=== PATIENT | male | born 1950 | race American Indian/Alaskan Native ===

== ENCOUNTER 2021-09-01 14:25 | Emergency (ER) | payer MEDICARE, MEDICAID, SELFPAY ==
[2021-09-01 14:29] VITALS: BP 127/69; PULSE 67; RESP 22; TEMP 36.7; O2SAT 99
[2021-09-01] MEDS: PROPARACAINE 0.5% OPHTH SOL 1 DROPS EYE-BOTH (16:25)
--- NOTE | 2021-09-01 16:32 | ED_ITS ---
HPI - Eye Problem <Tyree Louise PA-C - Last Filed: 09/03/21 12:03> General Chief complaint: Eye Problems Stated complaint: EYE PAIN SHARP PAIN UNABLE TO OPEN Time Seen by Provider: 09/01/21 16:15 Source: patient Mode of arrival: Ambulatory History of Present Illness HPI Narrative: 62-year-old male presenting to the ED complaining of bilateral eye pain that started yesterday no reported eye trauma or any foreign bodies in her knee I patient started complaining of mostly pain in the left eye however it progressed into both eyes he was evaluated by PCP was told to come to the emergency room for continued evaluation no prior eye history no recent trauma no foreign body no known exposure reported patient reporting pain in both eyes. Related Data Home Medications Medication Instructions Recorded Confirmed aspirin 81 mg chewable tablet 81 mg PO DAILY 11/19/17 03/15/18 benztropine 0.5 mg tablet 0.5 mg PO TID 11/19/17 03/15/18 fluoxetine 60 mg tablet 60 mg PO DAILY 11/19/17 03/15/18 hydroxyzine pamoate 25 mg capsule 25 mg PO TID PRN 11/19/17 03/15/18 levetiracetam 500 mg tablet 500 mg PO Q12H 11/19/17 03/15/18 risperidone 2 mg tablet 4 mg PO DAILY 11/19/17 03/15/18 Previous Rx's Medication Instructions Recorded meclizine 25 mg tablet 25 mg PO BID PRN #10 tab 11/19/17 Allergies Allergy/AdvReac Type Severity Reaction Status Date / Time No Known Drug Allergies Allergy Verified 11/19/17 12:26 Review of Systems <Tyree Louise PA-C - Last Filed: 09/03/21 12:03> Review of Systems ROS Unobtainable: All systems reviewed & are unremarkable except as noted in HPI and below Constitutional Constitutional: Denies chills, Denies fatigue, Denies fever(s), Denies frequent falls, Denies lethargy and Denies weakness Eyes Eyes: Reports change in vision, Denies eye discharge, Reports irritation, Denies loss of vision and Reports eye pain ENT Ears, Nose, Mouth, and Throat: Denies change in voice, Denies dizziness, Denies neck pain, Denies sore throat and Denies throat swelling Cardiovascular Cardiovascular: Denies chest pain, Denies irregular heart rhythm, Denies lightheadedness, Denies palpitations, Denies dyspnea, Denies dyspnea on exertion and Denies orthopnea Respiratory Respiratory: Denies cough, Denies dyspnea, Denies dyspnea on exertion and Denies wheezing Gastrointestinal Gastrointestinal: Denies abdominal pain, Denies change in bowel habits, Denies diarrhea, Denies nausea and Denies vomiting Genitourinary Genitourinary: Denies hematuria, Denies flank pain, Denies urinary incontinence and Denies urinary urgency Musculoskeletal Musculoskeletal: Denies back pain, Denies muscle weakness, Denies neck pain, Denies numbness and Denies tingling Integumentary/Breasts Skin/Breast: Denies pruritus, Denies erythema, Denies rash and Denies wounds Neurologic Neurologic: Denies behavioral changes, Denies confusion, Denies dizziness, Denies frequent falls, Denies loss of vision, Denies numbness, Denies tingling and Denies weakness Psychiatric Psychiatric: Denies anxiety, Denies behavioral changes, Denies confusion, Denies depression, Denies homicidal ideation and Denies suicidal ideation Endocrine Endocrine: Denies fatigue, Denies flushing and Denies palpitations Hematologic/Lymphatic Hematologic/Lymphatic: Denies easy bruising Allergic/Immunologic Allergic/Immunologic: Denies urticaria, Denies throat swelling and Denies wheezing Patient History <Tyree Louise PA-C - Last Filed: 09/03/21 12:03> Medical History Anemia Epilepsy Psychoactive substance abuse Schizophrenia Tobacco abuse Surgical History No significant past surgical history No significant past surgical history Social History household members: none lives independently: Yes occupational status: unemployed Smoking Status: Current some day smoker alcohol intake: never substance use type: does not use Smoking Status: Current some day smoker Substance Use Type: does not use Exam <Tyree Louise PA-C - Last Filed: 09/03/21 12:03> Initial Vital Signs Initial Vital Signs: Vital Signs Temperature 98.1 F 09/01/21 14:29 Pulse Rate 67 09/01/21 14:29 Respiratory Rate 22 09/01/21 14:29 Blood Pressure 127/69 09/01/21 14:29 Pulse Oximetry 99 09/01/21 14:29 Eyes General: appearance normal, both eyes and all related structures Conjunctivae: conjunctival abnormality bilaterally other Cornea: fluorescein used Pupils: PERRL EOM: EOM intact bilaterally Other: Tonometer her performed ocular pressure in the right side measured at 17 left side 19 <Maddie Senior DO - Last Filed: 09/02/21 06:50> Initial Vital Signs Initial Vital Signs: Vital Signs Temperature 98.1 F 09/01/21 14:29 Pulse Rate 67 09/01/21 14:29 Respiratory Rate 22 09/01/21 14:29 Blood Pressure 127/69 09/01/21 14:29 Pulse Oximetry 99 09/01/21 14:29 Course <Tyree Louise PA-C - Last Filed: 09/03/21 12:03> Orders Ordered: Discontinued Medications Fluorescein Sodium (Fluorescein 1 Mg Strip) 1 mg EYE-BOTH NOW ONE Stop: 09/01/21 16:32 Last Admin: 09/01/21 17:11 Dose: 1 mg Documented by: SIMONE Proparacaine HCl (Proparacaine 0.5% Ophth Ilnda) 1 drops EYE-BOTH NOW ONE Stop: 09/01/21 16:21 Last Admin: 09/01/21 16:25 Dose: 1 drop Documented by: SIMONE Vital Signs Vital signs: Vital Signs - 8 hr 09/01/21 14:29 Temperature 98.1 F Pulse Rate 67 Respiratory Rate 22 Blood Pressure 127/69 Pulse Oximetry 99 <Maddie Senior DO - Last Filed: 09/02/21 06:50> Orders Ordered: Discontinued Medications Fluorescein Sodium (Fluorescein 1 Mg Strip) 1 mg EYE-BOTH NOW ONE Stop: 09/01/21 16:32 Last Admin: 09/01/21 17:11 Dose: 1 mg Documented by: SIMONE Proparacaine HCl (Proparacaine 0.5% Ophth Linda) 1 drops EYE-BOTH NOW ONE Stop: 09/01/21 16:21 Last Admin: 09/01/21 16:25 Dose: 1 drop Documented by: SIMONE Reevaluation(s) Reevaluation #1: Patient signed out to myself by Dr. Curry and IAN Louise. Patient is accompanied by his family. Reviewed his HPI and exam. Patient does normally wear glasses he has had decreased vision today his intra-ocular pressures were 17 and 19 with a Chevy dendritic almost cactus like lesion on the right the medial canthus upwards and what appeared to be a sort of wide corneal abrasion on the left. Very atypical no skin changes. Patient does not have any known autoimmune history. He does have schizophrenia. He does not wear contacts. After discussion with Ophthalmology they feel would be appropriate for patient to come down with his atypical type exam findings and the different pathways of treatment that would occur. Patient's family is agreeable to this they have transportation as he has a travel elder and plan to transport via private auto. Time: 20:31 Consultations Consultation #1: Dr. Toney, ophthalmology [facility] accepts for transfer to [facility] Emergency Department for further evaluation. Vital Signs Vital signs: Vital Signs - 8 hr 09/01/21 14:29 Temperature 98.1 F Pulse Rate 67 Respiratory Rate 22 Blood Pressure 127/69 Pulse Oximetry 99 MDM - Eye Problem <Tyree Louise PA-C - Last Filed: 09/03/21 12:03> Lab Data Labs: Lab Results 09/01/21 Range/Units 20:34 SARS-CoV-2 (PCR) Negative (Negative) <Maddie Sneior DO - Last Filed: 09/02/21 06:50> Lab Data Labs: Lab Results 09/01/21 Range/Units 20:34 SARS-CoV-2 (PCR) Negative (Negative) MDM Narrative Medical decision making narrative: This is a 70-year-old male comes in with sharp by pain. Patient was evaluated by Dr. Rivera as well as POLO Louise. Concern for may be dendritic lesion versus corneal abrasion but bilaterally with the atypical story. Patient does not have any exam findings otherwise consistent with shingles. Spoke with ophthalmology who would like to see him at [facility] and patient was transferred via private auto. Discharge Plan Departure Patient Disposition: [facility] Clinical Impression: Corneal abrasion Activity Restrictions/Additional Instructions: Go directly to [facility] Emergency Department for further evaluations of the abrasions or injuries to her cornea and eye. You are being transferred by private auto. When you present to the emergency department given the packet of paperwork that was given to him the department. COVID swab is pending and will be faxed to the emergency department. Prescriptions: No Action hydroxyzine pamoate 25 mg Capsule 25 mg PO TID PRN (Reason: Anxiety) 0RF risperidone 2 mg Tablet 4 mg PO DAILY 0RF fluoxetine 60 mg Tablet 60 mg PO DAILY 0RF benztropine 0.5 mg Tablet 0.5 mg PO TID 0RF levetiracetam 500 mg Tablet 500 mg PO Q12H 0RF aspirin 81 mg Tablet,Chewable 81 mg PO DAILY 0RF meclizine 25 mg tablet 25 mg PO BID PRN (Reason: vertigo) Qty: 10 0RF
[2021-09-01] MEDS: FLUORESCEIN 1 MG STRIP EYE-BOTH (17:11)
[2021-09-01 20:49] VITALS: PULSE 89; RESP 14; O2SAT 97
[2021-09-01 21:07] LABS: COVID19 -Nasal RAPID Negative (Negative)
--- NOTE | 2021-09-01 21:16 | PC.NURSE ---
Negative Covid results faxed to [facility] / transfer center @ [phone].
== END 2021-09-01 20:52 | disposition short-term general hospital (02) ==
PROVIDERS: Emergency Medicine; Emergency Provider Physician Assistant
DX: S05.02XA Injury of conjunctiva and corneal abrasion without foreign body, left eye, initial encounter (principal); S05.01XA Injury of conjunctiva and corneal abrasion without foreign body, right eye, initial encounter; X58.XXXA Exposure to other specified factors, initial encounter; Z20.822 Contact with and (suspected) exposure to COVID-19
CPT/HCPCS: 87635; 99282; C9803

== ENCOUNTER 2021-12-02 19:55 | Emergency (ER) | payer MEDICARE, MEDICAID, SELFPAY ==
[2021-12-02 19:57] VITALS: BP 167/73; PULSE 72; O2SAT 99
[2021-12-02 19:59] VITALS: BP 163/73; PULSE 85; RESP 18; TEMP 36.9; O2SAT 99; BMI 25.6
[2021-12-02 20:00] VITALS: PULSE 69; O2SAT 99
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
== END 2021-12-02 20:42 | disposition left against medical advice (07) ==
LOC: ED 20:39
PROVIDERS: Emergency Provider Emergency Medicine
DX: S40.011A Contusion of right shoulder, initial encounter (principal); Y04.2XXA Assault by strike against or bumped into by another person, initial encounter; Y92.59 Other trade areas as the place of occurrence of the external cause; Z53.29 Procedure and treatment not carried out because of patient's decision for other reasons
CPT/HCPCS: 36415; 99282; 99284

== ENCOUNTER 2022-04-01 19:28 | Emergency (ER) | payer MEDICARE, MEDICAID, SELFPAY ==
[2022-04-01] VITALS (14 sets, daily range): BP systolic 135–152; BP diastolic 65–99; PULSE 55–67; RESP 18–32; TEMP 36.6; O2SAT 90–99
--- NOTE | 2022-04-01 19:33 | DI.CT.S_ITS ---
PROCEDURE: CT HEAD/BRAIN WO CON INDICATIONS: altered LOC TECHNIQUE: Noncontrast 4.5 mm thick angled axial sections acquired from the foramen magnum to the vertex, with coronal and sagittal reformats. For radiation dose reduction, the following was used: automated exposure control, adjustment of mA and/or kV according to patient size. COMPARISON: [facility], CT, CT HEAD WITHOUT CONTRAST, 02/10/2021, 21:01. [facility], CT, CT HEAD/BRAIN WO CON, 11/19/2017, 12:02. FINDINGS: Image quality: Excellent. CSF spaces: Basal cisterns are patent. No extra-axial fluid collections. The ventricles are symmetric in size and shape. Brain: No intracranial bleeds or masses. There is cerebral volume loss for age, with resultant ventricular and sulcal prominence. There are periventricular and deep white matter chronic small vessel ischemic changes. There is intracranial internal carotid artery atherosclerosis. Skull and face: Calvarium and visualized facial bones appear intact, without suspicious lesions. There is a lateral right forehead laceration a small superficial radiopaque scalp foreign body. Reference image /. Sinuses: Visualized sinuses and mastoids are clear. IMPRESSION: 1. Scalp laceration with small foreign body. 2. No evidence acute intracranial process. Dictated by: Jimi Colunga M.D. on 04/01/2022 at 20:17 Approved by: Jimi Colunga M.D. on 04/01/2022 at 20:19
--- NOTE | 2022-04-01 19:33 | DI.CT.S_ITS ---
PROCEDURE: CT CERVICAL SPINE WO CON INDICATIONS: altered LOC TECHNIQUE: Noncontrast 3 mm thick sections acquired from the skull base to the T4 level. Sagittal and coronal reformats were then constructed. For radiation dose reduction, the following was used: automated exposure control, adjustment of mA and/or kV according to patient size. COMPARISON: [facility], CT, CT CERVICAL SPINE WO CON, 11/19/2017, 12:02. FINDINGS: Image quality: Excellent. Bones: No fractures or dislocations. Visualized superior ribs are intact. Severe cervical spondylosis with advanced multilevel facet arthropathy and multilevel bony foraminal narrowing. Soft tissues: Prevertebral soft tissues are normal in thickness. No paravertebral hematomas. No apical pneumothoraces. Biapical emphysematous change with multiple right apical blebs. IMPRESSION: 1. No evidence acute cervical fracture or dislocation. 2. Severe cervical spondylosis. 3. Biapical emphysematous change. Dictated by: Jimi Colunga M.D. on 04/01/2022 at 20:19 Approved by: Jimi Colunga M.D. on 04/01/2022 at 20:21
--- NOTE | 2022-04-01 19:34 | ED_ITS ---
HPI - Trauma General Chief Complaint: Trauma Stated Complaint: Altered LOC Time Seen by Provider: 04/01/22 19:33 Source: patient Mode of arrival: Ambulatory Limitations: no limitations History of Present Illness HPI narrative: 71-year-old male with history of epilepsy, substance abuse and schizophrenia who presents after ground level fall. Fall happened around noon today, patient states he was here the [place] and taken to a local clinic where he left. Family was called states he is not acting his normal self. Patient does have a laceration on his forehead. Patient is able to tell me had a fall, he states he was over by the [place], does not believe that he passed out or had loss of consciousness but he does have a headache, he does feel off today, he denies neck, chest or back pain. No numbness or tingling. He denies any vomiting. Denies any shortness of breath. He states he has problems with urination normally supposed to take medicine for this. Denies any other GI or urinary symptoms. Patient states it feels like there is something stuck under the skin at his cut. He states there was a lot of bleeding. Patient states he takes medication for his brain to make it work better, he states he has a caregiver that comes to his house and helps with him. Patient denies any drug allergies. Denies alcohol. Related Data Home Medications Medication Instructions Recorded Confirmed aspirin 81 mg chewable tablet 81 mg PO DAILY 11/19/17 03/15/18 benztropine 0.5 mg tablet 0.5 mg PO TID 11/19/17 03/15/18 fluoxetine 60 mg tablet 60 mg PO DAILY 11/19/17 03/15/18 hydroxyzine pamoate 25 mg capsule 25 mg PO TID PRN Anxiety 11/19/17 03/15/18 levetiracetam 500 mg tablet 500 mg PO Q12H 11/19/17 03/15/18 risperidone 2 mg tablet 4 mg PO DAILY 11/19/17 03/15/18 Previous Rx's Medication Instructions Recorded meclizine 25 mg tablet 25 mg PO BID PRN vertigo #10 tabs 11/19/17 cephalexin 500 mg capsule 500 mg PO BID #10 caps 04/02/22 Allergies Allergy/AdvReac Type Severity Reaction Status Date / Time No Known Drug Allergies Allergy Verified 12/02/21 20:02 Review of Systems Review of Systems ROS Unobtainable: All systems reviewed & are unremarkable except as noted in HPI and below Patient History Medical History Anemia Epilepsy Psychoactive substance abuse Schizophrenia Tobacco abuse Surgical History No significant past surgical history No significant past surgical history Social History household members: none lives independently: Yes occupational status: unemployed Smoking Status: Current some day smoker alcohol intake: never substance use type: does not use Smoking Status: Current some day smoker Substance Use Type: does not use Exam Narrative Exam Narrative: GEN: Patient appears in moderate distress. Patient seems quite uncomfortable, he seems mildly confused. HEAD: Patient has 4 cm laceration over the scalp with the edge of the hairline which does have feels like a large foreign body, no raccoon/Elder sign. NECK: Nontender, painless range of motion, trachea midline Negative for Nexus criteria, there is no midline line tenderness, distracting injury, altered mental status, neuro deficit, recent EtOH. EYES: PERRLA, EOMI ENT: External inspection normal otherwise, trachea is midline, TM's are normal no hemotypanum, Nares are clear, no septal hematoma, no dental or oral injury, airway is normal and with normal occlusion, No bony tenderness RESP: Chest is nontender and has symmetric movement, no ecchymosis, breath sounds are normal no crackles, wheezes or rales CVS: Heart sounds are normal, no murmur noted, No JVD. ABG/GI: Nontender, soft, normal bowel sounds, no distention, no organomegaly, pelvic rock is negative NEURO: Oriented self and location, neuro is grossly intact, sensation and motor is normal all 4 extremities moving, cranial nerves II through XII are intact, GCS is 14 PSYCH: Normal mood and affect SKIN: Intact, warm and dry, no crepitus and without decubitus BACK: No CVA tenderness, no vertebral tenderness, no step-off's, no crepitus EXT: Atraumatic, hips are nontender, no pedal edema, normal color and temperature, normal range of motion of extremities with normal tendon exam, 2+ pulses in all four extremities Initial Vital Signs Initial Vital Signs: Vital Signs Temperature 97.9 F 04/01/22 19:20 Pulse Rate 67 04/01/22 19:20 Respiratory Rate 18 04/01/22 19:20 Blood Pressure 147/85 H 04/01/22 19:20 Pulse Oximetry 99 04/01/22 19:20 Oxygen Delivery Method 04/01/22 19:20 Course Orders Ordered: ED Orders 04/02/22 01:19 Urine Drug Screen, Rapid Stat Discontinued Medications Cephalexin HCl (Cephalexin 250 Mg Capsule) 500 mg PO NOW ONE Stop: 04/02/22 03:06 Last Admin: 04/02/22 03:09 Dose: 500 mg Documented By: COLT Lidocaine HCl (Lidocaine 2% Inj Mdv 10ml) 10 mg INJ INTRA-OP ONE Stop: 04/01/22 22:12 Last Admin: 04/02/22 02:59 Dose: Not Given Documented By: COLT Lidocaine/Prilocaine (Lidocaine/Prilocaine 5 Gm) 5 gm TOP NOW ONE Stop: 04/01/22 22:12 Last Admin: 04/01/22 22:32 Dose: 5 gm Documented By: AMADEO Morphine Sulfate (Morphine 2 Mg/Ml Inj) 2 mg IV NOW ONE Stop: 04/01/22 22:12 Last Admin: 04/01/22 22:32 Dose: 2 mg Documented By: AMADEO Vital Signs Vital signs: Vital Signs - 8 hr 04/02/22 00:00 04/02/22 00:01 04/02/22 00:01 Pulse Rate 54 L 54 L Respiratory Rate 22 19 Blood Pressure 135/65 Pulse Oximetry 98 98 04/02/22 00:30 04/02/22 00:31 04/02/22 00:31 Pulse Rate 53 L 53 L Respiratory Rate 22 22 Blood Pressure 143/80 H Pulse Oximetry 97 93 04/02/22 01:00 04/02/22 01:01 04/02/22 01:01 Pulse Rate 53 L 53 L Respiratory Rate 31 H 24 Blood Pressure 126/60 Pulse Oximetry 98 97 04/02/22 01:30 04/02/22 01:30 04/02/22 02:00 Pulse Rate 55 L Respiratory Rate 23 Blood Pressure 118/91 H 127/63 Pulse Oximetry 98 04/02/22 02:00 04/02/22 02:30 04/02/22 02:31 Pulse Rate 52 L 74 Respiratory Rate 26 H 20 Blood Pressure 144/61 H Pulse Oximetry 98 95 04/02/22 02:31 04/02/22 03:00 04/02/22 03:01 Pulse Rate 68 59 L 59 L Respiratory Rate 33 H 28 H 22 Blood Pressure Pulse Oximetry 94 94 94 04/02/22 03:01 04/02/22 03:30 04/02/22 03:31 Pulse Rate 53 L 53 L Respiratory Rate 24 24 Blood Pressure 142/65 H Pulse Oximetry 94 94 04/02/22 03:31 04/02/22 04:00 04/02/22 04:30 Pulse Rate 52 L Respiratory Rate 19 Blood Pressure 133/60 138/67 Pulse Oximetry 98 04/02/22 04:30 04/02/22 05:00 04/02/22 05:00 Pulse Rate 51 L 51 L Respiratory Rate 18 19 Blood Pressure 129/63 Pulse Oximetry 99 99 04/02/22 05:30 04/02/22 06:00 04/02/22 06:00 Pulse Rate 54 L 61 Respiratory Rate 23 34 H Blood Pressure 141/59 H Pulse Oximetry 99 98 04/02/22 06:07 04/02/22 06:07 04/02/22 06:30 Pulse Rate 65 71 Respiratory Rate 43 H 40 H Blood Pressure 139/64 Pulse Oximetry MDM - Trauma Lab Data Result diagrams: 04/01/22 19:20 04/01/22 19:20 Labs: Lab Results 04/01/22 04/01/22 04/01/22 Range/Units 19:20 19:20 19:20 WBC 8.5 (4.5-11.0) X10^3/uL RBC 4.43 L (4.5-5.9) X10^6/uL Hgb 12.7 L (13.5-17.5) g/dL Hct 37.1 L (41-53) % MCV 83.6 (80-100) fL MCH 28.7 (26-34) PG MCHC 34.3 (30-36) % RDW 15.9 H (11.6-14.8) % Plt Count 248 (150-400) X10^3/uL Neut % (Auto) 72.6 (50-75) % Lymph % (Auto) 18.1 L (25-40) % [place]house % (Auto) 5.9 (3-14) % Eos % (Auto) 2.5 (2-4) % Baso % (Auto) 0.9 (0-2) % Neut # (Auto) 6200 (7653-4638) /uL Lymph # (Auto) 1500 (2714-7939) /uL [place] # (Auto) 500 (0-900) /uL Eos # (Auto) 200 (0-450) /uL Baso # (Auto) 100 (0-100) /uL PT 12.3 (10.1-12.7) SECONDS INR 1.1 (0.9-1.3) APTT 30 (26-36) SECONDS Sodium 141 (137-145) mmol/L Potassium 3.9 (3.4-5.1) mmol/L Chloride 107 (98-107) mmol/L Carbon Dioxide 24 (22-32) mmol/L BUN 16 (9-20) mg/dL Creatinine 0.92 (0.66-1.25) mg/dL Estimated GFR > 60 (>60) mL/min BUN/Creatinine Ratio 17.4 (6-22) Glucose 96 (80-110) mg/dL Calcium 8.4 (8.4-10.2) mg/dL Total Bilirubin 0.6 (0.2-1.3) mg/dL AST 28 (17-59) IU/L ALT 13 (<50) IU/L Alkaline Phosphatase 95 (38-126) U/L Total Creatine Kinase 120 (55-170) U/L CK-MB (CK-2) 2.60 H (<2.37) ng/mL CK-MB (CK-2) Rel Index 2.2 (1.5-5.0) % Troponin I < 0.012 (0.01-0.034) ng/mL Total Protein 7.0 (6.3-8.2) g/dL Albumin 3.7 (3.5-5.0) g/dL Globulin 3.3 (1.7-4.1) g/dL Albumin/Globulin Ratio 1.1 (1.0-2.8) Lipase 91 (23-300) U/L U Opiates 300ng/mL cut (Negative) Ur Oxycodone Screen (Negative) Urine Methadone Screen (Negative) Ur Barbiturates Screen (Negative) U Tricyclic Antidepress (Negative) Ur Phencyclidine Scrn (Negative) Ur Amphetamines Screen (Negative) U Methamphetamines Scrn (Negative) Ur MDMA Scrn (Ecstasy) (Negative) U Benzodiazepines Scrn (Negative) Urine Cocaine Screen (Negative) U Marijuana (THC) Screen (Negative) Ethyl Alcohol < 10 ( - 10) mg/dL Blood Type Antibody Screen 04/01/22 04/02/22 Range/Units 20:11 01:19 WBC (4.5-11.0) X10^3/uL RBC (4.5-5.9) X10^6/uL Hgb (13.5-17.5) g/dL Hct (41-53) % MCV (80-100) fL MCH (26-34) PG MCHC (30-36) % RDW (11.6-14.8) % Plt Count (150-400) X10^3/uL Neut % (Auto) (50-75) % Lymph % (Auto) (25-40) % [place] % (Auto) (3-14) % Eos % (Auto) (2-4) % Baso % (Auto) (0-2) % Neut # (Auto) (4383-5076) /uL Lymph # (Auto) (6096-0077) /uL [place] # (Auto) (0-900) /uL Eos # (Auto) (0-450) /uL Baso # (Auto) (0-100) /uL PT (10.1-12.7) SECONDS INR (0.9-1.3) APTT (26-36) SECONDS Sodium (137-145) mmol/L Potassium (3.4-5.1) mmol/L Chloride (98-107) mmol/L Carbon Dioxide (22-32) mmol/L BUN (9-20) mg/dL Creatinine (0.66-1.25) mg/dL Estimated GFR (>60) mL/min BUN/Creatinine Ratio (6-22) Glucose (80-110) mg/dL Calcium (8.4-10.2) mg/dL Total Bilirubin (0.2-1.3) mg/dL AST (17-59) IU/L ALT (<50) IU/L Alkaline Phosphatase (38-126) U/L Total Creatine Kinase (55-170) U/L CK-MB (CK-2) (<2.37) ng/mL CK-MB (CK-2) Rel Index (1.5-5.0) % Troponin I (0.01-0.034) ng/mL Total Protein (6.3-8.2) g/dL Albumin (3.5-5.0) g/dL Globulin (1.7-4.1) g/dL Albumin/Globulin Ratio (1.0-2.8) Lipase (23-300) U/L U Opiates 300ng/mL cut Positive H (Negative) Ur Oxycodone Screen Negative (Negative) Urine Methadone Screen Negative (Negative) Ur Barbiturates Screen Negative (Negative) U Tricyclic Antidepress Negative (Negative) Ur Phencyclidine Scrn Negative (Negative) Ur Amphetamines Screen Negative (Negative) U Methamphetamines Scrn Negative (Negative) Ur MDMA Scrn (Ecstasy) Negative (Negative) U Benzodiazepines Scrn Negative (Negative) Urine Cocaine Screen Negative (Negative) U Marijuana (THC) Screen Positive H (Negative) Ethyl Alcohol ( - 10) mg/dL Blood Type B Positive Antibody Screen Negative Imaging Data CT scan - head: Radiologist's Impression: Bart Adams V??71??M??1950 ? Allergy/Adv: No Known Drug Allergies Close Wrist X-Ray (Signed) CorralesSam - 04/01/22 Chest X-Ray (Signed) Sam Corrales - 04/01/[address] (Signed) Jimi Colunga - 04/01/[address] (Signed) Jimi Colunga - 04/01/22 Femur X-Ray (Signed) Lois Sierra - 11/19/[address] (Signed) Lois Sierra - 11/19/[address] (Signed) Lois Sierra - 11/19/17 Launch?[address] [address] [address] Scan Report Signed Patient: Bart Adams V MR#: [id number] : 1950 Acct:[id number] Age/Sex: 71 / M Date of Service: 04/01/22 Loc: ED Accession Number: [id number] ?? Procedure: CT head/brain wo con Ordering Provider: Maddie Senior D.O. PROCEDURE:? CT HEAD/BRAIN WO CON ? INDICATIONS:? altered LOC ? TECHNIQUE:? Noncontrast 4.5 mm thick angled axial sections acquired from the foramen magnum to the vertex, with coronal and sagittal reformats.? For radiation dose reduction, the following was used:? automated exposure control, adjustment of mA and/or kV according to patient size.? ? COMPARISON:? [facility], CT, CT HEAD WITHOUT CONTRAST, 02/10/2021, 21:01.? [facility], CT, CT HEAD/BRAIN WO CON, 11/19/2017, 12:02. ? FINDINGS:? Image quality:? Excellent.? ? CSF spaces:? Basal cisterns are patent.? No extra-axial fluid collections.? The ventricles are symmetric in size and shape.? ? Brain:? No intracranial bleeds or masses.? There is cerebral volume loss for age, with resultant ventricular and sulcal prominence.? There are periventricular and deep white matter chronic small vessel ischemic changes.? There is intracranial internal carotid artery atherosclerosis.? ? Skull and face:? Calvarium and visualized facial bones appear intact, without s uspicious lesions.? There is a lateral right forehead laceration a small superficial radiopaque scalp foreign body.? Reference image 20/2. ? Sinuses:? Visualized sinuses and mastoids are clear.? ? IMPRESSION:? ? 1. Scalp laceration with small foreign body. ? 2. No evidence acute intracranial process.? ? ? Dictated by: Jimi Colunga M.D. on 04/01/2022 at 20:17 ? ? Approved by: Jimi Colunga M.D. on 04/01/2022 at 20:19?? CT - cervical spine: Radiologist's Impression: [address] [address] [address] Scan Report Signed Patient: Bart Adams V MR#: [id number] : 1950 Acct:[id number] Age/Sex: 71 / M Date of Service: 04/01/22 Loc: ED Accession Number: [id number] ?? Procedure: CT cervical spine wo con Ordering Provider: Maddie Senior D.O. PROCEDURE:? CT CERVICAL SPINE WO CON ? INDICATIONS:? altered LOC ? TECHNIQUE:? Noncontrast 3 mm thick sections acquired from the skull base to the T4 level.? Sagittal and coronal reformats were then constructed.? For radiation dose reduction, the following was used:? automated exposure control, adjustment of mA and/or kV according to patient size.? ? COMPARISON:? [facility], CT, CT CERVICAL SPINE WO CON, 11/19/2017, 12:02. ? FINDINGS:? Image quality:? Excellent.? ? Bones:? No fractures or dislocations.? Visualized superior ribs are intact.? Severe cervical spondylosis with advanced multilevel facet arthropathy and multilevel bony foraminal narrowing.? ? Soft tissues:? Prevertebral soft tissues are normal in thickness.? No paravertebral hematomas.? No apical pneumothoraces.? Biapical emphysematous change with multiple right apical blebs. ? ? IMPRESSION:? ? 1. No evidence acute cervical fracture or dislocation. ? 2. Severe cervical spondylosis. ? 3. Biapical emphysematous change.? Dictated by: Jimi Colunga M.D. on 04/01/2022 at 20:19 ? ? Approved by: Jimi Colunga M.D. on 04/01/2022 at 20:21?? Chest x-ray: Radiologist's Impression: Close Wrist X-Ray (Signed) Sam Corrales - 04/01/22 Chest X-Ray (Signed) Sam Corrales - 04/01/[address] (Signed) Jimi Colunga - 04/01/[address] (Signed) Jimi Colunga - 04/01/22 Femur X-Ray (Signed) Lois Sierra - 11/19/[address] (Signed) Lois Sierra - 11/19/[address] (Signed) Lois Sierra - 11/19/17 Launch?Image [address] [address] XRay Report Signed Patient: Bart Adams V MR#: [id number] : 1950 Acct:[id number] Age/Sex: 71 / M Date of Service: 04/01/22 Loc: ED Accession Number: [id number] ?? Procedure: XR chest 1V Ordering Provider: Maddie Senior D.O. PROCEDURE:? XR CHEST 1V ? INDICATIONS:? fall, hit head ? TECHNIQUE:? One view of the chest was acquired.? ? COMPARISON:? [facility], CR, XR CHEST 1 VIEW, 02/18/2019, 6:42.? [facility], CR, XR CHEST 1 VIEW, 07/16/2019, 19:00.? [facility], CT, CT ANGIO CHEST ABDOMEN PELVIS, 02/28/2022, 13:28.? [facility], CR, XR CHEST 1 VIEW, 02/28/2022, 9:43. ? FINDINGS:? ? Surgical changes and devices:? None.? ? Lungs and pleura:? There are linear interstitial opacities and scarring within the lung apices redemonstrated.? A nodular opacity in the right apex measuring up to approximately 0.8 cm appears similar to the prior exam but increased in prominence compared to the 07/16/2019 study.? No pleural effusions or pneumothorax.? ? Mediastinum:? Mediastinal contours appear normal.? Heart size is normal.? ? Bones and chest wall:? No acute displaced fractures identified.? There are multiple healed left rib fractures.? No suspicious bony lesions.? Overlying soft tissues appear unremarkable.? ? IMPRESSION:? ? 1. No definite acute traumatic abnormality. ? 2. Scarring redemonstrated within the lung apices with a nodular opacity in the right apex which appears similar to the prior study but increased in size compared to older exams.? Recommend a follow-up chest CT in 6 months to demonstrate stability if clinically indicated.? ? Dictated by: Sam Corrales M.D. on 04/01/2022 at 20:26 ? ? Approved by: Sam Corrales M.D. on 04/01/2022 at 20:31?? Extremity x-ray #1: Radiologist's Impression: Bart Adams V??71??M??1950 ? Allergy/Adv: No Known Drug Allergies Close Wrist X-Ray (Signed) Sam Corrales - 04/01/22 Chest X-Ray (Signed) Sam Corrales - 04/01/[address] (Signed) Jimi Colunga - 04/01/[address] (Signed) Jimi Colunga - 04/01/22 Femur X-Ray (Signed) Lois Sierra - 11/19/[address] (Signed) MarielaLois - 11/19/[address] (Signed) MarielaLois - 11/19/17 Launch?[address] [address] XRay Report Signed Patient: Bart Adams V MR#: [id number] : 1950 Acct:[id number] Age/Sex: 71 / M Date of Service: 04/01/22 Loc: ED Accession Number: [id number] ?? Procedure: XR wrist RT min 3V Ordering Provider: Maddie Senior D.O. PROCEDURE:? XR WRIST RT MIN 3V ? INDICATIONS: Fall, Pain ? TECHNIQUE:? 4 views of the wrist were acquired.? ? COMPARISON:? None. ? FINDINGS:? ? Bones:? No fractures or dislocations.? No suspicious bony lesions.? ? Scaphoid view:? The scaphoid appears intact. ? Soft tissues:? No suspicious soft tissue calcifications.? ? IMPRESSION:? ? 1. No fracture or dislocation.? ? ? Dictated by: Sam Corrales M.D. on 04/01/2022 at 23:43 ? ? Approved by: Sam Corrales M.D. on 04/01/2022 at 23:43? ECG Data Attestation: I personally reviewed and interpreted this ECG as follows: Interpretation: Junctional rhythm rate of 62 QRS is 70 QTC of 412. No acute ST elevation patient sinus rhythm and be hidden by artifact motion. MDM Narrative Medical decision making narrative: This is a 71-year-old male who presents with fall, laceration to the forehead with on imaging what appears to be a foreign body and on exam. Was able to extract a large rock consistent with shape and size on the CT area was irrigated quite a bit and closed, patient started on oral antibiotics head C-spine and chest were obtained. Patient does not have other pain other than in his wrist this was also obtained no fracture was noted to have possible nodule on his chest patient needs to follow-up. Patient's labs do not show any other major abnormalities. Mentation appears to be at baseline he does have a history of schizophrenia but seems calm, appropriate making appropriate decisions at this time. Discharge Plan Departure Patient Disposition: Home Clinical Impression: Head injury, Forehead laceration Instructions: Concussion, DI for Laceration Repair -- Simple Activity Restrictions/Additional Instructions: Please follow-up for recheck if you are having any persistent symptoms. You have a nodule in the right lung that appears to have increased in size compared to old chest x-rays recommended to have a CT in 6 months of your chest or in September of 2022. You had a large rock in the cut on your forehead, this was removed, washed out but please take antibiotics until they are completely gone. Prescription sent to [facility]. Please return for new or concerning changes signs of infection, severe headaches, passing out, persistent vomiting, new chest pain, shortness of breath, new numbness or weakness or other new or concerning symptoms. Prescriptions: New cephalexin 500 mg capsule 500 mg PO BID Qty: 10 0RF No Action hydroxyzine pamoate 25 mg Capsule 25 mg PO TID PRN (Reason: Anxiety) risperidone 2 mg Tablet 4 mg PO DAILY fluoxetine 60 mg Tablet 60 mg PO DAILY benztropine 0.5 mg Tablet 0.5 mg PO TID levetiracetam 500 mg Tablet 500 mg PO Q12H aspirin 81 mg Tablet,Chewable 81 mg PO DAILY meclizine 25 mg tablet 25 mg PO BID PRN (Reason: vertigo) Qty: 10 0RF Visit Report Forms: Patient Portal/API
--- NOTE | 2022-04-01 19:34 | DI.RAD.S_ITS ---
PROCEDURE: XR CHEST 1V INDICATIONS: fall, hit head TECHNIQUE: One view of the chest was acquired. COMPARISON: [facility], CR, XR CHEST 1 VIEW, 02/18/2019, 6:42. [facility], CR, XR CHEST 1 VIEW, 07/16/2019, 19:00. [facility], CT, CT ANGIO CHEST ABDOMEN PELVIS, 02/28/2022, 13:28. [facility], CR, XR CHEST 1 VIEW, 02/28/2022, 9:43. FINDINGS: Surgical changes and devices: None. Lungs and pleura: There are linear interstitial opacities and scarring within the lung apices redemonstrated. A nodular opacity in the right apex measuring up to approximately 0.8 cm appears similar to the prior exam but increased in prominence compared to the 07/16/2019 study. No pleural effusions or pneumothorax. Mediastinum: Mediastinal contours appear normal. Heart size is normal. Bones and chest wall: No acute displaced fractures identified. There are multiple healed left rib fractures. No suspicious bony lesions. Overlying soft tissues appear unremarkable. IMPRESSION: 1. No definite acute traumatic abnormality. 2. Scarring redemonstrated within the lung apices with a nodular opacity in the right apex which appears similar to the prior study but increased in size compared to older exams. Recommend a follow-up chest CT in 6 months to demonstrate stability if clinically indicated. Dictated by: Sam Corrales M.D. on 04/01/2022 at 20:26 Approved by: Sam Corrales M.D. on 04/01/2022 at 20:31
[2022-04-01 19:45] LABS: Add Manual Diff / Slide Review NO; Basophils Absolute Auto 100 /uL (0-100); Basophils Percent Auto 0.9 % (0-2); Eosinophils Absolute Auto 200 /uL (0-450); Eosinophils Percent Auto 2.5 % (2-4); Hematocrit 37.1 % (41-53); Hemoglobin 12.7 g/dL (13.5-17.5); Lymphocytes Absolute Auto 1500 /uL (1100-4500); Lymphocytes Percent Auto 18.1 % (25-40); Mean Corpuscular HGB Conc 34.3 % (30-36); Mean Corpuscular Hemoglobin 28.7 PG (26-34); Mean Corpuscular Volume 83.6 fL (80-100); Monocytes Absolute Auto 500 /uL (0-900); Monocytes Percent Auto 5.9 % (3-14); Neutrophils Absolute Auto 6200 /uL (1500-7000); Neutrophils Percent Auto 72.6 % (50-75); Platelet Count 248 X10^3/uL (150-400); Red Blood Cell Count 4.43 X10^6/uL (4.5-5.9); Red Cell Distribution Width 15.9 % (11.6-14.8); White Blood Cell Count 8.5 X10^3/uL (4.5-11.0)
[2022-04-01 19:48] LABS: INR 1.1 (0.9-1.3); Prothrombin Time 12.3 SECONDS (10.1-12.7)
[2022-04-01 19:51] LABS: PTT Partial Thromboplastin Tim 30 SECONDS (26-36)
[2022-04-01 19:53] LABS: Alanine Aminotransferase 13 IU/L (<50); Albumin 3.7 g/dL (3.5-5.0); Albumin Globulin Ratio 1.1 (1.0-2.8); Alkaline Phosphatase 95 U/L (38-126); Aspartate Aminotransferase 28 IU/L (17-59); BUN Creatinine Ratio 17.4 (6-22); Bilirubin Total 0.6 mg/dL (0.2-1.3); Blood Urea Nitrogen 16 mg/dL (9-20); Calcium 8.4 mg/dL (8.4-10.2); Carbon Dioxide 24 mmol/L (22-32); Chloride 107 mmol/L (98-107); Creatine Kinase 120 U/L (55-170); Estimated Glomerular Filt Rate > 60 mL/min (>60); Ethanol (ETOH) < 10 mg/dL; Globulin 3.3 g/dL (1.7-4.1); Glucose 96 mg/dL (80-110); HEMOLYSIS < 15 (0-50); Lipase 91 U/L (23-300); Potassium 3.9 mmol/L (3.4-5.1); Sodium 141 mmol/L (137-145)
[2022-04-01 20:04] LABS: Troponin I < 0.012 ng/mL (0.01-0.034)
[2022-04-01 20:08] LABS: CKMB % Relative Index 2.2 % (1.5-5.0)
--- NOTE | 2022-04-01 21:27 | DI.RAD.S_ITS ---
PROCEDURE: XR WRIST RT MIN 3V INDICATIONS: Fall, Pain TECHNIQUE: 4 views of the wrist were acquired. COMPARISON: None. FINDINGS: Bones: No fractures or dislocations. No suspicious bony lesions. Scaphoid view: The scaphoid appears intact. Soft tissues: No suspicious soft tissue calcifications. IMPRESSION: 1. No fracture or dislocation. Dictated by: Sam Corrales M.D. on 04/01/2022 at 23:43 Approved by: Sam Corrales M.D. on 04/01/2022 at 23:43
[2022-04-01] MEDS: LIDOCAINE/PRILOCAINE 5 GM TOP (22:32)
[2022-04-01] MEDS: MORPHINE 2 MG/ML INJ IV (22:32)
--- NOTE | 2022-04-01 23:14 | PC.NURSE ---
Pt attempted to use urinal to provide sample, pt able to urinate small amount, not enough for sample. Pt educated on order for sample.
[2022-04-02] VITALS (21 sets, daily range): BP systolic 118–144; BP diastolic 59–91; PULSE 51–74; RESP 18–43; O2SAT 93–99
[2022-04-02 01:34] LABS: Ur Creatinine Normal (Normal); Ur Specific Gravity Normal (Normal); Urine pH Normal (Normal)
[2022-04-02 01:35] LABS: Urine Tetrahydrocannabinol Positive (Negative)
[2022-04-02 01:36] LABS: UR Morphine/Opiate cutoff 300 Positive (Negative); Urine Amphetamines Negative (Negative); Urine Barbiturates Negative (Negative); Urine Benzodiazepines Negative (Negative); Urine Cocaine Negative (Negative); Urine MDMA Negative (Negative); Urine Methadone Negative (Negative); Urine Methamphetamines Negative (Negative); Urine Oxycodone Negative (Negative); Urine Phencyclidine Negative (Negative); Urine Tricyclic Antidepressant Negative (Negative)
--- NOTE | 2022-04-02 02:50 | PC.NURSE ---
Dr banks in doing wound cleaning and suturing to facial lac.
[2022-04-02] MEDS: LIDOCAINE 2% INJ SDV 5 ML (02:58)
[2022-04-02] MEDS: cephALEXin 250 MG CAPSULE 500 MG PO (03:09)
== END 2022-04-02 07:07 | disposition home or self-care (01) ==
PROVIDERS: Emergency Provider Emergency Medicine
DX: S09.90XA Unspecified injury of head, initial encounter (principal); S01.81XA Laceration without foreign body of other part of head, initial encounter; M25.531 Pain in right wrist; W19.XXXA Unspecified fall, initial encounter
CPT/HCPCS: 36415; 70450; 71045; 72125; 73110; 80053; 80305; 80320; 82550; 82553; 83690; 84484; 85025; 85610; 85730; 86850; 86900; 86901; 93005; 96374; 99284; 99285; J2270

== ENCOUNTER 2022-06-23 08:06 | Emergency (ER) | payer MEDICARE, MEDICAID, SELFPAY ==
[2022-06-23] VITALS (10 sets, daily range): BP systolic 128–166; BP diastolic 60–73; PULSE 60–75; RESP 18–39; TEMP 36.8; O2SAT 97–100
--- NOTE | 2022-06-23 08:20 | DI.RAD.S_ITS ---
PROCEDURE: XR CHEST 1V INDICATIONS: chest pain TECHNIQUE: One view of the chest was acquired. COMPARISON: [facility], CT, CT ANGIO CHEST ABDOMEN PELVIS, 02/28/2022, 13:28. [facility], CR, XR CHEST 1 VIEW, 02/28/2022, 9:43. [facility], CR, XR CHEST 1V, 04/01/2022, 19:46. FINDINGS: Surgical changes and devices: None. Lungs and pleura: Lungs are clear. No pleural effusions or pneumothorax. Mediastinum: Mediastinal contours appear normal. Heart size is normal. Bones and chest wall: No suspicious bony lesions. Overlying soft tissues appear unremarkable. IMPRESSION: No acute pulmonary process. Dictated by: Lois Sierra M.D. on 06/23/2022 at 8:49 Approved by: Lois Sierra M.D. on 06/23/2022 at 8:51
[2022-06-23 08:46] LABS: Add Manual Diff / Slide Review NO; Basophils Absolute Auto 100 /uL (0-100); Eosinophils Absolute Auto 700 /uL (0-450); Eosinophils Percent Auto 10.4 % (2-4); Hematocrit 39.6 % (41-53); Hemoglobin 13.3 g/dL (13.5-17.5); Lymphocytes Absolute Auto 2000 /uL (1100-4500); Lymphocytes Percent Auto 30.8 % (25-40); Mean Corpuscular HGB Conc 33.6 % (30-36); Mean Corpuscular Hemoglobin 29.1 PG (26-34); Mean Corpuscular Volume 86.5 fL (80-100); Monocytes Absolute Auto 400 /uL (0-900); Monocytes Percent Auto 6.9 % (3-14); Neutrophils Absolute Auto 3300 /uL (1500-7000); Neutrophils Percent Auto 50.9 % (50-75); Platelet Count 293 X10^3/uL (150-400); Red Blood Cell Count 4.58 X10^6/uL (4.5-5.9); Red Cell Distribution Width 14.4 % (11.6-14.8); White Blood Cell Count 6.5 X10^3/uL (4.5-11.0)
[2022-06-23] MEDS: ASPIRIN 81 MG CHEW TAB 324 MG PO (08:47)
[2022-06-23 08:53] LABS: Prothrombin Time 11.9 SECONDS (10.1-12.7)
[2022-06-23 08:56] LABS: PTT Partial Thromboplastin Tim 33 SECONDS (26-36)
[2022-06-23 09:02] LABS: Alanine Aminotransferase 21 IU/L (<50); Albumin 3.9 g/dL (3.5-5.0); Albumin Globulin Ratio 1.2 (1.0-2.8); Alkaline Phosphatase 99 U/L (38-126); Aspartate Aminotransferase 32 IU/L (17-59); BUN Creatinine Ratio 20.8 (6-22); Bilirubin Total 0.6 mg/dL (0.2-1.3); Blood Urea Nitrogen 21 mg/dL (9-20); Calcium 8.3 mg/dL (8.4-10.2); Carbon Dioxide 25 mmol/L (22-32); Chloride 108 mmol/L (98-107); Creatine Kinase 174 U/L (55-170); Estimated Glomerular Filt Rate > 60 mL/min (>60); Globulin 3.2 g/dL (1.7-4.1); Glucose 91 mg/dL (80-110); HEMOLYSIS < 15 (0-50); Lipase 139 U/L (23-300); Potassium 4.6 mmol/L (3.4-5.1); Sodium 140 mmol/L (137-145); Total Protein 7.1 g/dL (6.3-8.2)
--- NOTE | 2022-06-23 09:04 | ED.CHESTPAIN ---
HPI - Chest Pain General Chief Complaint: Chest Pain Stated Complaint: Difficulty breathing, CP Time Seen by Provider: 06/23/22 08:10 Source: patient and EMS Mode of arrival: EMS Limitations: no limitations Limitations: language barrier History of Present Illness HPI narrative: The patient arrives by EMS with complaints of chest pain for 3 days. He is difficult to understand. He is mumbling. He indicates left-sided chest pain for 3 days. He is had some cough. He apparently had a headache. It is unclear if he has dyspnea, he has no dyspnea now. He is unsure fever chills. He is a history of substance abuse. He says he is not currently abusing alcohol or drugs. He is complaining of being cold. He denies abdominal pain, no nausea or vomiting. Was apparently trying to fix breakfast w when he decided come to the ER. He lives locally with a partner. He takes care of himself at home. Related Data Home Medications Medication Instructions Recorded Confirmed aspirin 81 mg chewable tablet 81 mg PO DAILY 11/19/17 03/15/18 benztropine 0.5 mg tablet 0.5 mg PO TID 11/19/17 03/15/18 fluoxetine 60 mg tablet 60 mg PO DAILY 11/19/17 03/15/18 hydroxyzine pamoate 25 mg capsule 25 mg PO TID PRN Anxiety 11/19/17 03/15/18 levetiracetam 500 mg tablet 500 mg PO Q12H 11/19/17 03/15/18 risperidone 2 mg tablet 4 mg PO DAILY 11/19/17 03/15/18 Previous Rx's Medication Instructions Recorded meclizine 25 mg tablet 25 mg PO BID PRN vertigo #10 tabs 11/19/17 cephalexin 500 mg capsule 500 mg PO BID #10 caps 04/02/22 Allergies Allergy/AdvReac Type Severity Reaction Status Date / Time No Known Drug Allergies Allergy Verified 12/02/21 20:02 Review of Systems Review of Systems Narrative: Limited to data in HPI, due to the patient's very limited responses. Patient History Medical History Anemia Epilepsy Psychoactive substance abuse Schizophrenia Tobacco abuse Surgical History No significant past surgical history No significant past surgical history Social History household members: none lives independently: Yes occupational status: unemployed Smoking Status: Current some day smoker alcohol intake: never substance use type: does not use Smoking Status: Current some day smoker tobacco type: cigarettes alcohol intake frequency: 0-2 drinks per day Substance Use Type: does not use Exam Initial Vital Signs Initial Vital Signs: Vital Signs Temperature 98.3 F 06/23/22 08:25 Pulse Rate 61 06/23/22 08:25 Respiratory Rate 18 06/23/22 08:25 Blood Pressure 158/71 H 06/23/22 08:25 Pulse Oximetry 98 06/23/22 08:25 Oxygen Delivery Method 06/23/22 08:25 Const Other: Awake, but seems drowsy. Mumbling. He is oriented to person and place. He gave limited history, he seems to be under the influence. HENMT Head: normal to inspection, normocephalic and atraumatic Mouth: oral mucosae normal Throat: posterior oropharynx normal Eyes General: Yes appearance normal, both eyes and all related structures Sclera: sclerae normal Cornea: corneas normal Pupils: PERRL EOM: EOM intact bilaterally and No nystagmus Neck Neck: No lymphadenopathy and No JVD Chest Other: Reproducible tenderness in the upper, central chest. Resp Effort & Inspection: normal respiratory effort Auscultation: clear to auscultation bilaterally Cardio Rate: regular rate Rhythm: regular rhythm Heart Sounds: S2 normal, no gallops and no murmurs GI Inspection: normal to inspection Palpation: soft, No mass and No tender Auscultation: normal bowel sounds Back/Spine/Pelvis Back: normal to inspection and No back tenderness Thoracic/Lumbar Spine: thoracic and lumbar spine normal to inspection Skin General: no rashes or lesions noted Neuro General: patient alert, patient awake, oriented (Person in place) and no focal motor deficits Cranial Nerves: No nystagmus Extrem General: normal to inspection, full ROM, no pedal edema and no calf tenderness Psych Other: Altered as noted in HPI, and initial exam. Course Orders Ordered: ED Orders 06/23/22 08:20 XR chest 1V Stat Covid-19 + FLU A/B + RSV - PCR Stat D Dimer Stat ETOH [Ethanol (ETOH)] Stat EKG-12 Lead Stat 06/23/22 08:30 Complete Blood Count AUTO DIFF Stat Comprehensive Metabolic Panel Stat Lipase Stat Magnesium Stat Partial Thromboplastin Time Stat Prothrombin Time INR Stat Troponin & CK Cardiac Panel Stat 06/23/22 10:40 Trop I [Troponin I] Stat 06/23/22 11:20 Urine Drug Screen, Rapid Stat 06/23/22 12:43 CT angio chest PE protocol Stat Sodium Chloride (Normal Saline 0.9%) 1,000 mls @ 250 mls/hr IV CONT RITA Discontinued Medications Acetaminophen (Acetaminophen 325 Mg Tablet) 650 mg PO NOW ONE Stop: 06/23/22 09:03 Last Admin: 06/23/22 09:09 Dose: 650 mg Documented By: ESTHELA Aspirin (Aspirin 81 Mg Chew Tab) 324 mg PO NOW ONE Stop: 06/23/22 08:21 Last Admin: 06/23/22 08:47 Dose: 324 mg Documented By: ARCHANA Vital Signs Vital signs: Vital Signs - 8 hr 06/23/22 08:25 06/23/22 10:45 06/23/22 10:47 Temperature 98.3 F Pulse Rate 61 75 74 Respiratory Rate 18 36 H 23 Blood Pressure 158/71 H Pulse Oximetry 98 98 98 Oxygen Delivery Method Room Air 06/23/22 10:47 06/23/22 11:00 06/23/22 11:00 Temperature Pulse Rate 75 Respiratory Rate 39 H Blood Pressure 133/64 128/60 Pulse Oximetry 97 Oxygen Delivery Method MDM - Chest Pain Lab Data Result diagrams: 06/23/22 08:30 06/23/22 08:30 Labs: Lab Results 06/23/22 06/23/22 06/23/22 Range/Units 08:20 08:20 08:20 WBC (4.5-11.0) X10^3/uL RBC (4.5-5.9) X10^6/uL Hgb (13.5-17.5) g/dL Hct (41-53) % MCV (80-100) fL MCH (26-34) PG MCHC (30-36) % RDW (11.6-14.8) % Plt Count (150-400) X10^3/uL Neut % (Auto) (50-75) % Lymph % (Auto) (25-40) % [place] % (Auto) (3-14) % Eos % (Auto) (2-4) % Baso % (Auto) (0-2) % Neut # (Auto) (9626-7814) /uL Lymph # (Auto) (2083-1738) /uL [place] # (Auto) (0-900) /uL Eos # (Auto) (0-450) /uL Baso # (Auto) (0-100) /uL PT (10.1-12.7) SECONDS INR (0.9-1.3) APTT (26-36) SECONDS D-Dimer 530 H (<500) ng/ml Sodium (137-145) mmol/L Potassium (3.4-5.1) mmol/L Chloride (98-107) mmol/L Carbon Dioxide (22-32) mmol/L BUN (9-20) mg/dL Creatinine (0.66-1.25) mg/dL Estimated GFR (>60) mL/min BUN/Creatinine Ratio (6-22) Glucose (80-110) mg/dL Calcium (8.4-10.2) mg/dL Magnesium (1.6-2.3) mg/dL Total Bilirubin (0.2-1.3) mg/dL AST (17-59) IU/L ALT (<50) IU/L Alkaline Phosphatase (38-126) U/L Total Creatine Kinase (55-170) U/L CK-MB (CK-2) (<2.37) ng/mL CK-MB (CK-2) Rel Index (1.5-5.0) % Troponin I (0.01-0.034) ng/mL Total Protein (6.3-8.2) g/dL Albumin (3.5-5.0) g/dL Globulin (1.7-4.1) g/dL Albumin/Globulin Ratio (1.0-2.8) Lipase (23-300) U/L U Opiates 300ng/mL cut (Negative) Ur Oxycodone Screen (Negative) Urine Methadone Screen (Negative) Ur Barbiturates Screen (Negative) U Tricyclic Antidepress (Negative) Ur Phencyclidine Scrn (Negative) Ur Amphetamines Screen (Negative) U Methamphetamines Scrn (Negative) Ur MDMA Scrn (Ecstasy) (Negative) U Benzodiazepines Scrn (Negative) Urine Cocaine Screen (Negative) U Marijuana (THC) Screen (Negative) Ethyl Alcohol < 10 ( - 10) mg/dL SARS-CoV-2 (PCR) Negative (Negative) Influenza A (RT-PCR) Flu a negative (NEGATIVE) Influenza B (RT-PCR) Flu b negative (NEGATIVE) RSV (PCR) Negative (Negative) 06/23/22 06/23/22 06/23/22 Range/Units 08:30 08:30 08:30 WBC 6.5 (4.5-11.0) X10^3/uL RBC 4.58 (4.5-5.9) X10^6/uL Hgb 13.3 L (13.5-17.5) g/dL Hct 39.6 L (41-53) % MCV 86.5 (80-100) fL MCH 29.1 (26-34) PG MCHC 33.6 (30-36) % RDW 14.4 (11.6-14.8) % Plt Count 293 (150-400) X10^3/uL Neut % (Auto) 50.9 (50-75) % Lymph % (Auto) 30.8 (25-40) % [place] % (Auto) 6.9 (3-14) % Eos % (Auto) 10.4 H (2-4) % Baso % (Auto) 1.0 (0-2) % Neut # (Auto) 3300 (6634-5364) /uL Lymph # (Auto) 2000 (9427-6721) /uL [place] # (Auto) 400 (0-900) /uL Eos # (Auto) 700 H (0-450) /uL Baso # (Auto) 100 (0-100) /uL PT 11.9 (10.1-12.7) SECONDS INR 1.0 (0.9-1.3) APTT 33 (26-36) SECONDS D-Dimer (<500) ng/ml Sodium 140 (137-145) mmol/L Potassium 4.6 (3.4-5.1) mmol/L Chloride 108 H (98-107) mmol/L Carbon Dioxide 25 (22-32) mmol/L BUN 21 H (9-20) mg/dL Creatinine 1.01 (0.66-1.25) mg/dL Estimated GFR > 60 (>60) mL/min BUN/Creatinine Ratio 20.8 (6-22) Glucose 91 (80-110) mg/dL Calcium 8.3 L (8.4-10.2) mg/dL Magnesium 2.0 (1.6-2.3) mg/dL Total Bilirubin 0.6 (0.2-1.3) mg/dL AST 32 (17-59) IU/L ALT 21 (<50) IU/L Alkaline Phosphatase 99 (38-126) U/L Total Creatine Kinase 174 H (55-170) U/L CK-MB (CK-2) 3.77 H (<2.37) ng/mL CK-MB (CK-2) Rel Index 2.2 (1.5-5.0) % Troponin I < 0.012 (0.01-0.034) ng/mL Total Protein 7.1 (6.3-8.2) g/dL Albumin 3.9 (3.5-5.0) g/dL Globulin 3.2 (1.7-4.1) g/dL Albumin/Globulin Ratio 1.2 (1.0-2.8) Lipase 139 (23-300) U/L U Opiates 300ng/mL cut (Negative) Ur Oxycodone Screen (Negative) Urine Methadone Screen (Negative) Ur Barbiturates Screen (Negative) U Tricyclic Antidepress (Negative) Ur Phencyclidine Scrn (Negative) Ur Amphetamines Screen (Negative) U Methamphetamines Scrn (Negative) Ur MDMA Scrn (Ecstasy) (Negative) U Benzodiazepines Scrn (Negative) Urine Cocaine Screen (Negative) U Marijuana (THC) Screen (Negative) Ethyl Alcohol ( - 10) mg/dL SARS-CoV-2 (PCR) (Negative) Influenza A (RT-PCR) (NEGATIVE) Influenza B (RT-PCR) (NEGATIVE) RSV (PCR) (Negative) 06/23/22 06/23/22 Range/Units 10:40 11:20 WBC (4.5-11.0) X10^3/uL RBC (4.5-5.9) X10^6/uL Hgb (13.5-17.5) g/dL Hct (41-53) % MCV (80-100) fL MCH (26-34) PG MCHC (30-36) % RDW (11.6-14.8) % Plt Count (150-400) X10^3/uL Neut % (Auto) (50-75) % Lymph % (Auto) (25-40) % [place] % (Auto) (3-14) % Eos % (Auto) (2-4) % Baso % (Auto) (0-2) % Neut # (Auto) (2537-6337) /uL Lymph # (Auto) (5481-0368) /uL [place] # (Auto) (0-900) /uL Eos # (Auto) (0-450) /uL Baso # (Auto) (0-100) /uL PT (10.1-12.7) SECONDS INR (0.9-1.3) APTT (26-36) SECONDS D-Dimer (<500) ng/ml Sodium (137-145) mmol/L Potassium (3.4-5.1) mmol/L Chloride (98-107) mmol/L Carbon Dioxide (22-32) mmol/L BUN (9-20) mg/dL Creatinine (0.66-1.25) mg/dL Estimated GFR (>60) mL/min BUN/Creatinine Ratio (6-22) Glucose (80-110) mg/dL Calcium (8.4-10.2) mg/dL Magnesium (1.6-2.3) mg/dL Total Bilirubin (0.2-1.3) mg/dL AST (17-59) IU/L ALT (<50) IU/L Alkaline Phosphatase (38-126) U/L Total Creatine Kinase (55-170) U/L CK-MB (CK-2) (<2.37) ng/mL CK-MB (CK-2) Rel Index (1.5-5.0) % Troponin I < 0.012 (0.01-0.034) ng/mL Total Protein (6.3-8.2) g/dL Albumin (3.5-5.0) g/dL Globulin (1.7-4.1) g/dL Albumin/Globulin Ratio (1.0-2.8) Lipase (23-300) U/L U Opiates 300ng/mL cut Negative (Negative) Ur Oxycodone Screen Negative (Negative) Urine Methadone Screen Negative (Negative) Ur Barbiturates Screen Negative (Negative) U Tricyclic Antidepress Negative (Negative) Ur Phencyclidine Scrn Negative (Negative) Ur Amphetamines Screen Negative (Negative) U Methamphetamines Scrn Positive H (Negative) Ur MDMA Scrn (Ecstasy) Negative (Negative) U Benzodiazepines Scrn Negative (Negative) Urine Cocaine Screen Negative (Negative) U Marijuana (THC) Screen Positive H (Negative) Ethyl Alcohol ( - 10) mg/dL SARS-CoV-2 (PCR) (Negative) Influenza A (RT-PCR) (NEGATIVE) Influenza B (RT-PCR) (NEGATIVE) RSV (PCR) (Negative) Imaging Data Chest x-ray: Radiologist's Impression: No acute process. Chest CTA: Radiologist's Impression: Lungs are clear. No PE. ECG Data Attestation: I personally reviewed and interpreted this ECG as follows: (Normal sinus rhythm rate 60 beats per minute. Normal intervals. No ectopy. No acute ST T wave changes. Normal study.) Discharge Plan Departure Patient Disposition: Home Clinical Impression: Atypical chest pain, Methamphetamine abuse Instructions: DI for Atypical Chest Pain, Methamphetamine Activity Restrictions/Additional Instructions: There is no suggestion of heart attack, blood clots, pneumonia, or significant infection. You have rib pain. I recommend Tylenol every 4 hours. Labs also indicates using methamphetamine. I strongly recommend you avoid drug use. This is likely contributing to your current symptoms. Return here as needed. Prescriptions: No Action hydroxyzine pamoate 25 mg Capsule 25 mg PO TID PRN (Reason: Anxiety) risperidone 2 mg Tablet 4 mg PO DAILY fluoxetine 60 mg Tablet 60 mg PO DAILY benztropine 0.5 mg Tablet 0.5 mg PO TID levetiracetam 500 mg Tablet 500 mg PO Q12H aspirin 81 mg Tablet,Chewable 81 mg PO DAILY meclizine 25 mg tablet 25 mg PO BID PRN (Reason: vertigo) Qty: 10 0RF cephalexin 500 mg capsule 500 mg PO BID Qty: 10 0RF
[2022-06-23] MEDS: ACETAMINOPHEN 325 MG TABLET 650 MG PO (09:09)
[2022-06-23 09:14] LABS: Troponin I < 0.012 ng/mL (0.01-0.034)
[2022-06-23 09:17] LABS: CKMB % Relative Index 2.2 % (1.5-5.0); Creatine Kinase MB 3.77 ng/mL (<2.37)
[2022-06-23 09:23] LABS: D Dimer 530 ng/ml (<500)
[2022-06-23 09:26] LABS: Ethanol (ETOH) < 10 mg/dL
[2022-06-23 10:36] LABS: Influenza A - CEPHEID Flu A NEGATIVE (NEGATIVE); Influenza B - CEPHEID Flu B NEGATIVE (NEGATIVE); Respiratory Syncytial Virus Negative (Negative)
[2022-06-23 10:59] LABS: COVID-19 CEPHEID 4-PLEX PCR Negative (Negative)
[2022-06-23 11:34] LABS: Troponin I < 0.012 ng/mL (0.01-0.034)
--- NOTE | 2022-06-23 12:43 | DI.CT.S_ITS ---
PROCEDURE: CT ANGIO CHEST PE PROTOCOL INDICATIONS: Atypical chest pain. Elevated D-dimer. TECHNIQUE: After the administration of intravenous contrast, 2 mm thick sections acquired from the pulmonary apices to the posterior costophrenic angles. 3-dimensional maximum intensity projection (MIP) coronal and sagittal reformats were then acquired through the thorax. For radiation dose reduction, the following was used: automated exposure control, adjustment of mA and/or kV according to patient size. COMPARISON: [facility], CT, CT ANGIO CHEST ABDOMEN PELVIS, 02/28/2022, 13:28. FINDINGS: Image quality: Excellent. Pulmonary arteries: Pulmonary arteries are normal in size, and demonstrate no intraluminal filling defects to suggest central pulmonary embolism. Lungs and pleura: Lungs are clear. No pleural effusions or pneumothorax. Central and peripheral airways are patent. Mediastinum: Heart size is normal, without pericardial effusion. No mediastinal or hilar adenopathy. Thoracic aorta is normal in caliber and enhancement. Esophagus is normal in caliber, without hiatal hernia. Bones and chest wall: No suspicious bony lesions. Ribs and thoracic spine appear intact throughout. Thyroid gland is unremarkable. No axillary or supraclavicular adenopathy. Abdomen: Visualized upper abdominal solid organs appear normal in the early arterial phase of enhancement. IMPRESSION: Lungs are clear. No pulmonary embolism. Dictated by: Lois Sierra M.D. on 06/23/2022 at 13:21 Approved by: Lois Sierra M.D. on 06/23/2022 at 13:22
[2022-06-23 12:50] LABS: Ur Creatinine Normal (Normal); Ur Specific Gravity Normal (Normal); Urine pH Normal (Normal)
[2022-06-23 12:51] LABS: UR Morphine/Opiate cutoff 300 Negative (Negative); Urine Amphetamines Negative (Negative); Urine Barbiturates Negative (Negative); Urine Benzodiazepines Negative (Negative); Urine Cocaine Negative (Negative); Urine MDMA Negative (Negative); Urine Methadone Negative (Negative); Urine Methamphetamines Positive (Negative); Urine Oxycodone Negative (Negative); Urine Phencyclidine Negative (Negative); Urine Tetrahydrocannabinol Positive (Negative); Urine Tricyclic Antidepressant Negative (Negative)
== END 2022-06-23 13:58 | disposition home or self-care (01) ==
PROVIDERS: Emergency Provider Emergency Medicine
DX: R07.89 Other chest pain (principal); F15.10 Other stimulant abuse, uncomplicated; R05.9 Cough, unspecified; Z79.899 Other long term (current) drug therapy; Z20.822 Contact with and (suspected) exposure to COVID-19
CPT/HCPCS: 0241U; 36415; 71045; 71275; 80053; 80305; 80320; 82550; 82553; 83690; 83735; 84484; 85025; 85379; 85610; 85730; 93005; 93010; 99284; Q9967

== ENCOUNTER 2022-08-10 06:55 | Emergency (ER) | payer MEDICARE, MEDICAID, SELFPAY ==
[2022-08-10] VITALS (12 sets, daily range): BP systolic 130–168; BP diastolic 63–92; PULSE 54–76; RESP 16–35; TEMP 36.9; O2SAT 99–100
--- NOTE | 2022-08-10 07:07 | DI.RAD.S_ITS ---
PROCEDURE: XR PELVIS 1-2V INDICATIONS: Fall/injury TECHNIQUE: 1 view(s) of the pelvis acquired. COMPARISON: None. FINDINGS: Bones: No fractures or dislocations. No suspicious bony lesions. Soft tissues: Visualized bowel gas pattern is normal. No suspicious soft tissue calcifications. IMPRESSION: No fracture demonstrated. Dictated by: Black Corea M.D. on 08/10/2022 at 8:11 Approved by: Black Corea M.D. on 08/10/2022 at 8:12
--- NOTE | 2022-08-10 07:07 | DI.CT.S_ITS ---
PROCEDURE: CT ANGIO HEAD AND NECK INDICATIONS: Altered mental status TECHNIQUE: Pre-contrast 4.5 mm thick sections acquired from the foramen magnum to the vertex. After the administration of intravenous contrast, 1 mm thick sections acquired from the aortic arch through the [place] of [place]. Post-contrast 4.5 mm thick sections then re-acquired from the foramen magnum to the vertex. 3-dimensional [id number] (MIP) and/or volume rendering reformats were acquired of the central intracranial vasculature and neck separately. For radiation dose reduction, the following was used: automated exposure control, adjustment of mA and/or kV according to patient size. COMPARISON: None. FINDINGS: Image quality: Excellent. BRAIN: CSF spaces: Ventricles are normal in size and shape. Basal cisterns are patent. No extra-axial fluid collections. Brain: No midline shift. No intracranial bleeds or masses. [place]-white matter interface appears intact. Skull and face: Calvarium and facial bones appear intact, without suspicious lesions. Orbits appear normal. Sinuses: Sinuses and mastoids are clear. HEAD CT ANGIOGRAPHY: Anterior circulation: Intracranial internal carotid arteries are normal in size and flow. The flow within the paired anterior cerebral arteries is normal and symmetric. The flow within the middle cerebral arteries is normal and symmetric. The anterior communicating artery is seen. No aneurysms are seen. Posterior circulation: Visualized portions of the vertebral arteries demonstrate normal caliber, and join to form a normal appearing basilar artery. Flow within the posterior cerebral arteries is normal and symmetric. No aneurysms are seen. NECK CT ANGIOGRAPHY: Carotid system: The great vessels demonstrate a conventional anatomy as they arise from the aortic arch. The origins of the common carotid arteries appear patent. The common carotid arteries demonstrate normal caliber and courses. The bifurcation regions are both widely patent. The internal carotid arteries demonstrate very mild proximal disease, with otherwise normal calibers and courses. Posterior circulation: The origins of the vertebral arteries both appear widely patent. The more superior extracranial portions of both vertebral arteries also demonstrate normal courses and calibers. They join to form a normal appearing basilar artery. Additional: Note is made of a 40% proximal left subclavian artery stenosis secondary to soft plaque. Soft tissues: Visualized neck soft tissues demonstrate no suspicious abnormalities. Biapical emphysematous change. Bones: No suspicious bony lesions. Visualized cervical spine appears normally aligned. Severe cervical spondylosis. IMPRESSION: 1. No evidence of acute intracranial process. 2. Unremarkable CTA head. No stenosis, aneurysm, occlusion, or focal filling defect. 3. No significant carotid stenosis. 40% proximal left subclavian artery stenosis with soft plaque. Any quantitative measurements of stenosis were performed using NASCET criteria. Dictated by: Jimi Colunga M.D. on 08/10/2022 at 8:06 Approved by: Jimi Colunga M.D. on 08/10/2022 at 8:11
--- NOTE | 2022-08-10 07:08 | DI.RAD.S_ITS ---
PROCEDURE: XR CHEST 1V INDICATIONS: Altered mental status TECHNIQUE: One view of the chest was acquired. COMPARISON: [facility], CT, CT ANGIO HEAD AND NECK, 08/10/2022, 7:23. [facility], CR, XR CHEST 1V, 06/23/2022, 8:19. FINDINGS: Surgical changes and devices: None. Lungs and pleura: Lungs appear clear. Emphysematous change. No pleural effusions or pneumothorax. Mediastinum: Mediastinal contours appear unchanged. Heart size is normal. Bones and chest wall: No suspicious bony lesions. Overlying soft tissues appear unremarkable. IMPRESSION: No acute cardiopulmonary abnormality. Dictated by: Black Corea M.D. on 08/10/2022 at 8:07 Approved by: Black Corea M.D. on 08/10/2022 at 8:09
--- NOTE | 2022-08-10 07:08 | DI.CT.S_ITS ---
PROCEDURE: CT CERVICAL SPINE WO CON INDICATIONS: Altered mental status TECHNIQUE: Noncontrast 3 mm thick sections acquired from the skull base to the T4 level. Sagittal and coronal reformats were then constructed. For radiation dose reduction, the following was used: automated exposure control, adjustment of mA and/or kV according to patient size. COMPARISON: [facility], CT, CT CERVICAL SPINE WO CON, 04/01/2022, 19:40. FINDINGS: Image quality: Excellent. Bones: No fractures or dislocations. Visualized superior ribs are intact. Severe cervical spondylitic change. Multilevel disc height loss. Multilevel uncovertebral joint hypertrophy with significant multilevel foraminal narrowing. There is multilevel facet arthropathy. Soft tissues: Prevertebral soft tissues are normal in thickness. No paravertebral hematomas. No apical pneumothoraces. Biapical emphysematous change. IMPRESSION: 1. No evidence of acute cervical fracture or dislocation. 2. Severe cervical spondylosis. 3. COPD. Dictated by: Jimi Colunga M.D. on 08/10/2022 at 8:05 Approved by: Jimi Colunga M.D. on 08/10/2022 at 8:06
--- NOTE | 2022-08-10 07:11 | ED_ITS ---
HPI - Altered Mental Status General Chief Complaint: Altered Mental Status Stated Complaint: Decreased LOC Time Seen by Provider: 08/10/22 07:06 History of Present Illness HPI narrative: Patient with history of epilepsy schizophrenia and substance abuse, brought in by ambulance from home. Blood sugar 97. Patient is very difficult to understand. EMS states he lives alone and as far as they know he is full code. Evidently, medical alarm was pressed by patient from his home. He is able to indicate that his head hurts and that is why he activated EMS. Otherwise, it is very difficult to obtain history from patient, he nods or says yes to essentially every question. No known if recent illness. Possible fall. Patient has history of frequent visits here for falls and altered mental status and seizures. EMS states that they have come to his residence before and he is usually functional and talking and interactive but this is different this morning. Related Data Home Medications Medication Instructions Recorded Confirmed [BPH MED] ##0 11/29/16 [HTN MED] ##0 11/29/16 aspirin,buffered (calcium 325 mg PO ##0 11/29/16 carbonate-magnesium) 325 mg tablet (Bufferin) aspirin 81 mg chewable tablet 81 mg PO DAILY 11/19/17 03/15/18 benztropine 0.5 mg tablet 0.5 mg PO TID 11/19/17 03/15/18 fluoxetine 60 mg tablet 60 mg PO DAILY 11/19/17 03/15/18 hydroxyzine pamoate 25 mg capsule 25 mg PO TID PRN Anxiety 11/19/17 03/15/18 levetiracetam 500 mg tablet 500 mg PO Q12H 11/19/17 03/15/18 risperidone 2 mg tablet 4 mg PO DAILY 11/19/17 03/15/18 Previous Rx's Medication Instructions Recorded meclizine 25 mg tablet 25 mg PO BID PRN vertigo #10 tabs 11/19/17 cephalexin 500 mg capsule 500 mg PO BID #10 caps 04/02/22 levetiracetam 500 mg tablet 500 mg PO BID #60 tabs 08/10/22 Allergies Allergy/AdvReac Type Severity Reaction Status Date / Time hydrocodone [HYDROCODONE] Allergy Unknown Unverified 08/10/22 07:14 Sulfa (Sulfonamide Allergy Unknown Unverified 08/10/22 07:14 Antibiotics) [SULFA (SULFONAMIDE ANTIBIOTICS)] Review of Systems Review of Systems ROS Unobtainable: Unobtainable due to mental status/LOC Patient History Medical History (Updated 08/10/22 @ 10:16 by Robert Lopez MD) Anemia Epilepsy Psychoactive substance abuse Schizophrenia Tobacco abuse Surgical History (Updated 08/10/22 @ 07:14 by Lady Shante Núñez) No significant past surgical history No significant past surgical history Social History (System 08/10/22 @ 07:14 by Lady Shante Núñez) household members: none lives independently: Yes occupational status: unemployed Smoking Status: Current some day smoker alcohol intake: never substance use type: does not use Smoking Status: Current some day smoker tobacco type: cigarettes alcohol intake frequency: 0-2 drinks per day Substance Use Type: does not use Exam Narrative Exam Narrative: GENERAL: in no distress, not toxic not dyspneic HEAD: Normocephalic. No bruising to the scalp or face, nontender scalp. EYES: Pupils equal round ENT: Mucous membranes moist. NECK: Trachea midline. CARDIOVASCULAR: Regular rate and rhythm without murmurs RESPIRATORY: Clear to auscultation. Breath sounds equal bilaterally. No wheezes, rales, or rhonchi. GASTROINTESTINAL: Abdomen soft, non-tender EXTREMITIES: No gross deformities. Nontender bilateral shoulders elbows wrists pelvis hips knees and ankles. No shortening or rotation of the legs BACK: No flank tenderness. NEURO: Patient is able to only whisper. At times does follow instructions but very difficult to ascertain orientation. 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 Able to flex and extend each leg SKIN: Warm and dry PSYCH: Appears slightly anxious, is cooperative, not combative Initial Vital Signs Initial Vital Signs: Vital Signs Temperature 98.4 F 08/10/22 07:02 Pulse Rate 76 08/10/22 07:02 Respiratory Rate 16 08/10/22 07:02 Blood Pressure 167/75 H 08/10/22 07:02 Pulse Oximetry 100 08/10/22 07:02 Oxygen Delivery Method 08/10/22 07:02 Course Orders Ordered: ED Orders 08/10/22 07:05 Acetaminophen Stat Complete Blood Count AUTO DIFF Stat Comprehensive Metabolic Panel Stat Ethanol (ETOH) Stat Lactate (Lactic Acid) Stat Partial Thromboplastin Time Stat Procalcitonin Stat Prolactin Stat Prothrombin Time INR Stat Thyroid Stimulating Hormone Stat Troponin & CK Cardiac Panel Stat 08/10/22 07:07 CT angio head and neck Stat XR pelvis 1-2V Stat EKG-12 Lead Stat 08/10/22 07:08 CT cervical spine wo con Stat XR chest 1V Stat 08/10/22 07:40 Ammonia (NH3) Stat 08/10/22 08:13 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) Stat 08/10/22 09:14 Urine Drug Screen, Rapid Stat Discontinued Medications Levetiracetam (Levetiracetam 250 Mg Tablet) 500 mg PO NOW ONE Stop: 08/10/22 10:12 Last Admin: 08/10/22 10:24 Dose: 500 mg Documented By: CTS Vital Signs Vital signs: Vital Signs - 8 hr 08/10/22 07:02 08/10/22 07:03 08/10/22 07:04 Temperature 98.4 F Pulse Rate 76 66 67 Respiratory Rate 16 Blood Pressure 167/75 H Pulse Oximetry 100 100 100 Oxygen Delivery Method Room Air 08/10/22 07:04 08/10/22 07:37 08/10/22 07:38 Temperature Pulse Rate 57 L 60 Respiratory Rate 20 Blood Pressure 159/80 H Pulse Oximetry 100 100 Oxygen Delivery Method 08/10/22 07:38 08/10/22 08:00 08/10/22 08:00 Temperature Pulse Rate 62 Respiratory Rate 35 H Blood Pressure 168/69 H 140/70 Pulse Oximetry 100 Oxygen Delivery Method 08/10/22 08:30 08/10/22 08:30 08/10/22 09:00 Temperature Pulse Rate 56 L Respiratory Rate 30 H Blood Pressure 142/68 H 143/92 H Pulse Oximetry 100 Oxygen Delivery Method 08/10/22 09:00 08/10/22 09:30 08/10/22 09:30 Temperature Pulse Rate 57 L 54 L Respiratory Rate 20 21 Blood Pressure 130/63 Pulse Oximetry 100 100 Oxygen Delivery Method 08/10/22 10:00 08/10/22 10:00 08/10/22 10:30 Temperature Pulse Rate 61 Respiratory Rate 25 H Blood Pressure 131/63 139/67 Pulse Oximetry 100 Oxygen Delivery Method 08/10/22 10:30 08/10/22 11:00 08/10/22 11:00 Temperature Pulse Rate 69 63 Respiratory Rate 28 H 26 H Blood Pressure 146/69 H Pulse Oximetry 100 99 Oxygen Delivery Method MDM - Altered Mental Status Lab Data 08/10/22 07:05 08/10/22 07:05 Labs: Lab Results 08/10/22 08/10/22 08/10/22 Range/Units 07:05 07:05 07:05 WBC 6.7 (4.5-11.0) X10^3/uL RBC 4.47 L (4.5-5.9) X10^6/uL Hgb 12.7 L (13.5-17.5) g/dL Hct 38.4 L (41-53) % MCV 86.0 (80-100) fL MCH 28.3 (26-34) PG MCHC 32.9 (30-36) % RDW 14.5 (11.6-14.8) % Plt Count 257 (150-400) X10^3/uL Neut % (Auto) 53.1 (50-75) % Lymph % (Auto) 31.8 (25-40) % [place] % (Auto) 7.7 (3-14) % Eos % (Auto) 6.4 H (2-4) % Baso % (Auto) 1.0 (0-2) % Neut # (Auto) 3600 (4013-2832) /uL Lymph # (Auto) 2100 (6249-8355) /uL [place] # (Auto) 500 (0-900) /uL Eos # (Auto) 400 (0-450) /uL Baso # (Auto) 100 (0-100) /uL PT 12.2 (10.1-12.7) SECONDS INR 1.1 (0.9-1.3) APTT 32 (26-36) SECONDS Sodium 140 (137-145) mmol/L Potassium 4.2 (3.4-5.1) mmol/L Chloride 107 (98-107) mmol/L Carbon Dioxide 26 (22-32) mmol/L BUN 22 H (9-20) mg/dL Creatinine 0.79 (0.66-1.25) mg/dL Estimated GFR > 60 (>60) mL/min BUN/Creatinine Ratio 27.8 H (6-22) Glucose 92 (80-110) mg/dL Lactate (0.7-2.1) mmol/L Calcium 8.2 L (8.4-10.2) mg/dL Total Bilirubin 0.7 (0.2-1.3) mg/dL AST 33 (17-59) IU/L ALT 20 (<50) IU/L Alkaline Phosphatase 88 (38-126) U/L Ammonia (9-30) umol/L Total Creatine Kinase 104 (55-170) U/L CK-MB (CK-2) 2.28 (<2.37) ng/mL CK-MB (CK-2) Rel Index 2.2 (1.5-5.0) % Troponin I < 0.012 (0.01-0.034) ng/mL Total Protein 7.1 (6.3-8.2) g/dL Albumin 3.5 (3.5-5.0) g/dL Globulin 3.6 (1.7-4.1) g/dL Albumin/Globulin Ratio 1.0 (1.0-2.8) Procalcitonin 0.07 (<0.5) ng/mL TSH (0.47-4.68) uIU/mL Prolactin 18.8 H (3.7-17.9) ng/mL U Opiates 300ng/mL cut (Negative) Ur Oxycodone Screen (Negative) Urine Methadone Screen (Negative) Acetaminophen < 10 (10-30) ug/mL Ur Barbiturates Screen (Negative) U Tricyclic Antidepress (Negative) Ur Phencyclidine Scrn (Negative) Ur Amphetamines Screen (Negative) U Methamphetamines Scrn (Negative) Ur MDMA Scrn (Ecstasy) (Negative) U Benzodiazepines Scrn (Negative) Urine Cocaine Screen (Negative) U Marijuana (THC) Screen (Negative) Ethyl Alcohol < 10 ( - 10) mg/dL SARS-CoV-2 (PCR) (Negative) 08/10/22 08/10/22 08/10/22 Range/Units 07:05 07:05 07:40 WBC (4.5-11.0) X10^3/uL RBC (4.5-5.9) X10^6/uL Hgb (13.5-17.5) g/dL Hct (41-53) % MCV (80-100) fL MCH (26-34) PG MCHC (30-36) % RDW (11.6-14.8) % Plt Count (150-400) X10^3/uL Neut % (Auto) (50-75) % Lymph % (Auto) (25-40) % [place] % (Auto) (3-14) % Eos % (Auto) (2-4) % Baso % (Auto) (0-2) % Neut # (Auto) (5370-4646) /uL Lymph # (Auto) (2802-3237) /uL [place] # (Auto) (0-900) /uL Eos # (Auto) (0-450) /uL Baso # (Auto) (0-100) /uL PT (10.1-12.7) SECONDS INR (0.9-1.3) APTT (26-36) SECONDS Sodium (137-145) mmol/L Potassium (3.4-5.1) mmol/L Chloride (98-107) mmol/L Carbon Dioxide (22-32) mmol/L BUN (9-20) mg/dL Creatinine (0.66-1.25) mg/dL Estimated GFR (>60) mL/min BUN/Creatinine Ratio (6-22) Glucose (80-110) mg/dL Lactate 0.9 (0.7-2.1) mmol/L Calcium (8.4-10.2) mg/dL Total Bilirubin (0.2-1.3) mg/dL AST (17-59) IU/L ALT (<50) IU/L Alkaline Phosphatase (38-126) U/L Ammonia < 9 L (9-30) umol/L Total Creatine Kinase (55-170) U/L CK-MB (CK-2) (<2.37) ng/mL CK-MB (CK-2) Rel Index (1.5-5.0) % Troponin I (0.01-0.034) ng/mL Total Protein (6.3-8.2) g/dL Albumin (3.5-5.0) g/dL Globulin (1.7-4.1) g/dL Albumin/Globulin Ratio (1.0-2.8) Procalcitonin (<0.5) ng/mL TSH 1.66 (0.47-4.68) uIU/mL Prolactin (3.7-17.9) ng/mL U Opiates 300ng/mL cut (Negative) Ur Oxycodone Screen (Negative) Urine Methadone Screen (Negative) Acetaminophen (10-30) ug/mL Ur Barbiturates Screen (Negative) U Tricyclic Antidepress (Negative) Ur Phencyclidine Scrn (Negative) Ur Amphetamines Screen (Negative) U Methamphetamines Scrn (Negative) Ur MDMA Scrn (Ecstasy) (Negative) U Benzodiazepines Scrn (Negative) Urine Cocaine Screen (Negative) U Marijuana (THC) Screen (Negative) Ethyl Alcohol ( - 10) mg/dL SARS-CoV-2 (PCR) (Negative) 08/10/22 08/10/22 Range/Units 08:13 09:14 WBC (4.5-11.0) X10^3/uL RBC (4.5-5.9) X10^6/uL Hgb (13.5-17.5) g/dL Hct (41-53) % MCV (80-100) fL MCH (26-34) PG MCHC (30-36) % RDW (11.6-14.8) % Plt Count (150-400) X10^3/uL Neut % (Auto) (50-75) % Lymph % (Auto) (25-40) % [place] % (Auto) (3-14) % Eos % (Auto) (2-4) % Baso % (Auto) (0-2) % Neut # (Auto) (0915-7481) /uL Lymph # (Auto) (4744-0182) /uL [place] # (Auto) (0-900) /uL Eos # (Auto) (0-450) /uL Baso # (Auto) (0-100) /uL PT (10.1-12.7) SECONDS INR (0.9-1.3) APTT (26-36) SECONDS Sodium (137-145) mmol/L Potassium (3.4-5.1) mmol/L Chloride (98-107) mmol/L Carbon Dioxide (22-32) mmol/L BUN (9-20) mg/dL Creatinine (0.66-1.25) mg/dL Estimated GFR (>60) mL/min BUN/Creatinine Ratio (6-22) Glucose (80-110) mg/dL Lactate (0.7-2.1) mmol/L Calcium (8.4-10.2) mg/dL Total Bilirubin (0.2-1.3) mg/dL AST (17-59) IU/L ALT (<50) IU/L Alkaline Phosphatase (38-126) U/L Ammonia (9-30) umol/L Total Creatine Kinase (55-170) U/L CK-MB (CK-2) (<2.37) ng/mL CK-MB (CK-2) Rel Index (1.5-5.0) % Troponin I (0.01-0.034) ng/mL Total Protein (6.3-8.2) g/dL Albumin (3.5-5.0) g/dL Globulin (1.7-4.1) g/dL Albumin/Globulin Ratio (1.0-2.8) Procalcitonin (<0.5) ng/mL TSH (0.47-4.68) uIU/mL Prolactin (3.7-17.9) ng/mL U Opiates 300ng/mL cut Negative (Negative) Ur Oxycodone Screen Negative (Negative) Urine Methadone Screen Negative (Negative) Acetaminophen (10-30) ug/mL Ur Barbiturates Screen Negative (Negative) U Tricyclic Antidepress Negative (Negative) Ur Phencyclidine Scrn Negative (Negative) Ur Amphetamines Screen Negative (Negative) U Methamphetamines Scrn Negative (Negative) Ur MDMA Scrn (Ecstasy) Negative (Negative) U Benzodiazepines Scrn Negative (Negative) Urine Cocaine Screen Negative (Negative) U Marijuana (THC) Screen Positive H (Negative) Ethyl Alcohol ( - 10) mg/dL SARS-CoV-2 (PCR) Negative (Negative) Point of Care Testing Glucose POC 92 Urine Dip Bedside Urine Glucose Negative Bedside Urine Bilirubin - Negative Bedside Urine Ketone - Negative Urine Specific [place] 1.010 Bedside Urine Occult Blood - Negative Bedside Urine pH 7.5 Bedside Urine Protein - Negative Bedside Urine Urobilinogen - Negative Bedside Urine Nitrite - Negative Bedside Urine Leukocytes - Negative Esterase Imaging Data Chest x-ray: Radiologist's Impression: [address] [address] XRay Report Signed Patient: Bart Adams V MR#: [id number] : 1950 Acct:[id number] Age/Sex: 71 / M Date of Service: 08/10/22 Loc: ED Accession Number: [id number] ?? Procedure: XR chest 1V Ordering Provider: Robert Lopez MD PROCEDURE:? XR CHEST 1V ? INDICATIONS:? Altered mental status ? TECHNIQUE:? One view of the chest was acquired.? ? COMPARISON:? [facility], CT, CT ANGIO HEAD AND NECK, 08/10/2022, 7:23.? [facility], CR, XR CHEST 1V, 06/23/2022, 8:19. ? FINDINGS:? ? Surgical changes and devices:? None.? ? Lungs and pleura:? Lungs appear clear.? Emphysematous change.? No pleural effusions or pneumothorax.? ? Mediastinum:? Mediastinal contours appear unchanged.? Heart size is normal.? ? Bones and chest wall:? No suspicious bony lesions.? Overlying soft tissues appear unremarkable.? ? IMPRESSION:? No acute cardiopulmonary abnormality. ? ? ? Dictated by: Black Corea M.D. on 08/10/2022 at 8:07 ? ? Approved by: Black Corea M.D. on 08/10/2022 at 8:09 ? CT - cervical spine: Radiologist's Impression: [place] [address] CT Scan Report Signed Patient: Bart Adams V MR#: [id number] : 1950 Acct:[id number] Age/Sex: 71 / M Date of Service: 08/10/22 Loc: ED Accession Number: [id number] ?? Procedure: CT cervical spine wo con Ordering Provider: Robert Lopez MD PROCEDURE:? CT CERVICAL SPINE WO CON ? INDICATIONS:? Altered mental status ? TECHNIQUE:? Noncontrast 3 mm thick sections acquired from the skull base to the T4 level.? Sagittal and coronal reformats were then constructed.? For radiation dose reduction, the following was used:? automated exposure control, adjustment of mA and/or kV according to patient size.? ? COMPARISON:? [facility], CT, CT CERVICAL SPINE WO CON, 04/01/2022, 19:40. ? FINDINGS:? Image quality:? Excellent.? ? Bones:? No fractures or dislocations.? Visualized superior ribs are intact.? Severe cervical spondylitic change.? Multilevel disc height loss.? Multilevel u ncovertebral joint hypertrophy with significant multilevel foraminal narrowing.? There is multilevel facet arthropathy.? ? Soft tissues:? Prevertebral soft tissues are normal in thickness.? No paraver tebral hematomas.? No apical pneumothoraces.? Biapical emphysematous change. ? ? IMPRESSION:? ? 1. No evidence of acute cervical fracture or dislocation. ? 2. Severe cervical spondylosis. ? 3. COPD.? Dictated by: Jimi Colunga M.D. on 08/10/2022 at 8:05 ? ? Approved by: Jimi Colunga M.D. on 08/10/2022 at 8:06 ? X-ray pelvis: Radiologist's Impression: [address] [address] XRay Report Signed Patient: Bart Adams V MR#: [id number] : 1950 Acct:[id number] Age/Sex: 71 / M Date of Service: 08/10/22 Loc: ED Accession Number: [id number] ?? Procedure: XR pelvis 1-2V Ordering Provider: Robert Lopez MD PROCEDURE:? XR PELVIS 1-2V ? INDICATIONS:? Fall/injury ? TECHNIQUE:? 1 view(s) of the pelvis acquired.? ? COMPARISON:? None. ? FINDINGS:? ? Bones:? No fractures or dislocations.? No suspicious bony lesions.? ? Soft tissues:? Visualized bowel gas pattern is normal.? No suspicious soft tissue calcifications.? ? IMPRESSION:? No fracture demonstrated. ? ? Dictated by: Black Corea M.D. on 08/10/2022 at 8:11 ? ? Approved by: Black Corea M.D. on 08/10/2022 at 8:12 ? CTA - brain/neck: Radiologist's Impression: [address] [address] [address] Scan Report Signed Patient: Bart Adams V MR#: [id number] : 1950 Acct:[id number] Age/Sex: 71 / M Date of Service: 08/10/22 Loc: ED Accession Number: [id number] ?? Procedure: CT angio head and neck Ordering Provider: Robert Lopez MD PROCEDURE:? CT ANGIO HEAD AND NECK ? INDICATIONS:? Altered mental status ? TECHNIQUE:? Pre-contrast 4.5 mm thick sections acquired from the foramen magnum to the vertex.? After the administration of intravenous contrast, 1 mm thick sections acquired from the aortic arch through the [place] of [place].? Post-contrast 4.5 mm thick sections then re- acquired from the foramen magnum to the vertex.? 3-dimensional inhfdak-nydcmbyqw-bycblxiidq (MIP) and/or volume rendering reformats were acquired of the central intracranial vasculature and neck separately. For radiation dose reduction, the following was used:? automated exposure control, adjustment of mA and/or kV according to patient size.? ? COMPARISON:? None. ? FINDINGS:? Image quality:? Excellent.? ? BRAIN:? CSF spaces:? Ventricles are normal in size and shape.? Basal cisterns are patent.? No extra-axial fluid collections.? ? Brain:? No midline shift.? No intracranial bleeds or masses.? [place]-white matter interface appears intact.? ? Skull and face:? Calvarium and facial bones appear intact, without suspicious lesions.? Orbits appear normal.? ? Sinuses:? Sinuses and mastoids are clear.? ? HEAD CT ANGIOGRAPHY:? Anterior circulation:? Intracranial internal carotid arteries are normal in size and flow.? The flow within the paired anterior cerebral arteries is normal and symmetric.? The flow within the middle cerebral arteries is normal and symmetric.? The anterior communicating artery is seen.? No aneurysms are seen.? ? Posterior circulation:? Visualized portions of the vertebral arteries demonstrate normal caliber, and join to form a normal appearing basilar artery.? Flow within the posterior cerebral arteries is normal and symmetric.? No aneurysms are seen.? ? NECK CT ANGIOGRAPHY:? Carotid system:? The great vessels demonstrate a conventional anatomy as they arise from the aortic arch.? The origins of the common carotid arteries appear patent.? The common carotid arteries demonstrate normal caliber and courses.? The bifurcation regions are both widely patent.? The internal carotid arteries demonstrate very mild proxi mal disease, with otherwise normal calibers and courses.? ? Posterior circulation:? The origins of the vertebral arteries both appear widely patent.? The more superior extracranial portions of both vertebral arteries also demonstrate normal courses and calibers.? They join to form a normal appearing basilar artery.? ? Additional:? Note is made of a 40% proximal left subclavian artery stenosis seco ndary to soft plaque. ? Soft tissues:? Visualized neck soft tissues demonstrate no suspicious abnorm alities.? Biapical emphysematous change. ? Bones:? No suspicious bony lesions.? Visualized cervical spine appears normally aligned.? Severe cervical spondylosis.? ? ? IMPRESSION:? ? 1. No evidence of acute intracranial process. ? 2. Unremarkable CTA head.? No stenosis, aneurysm, occlusion, or focal filling defect. ? 3. No significant carotid stenosis.? 40% proximal left subclavian artery stenosis with soft plaque.? ? ? Any quantitative measurements of stenosis were performed using NASCET criteria.? ? ? Dictated by: Jimi Colunga M.D. on 08/10/2022 at 8:06 ? ? Approved by: Jimi Colunga M.D. on 08/10/2022 at 8:11 ? ECG Data Interpretation: Sinus bradycardia rate [address] elevation or depression otherwise normal EKG MDM Narrative Medical decision making narrative: Patient with history of epilepsy schizophrenia and substance abuse, brought in by ambulance from home. Blood sugar 97. Patient is very difficult to understand. EMS states he lives alone and as far as they know he is full code. Evidently, medical alarm was pressed by patient from his home. He is able to indicate that his head hurts and that is why he activated EMS. Otherwise, it is very difficult to obtain history from patient, he nods or says yes to essentially every question. No known if recent illness. Possible fall. Patient has history of frequent visits here for falls and altered mental status and seizures. EMS states that they have come to his residence before and he is usually functional and talking and interactive but this is different this morning. After exam and history and evaluation, orders for altered mental status and trauma have been ordered including CT head cervical spine/x-ray of chest and pelvis, CBC CMP troponin EKG urinalysis drug screen and alcohol levels. MDM CC: Altered mental status Complicating co-morbidities: Schizophrenia/substance abuse/seizures Data collected from: EMS Medical records reviewed: Previous visits for falls and altered mental status Differential considered: Includes but not limited to seizure/trauma/head injury/intracranial bleed/stroke/substance abuse/UTI/dehydration Exam documented above, pertinent findings include: Altered mental status Lab Test results independently reviewed as above. Pertinent findings: Independently reviewed EKG as above sinus bradycardia rate [address] elevation or depression, otherwise normal EKG Imaging studies independently reviewed: Chest x-ray no acute cardiopulmonary process, CT cervical spine no acute cervical fracture or dislocation, x-ray pelvis no fracture demonstrated, CT angiogram head neck no evidence of acute intracranial process. Unremarkable CT angiogram head. No significant carotid stenosis Treatments: Keppra Re-evaluations: 10:13 a.m.. Patient is now awake alert oriented x4. He remembers this morning's event he got up to go the bathroom, he had a mild headache which she states is common aura for his seizure. He remembers awakening on the floor and crawling to the bed and activated EMS. Patient likely postictal when he arrived here. He and has clear speech and has no headache. Denies any pain at this time. Denies any injury from his seizure. He has not had Keppra in 3 months. He does have a primary care office but does not like going there. He would like a new referral. I will write him prescr iption for Keppra 500 mg twice a day. He states he lives with his son. His son takes care of him. He feels safe at home. Discussion: Appropriate for discharge home. Patient now is awake alert o riented x4. He does recall event prior to EMS arrival that he did have a seizure. States it has been a long time since his last seizure. However, he is not been taking his Keppra 500 mg twice a day. Return precautions reviewed with him. He feels safe returning home to be with his son. Primary care referral will be given to him. Diagnosis: Seizure Discharge Plan Departure Patient Disposition: Home Clinical Impression: Seizure Instructions: DI for Seizure Disorder -- Adult Activity Restrictions/Additional Instructions: Please do not skip your medications. Refill for your Keppra/seizure medication has been sent to your pharmacy to car pick up driver and continued today. Please see saran neri doctor this week for re-evaluation. Call provided primary care referral phone number to establish family doctor. Call [phone]. Return if worse if any questions or concerns. Prescriptions: New levetiracetam 500 mg tablet 500 mg PO BID Qty: 60 0RF No Action aspirin,buffd-calcium carb-mag [Bufferin] 325 MG tablet 325 mg PO Qty: 0 [HTN MED] Qty: 0 [BPH MED] Qty: 0 hydroxyzine pamoate 25 mg Capsule 25 mg PO TID PRN (Reason: Anxiety) risperidone 2 mg Tablet 4 mg PO DAILY fluoxetine 60 mg Tablet 60 mg PO DAILY benztropine 0.5 mg Tablet 0.5 mg PO TID levetiracetam 500 mg Tablet 500 mg PO Q12H aspirin 81 mg Tablet,Chewable 81 mg PO DAILY meclizine 25 mg tablet 25 mg PO BID PRN (Reason: vertigo) Qty: 10 0RF cephalexin 500 mg capsule 500 mg PO BID Qty: 10 0RF Stand Alone Forms: Patient Portal/API
[2022-08-10 07:16] LABS: Add Manual Diff / Slide Review NO; Basophils Absolute Auto 100 /uL (0-100); Eosinophils Absolute Auto 400 /uL (0-450); Eosinophils Percent Auto 6.4 % (2-4); Hematocrit 38.4 % (41-53); Hemoglobin 12.7 g/dL (13.5-17.5); Lymphocytes Absolute Auto 2100 /uL (1100-4500); Lymphocytes Percent Auto 31.8 % (25-40); Mean Corpuscular HGB Conc 32.9 % (30-36); Mean Corpuscular Hemoglobin 28.3 PG (26-34); Monocytes Absolute Auto 500 /uL (0-900); Monocytes Percent Auto 7.7 % (3-14); Neutrophils Absolute Auto 3600 /uL (1500-7000); Neutrophils Percent Auto 53.1 % (50-75); Platelet Count 257 X10^3/uL (150-400); Red Blood Cell Count 4.47 X10^6/uL (4.5-5.9); Red Cell Distribution Width 14.5 % (11.6-14.8); White Blood Cell Count 6.7 X10^3/uL (4.5-11.0)
[2022-08-10 07:20] LABS: INR 1.1 (0.9-1.3); Prothrombin Time 12.2 SECONDS (10.1-12.7)
[2022-08-10 07:22] LABS: PTT Partial Thromboplastin Tim 32 SECONDS (26-36)
[2022-08-10 07:25] LABS: Acetaminophen < 10 ug/mL (10-30); Alanine Aminotransferase 20 IU/L (<50); Albumin 3.5 g/dL (3.5-5.0); Alkaline Phosphatase 88 U/L (38-126); Aspartate Aminotransferase 33 IU/L (17-59); BUN Creatinine Ratio 27.8 (6-22); Bilirubin Total 0.7 mg/dL (0.2-1.3); Blood Urea Nitrogen 22 mg/dL (9-20); Calcium 8.2 mg/dL (8.4-10.2); Carbon Dioxide 26 mmol/L (22-32); Chloride 107 mmol/L (98-107); Creatine Kinase 104 U/L (55-170); Estimated Glomerular Filt Rate > 60 mL/min (>60); Ethanol (ETOH) < 10 mg/dL; Globulin 3.6 g/dL (1.7-4.1); Glucose 92 mg/dL (80-110); HEMOLYSIS < 15 (0-50); Lactate (Lactic Acid) 0.9 mmol/L (0.7-2.1); Potassium 4.2 mmol/L (3.4-5.1); Sodium 140 mmol/L (137-145); Total Protein 7.1 g/dL (6.3-8.2)
[2022-08-10 07:37] LABS: Troponin I < 0.012 ng/mL (0.01-0.034)
[2022-08-10 07:39] LABS: CKMB % Relative Index 2.2 % (1.5-5.0); Creatine Kinase MB 2.28 ng/mL (<2.37)
[2022-08-10 07:41] LABS: Procalcitonin 0.07 ng/mL (<0.5); Prolactin 18.8 ng/mL (3.7-17.9)
[2022-08-10 08:09] LABS: Ammonia (NH3) < 9 umol/L (9-30)
[2022-08-10 08:24] LABS: Thyroid Stimulating Hormone 1.66 uIU/mL (0.47-4.68)
[2022-08-10 09:14] LABS: COVID19 - ADMIT (NP swab/PCR) Negative (Negative)
[2022-08-10 09:32] LABS: UR Morphine/Opiate cutoff 300 Negative (Negative); Ur Creatinine Normal (Normal); Ur Specific Gravity Normal (Normal); Urine Amphetamines Negative (Negative); Urine Barbiturates Negative (Negative); Urine Benzodiazepines Negative (Negative); Urine Cocaine Negative (Negative); Urine MDMA Negative (Negative); Urine Methadone Negative (Negative); Urine Methamphetamines Negative (Negative); Urine Oxycodone Negative (Negative); Urine Phencyclidine Negative (Negative); Urine Tetrahydrocannabinol Positive (Negative); Urine Tricyclic Antidepressant Negative (Negative); Urine pH Normal (Normal)
--- NOTE | 2022-08-10 09:35 | PC.NURSE ---
Pt lives alone, he is non verbal, parkinsons, schizophrenic and COPD. Medical alert company called EMS for altered LOC.
[2022-08-10] MEDS: levETIRAcetam 250 MG TABLET 500 MG PO (10:24)
== END 2022-08-10 11:18 | disposition home or self-care (01) ==
PROVIDERS: Emergency Provider Emergency Medicine
DX: G40.909 Epilepsy, unspecified, not intractable, without status epilepticus (principal); F20.9 Schizophrenia, unspecified; Z20.822 Contact with and (suspected) exposure to COVID-19
CPT/HCPCS: 36415; 70496; 70498; 71045; 72125; 72170; 80053; 80305; 80320; 80329; 81003; 82140; 82550; 82553; 83605; 84145; 84146; 84443; 84484; 85025; 85610; 85730; 87635; 93005; 99284; C9803; G0480; Q9967

== ENCOUNTER 2022-10-12 06:00 | Emergency (ER) | payer MEDICARE, MEDICAID, SELFPAY ==
[2022-10-12] VITALS (14 sets, daily range): BP systolic 123–148; BP diastolic 63–77; PULSE 56–86; RESP 18–30; TEMP 37.1; O2SAT 95–99
--- NOTE | 2022-10-12 06:08 | DI.RAD.S_ITS ---
PROCEDURE: XR CHEST 1V INDICATIONS: chest pain TECHNIQUE: One view of the chest was acquired. COMPARISON: [facility], CR, XR CHEST 1V, 08/10/2022, 7:11. [facility], CR, XR CHEST 1V, 06/23/2022, 8:19. FINDINGS: Surgical changes and devices: None. Lungs and pleura: Right apical scarring. No pneumothorax. Mediastinum: Mediastinal contours appear normal. Heart size is normal. Bones and chest wall: No suspicious bony lesions. Overlying soft tissues appear unremarkable. IMPRESSION: No acute cardiopulmonary process. Dictated by: Sami Alex M.D. on 10/12/2022 at 8:11 Approved by: Sami Alex M.D. on 10/12/2022 at 8:12
--- NOTE | 2022-10-12 06:11 | ED.GENADULT ---
HPI - General Adult <Isacc Walsh DO - Last Filed: 10/12/22 18:19> General Chief complaint: Chest Pain Stated complaint: Chest pain Time Seen by Provider: 10/12/22 06:03 Source: patient and EMS Mode of arrival: EMS Limitations: no limitations History of Present Illness HPI narrative: Patient is a 71-year-old male who arrives by EMS. EMS was called after the patient hit his life Alert monitor for reports of chest discomfort. It awoke him from sleep. Upon arrival EMS reports that he is somewhat more confused than what he normally is. They frequently get called to his house for various issues. He does have a history of seizures. Also has a history of polysubstance abuse and schizophrenia. He was seen here in July for very similar symptoms and it was determined that he was postictal and having a seizure. He did receive aspirin prior to arrival. He received 2 nitroglycerin. The 1st 1 reported to improve his symptoms from a 10/10 to a 5/10. There was no change with the 2nd nitro. The patient is very difficult to hear. He answered yes to most of the questions that I asked him to include chest pain and shortness of breath and headache. He is not on any anticoagulation per his medicine list. Patient was obviously confused upon arrival has he answered ?October? when asked him what year it was. Related Data Home Medications Medication Instructions Recorded Confirmed [BPH MED] ##0 11/29/16 [HTN MED] ##0 11/29/16 aspirin,buffered (calcium 325 mg PO ##0 11/29/16 carbonate-magnesium) 325 mg tablet (Bufferin) aspirin 81 mg chewable tablet 81 mg PO DAILY 11/19/17 03/15/18 benztropine 0.5 mg tablet 0.5 mg PO TID 11/19/17 03/15/18 fluoxetine 60 mg tablet 60 mg PO DAILY 11/19/17 03/15/18 hydroxyzine pamoate 25 mg capsule 25 mg PO TID PRN Anxiety 11/19/17 03/15/18 risperidone 2 mg tablet 4 mg PO DAILY 11/19/17 03/15/18 Previous Rx's Medication Instructions Recorded meclizine 25 mg tablet 25 mg PO BID PRN vertigo #10 tabs 11/19/17 cephalexin 500 mg capsule 500 mg PO BID #10 caps 04/02/22 levetiracetam 500 mg tablet 500 mg PO BID #60 tabs 08/10/22 Allergies Allergy/AdvReac Type Severity Reaction Status Date / Time hydrocodone [HYDROCODONE] Allergy Unknown Verified 10/12/22 06:41 Sulfa (Sulfonamide Allergy Unknown Verified 10/12/22 06:41 Antibiotics) [SULFA (SULFONAMIDE ANTIBIOTICS)] Review of Systems <Isacc Walsh DO - Last Filed: 10/12/22 18:19> Review of Systems Narrative: Patient answered yes to chest pain, shortness of breath, headache, abdominal pain. I question whether not he understood the review of systems questions. Patient History <Isacc Walsh DO - Last Filed: 10/12/22 18:19> Medical History Anemia Epilepsy Psychoactive substance abuse Schizophrenia Tobacco abuse Surgical History (Updated 08/10/22 @ 07:14 by Lady Shante Núñez) No significant past surgical history No significant past surgical history Social History household members: none lives independently: Yes occupational status: unemployed Smoking Status: Current some day smoker alcohol intake: never substance use type: does not use Smoking Status: Current some day smoker tobacco type: cigarettes alcohol intake frequency: 0-2 drinks per day Substance Use Type: does not use Exam <Isacc Walsh DO - Last Filed: 10/12/22 18:19> Initial Vital Signs Initial Vital Signs: Vital Signs Temperature 98.7 F 10/12/22 06:10 Pulse Rate 86 10/12/22 06:10 Respiratory Rate 18 10/12/22 06:10 Blood Pressure 129/63 10/12/22 06:10 Oxygen Delivery Method Room Air 10/12/22 06:10 Const General: cooperative, frail appearing and No ill appearing HENVA Head: normal to inspection and normocephalic Resp Effort & Inspection: normal respiratory effort Auscultation: clear to auscultation bilaterally Cardio Rate: regular rate Rhythm: regular rhythm GI Inspection: normal to inspection Palpation: soft and No firm Skin General: no rashes or lesions noted Neuro Other: Patient is alert. He stated that he hit his button in order for EMS to come. He did not know what year was. Did follow commands. His speech is very soft. Extrem General: capillary refill normal Psych Appearance: grossly normal <Maddie Senior DO - Last Filed: 10/12/22 16:01> Initial Vital Signs Initial Vital Signs: Vital Signs Temperature 98.7 F 10/12/22 06:10 Pulse Rate 86 10/12/22 06:10 Respiratory Rate 18 10/12/22 06:10 Blood Pressure 129/63 10/12/22 06:10 Oxygen Delivery Method Room Air 10/12/22 06:10 Scores <Isacc Walsh DO - Last Filed: 10/12/22 18:19> GCS [place] coma scale eye opening: Spontaneous [place] coma scale verbal response: Confused [place] coma scale motor response: Obey commands [place] coma scale total score: 14 <Maddie Senior DO - Last Filed: 10/12/22 16:01> GCS [place] coma scale total score: 14 Course <Isacc Walsh DO - Last Filed: 10/12/22 18:19> Orders Ordered: ED Orders 10/12/22 09:[address] [facility] [place] - Sprinkler Installer Stat 10/12/22 09:37 Urinalysis and Microscopic Stat Urine Drug Screen, Rapid Stat Discontinued Medications Sodium Chloride (Normal Saline 0.9%) 1,000 mls @ 125 mls/hr IV CONT RITA Last Infusion: 10/12/22 11:43 Dose: 0 mls/hr Documented By: Admin: 10/12/22 06:50 Dose: 125 mls/hr Documented By: WAYNE Levetiracetam 500 mg/ Sodium (Chloride) 105 mls @ 420 mls/hr IV NOW ONE Stop: 10/12/22 06:07 Last Infusion: 10/12/22 07:12 Dose: 0 mls/hr Documented By: Admin: 10/12/22 06:49 Dose: 420 mls/hr Documented By: WAYNE Ondansetron HCl (Ondansetron 4 Mg/2 Ml Inj) 4 mg IV NOW ONE Stop: 10/12/22 06:24 Last Admin: 10/12/22 06:49 Dose: 4 mg Documented By: WAYNE Vital Signs Vital signs: Vital Signs - 8 hr 10/12/22 10:30 10/12/22 10:30 10/12/22 11:00 Pulse Rate 58 L Respiratory Rate 27 H Blood Pressure 132/65 148/66 H Pulse Oximetry 99 Oxygen Delivery Method Room Air 10/12/22 11:00 10/12/22 11:30 Pulse Rate 72 61 Respiratory Rate 23 23 Blood Pressure Pulse Oximetry 98 98 Oxygen Delivery Method Room Air Room Air <Maddie Senior, - Last Filed: 10/12/22 16:01> Orders Ordered: ED Orders 10/12/22 09:25 Consult to OXYGEN THERAPY TECHNICIAN - Sprinkler Installer Stat 10/12/22 09:37 Urinalysis and Microscopic Stat Urine Drug Screen, Rapid Stat Discontinued Medications Sodium Chloride (Normal Saline 0.9%) 1,000 mls @ 125 mls/hr IV CONT RITA Last Infusion: 10/12/22 11:43 Dose: 0 mls/hr Documented By: Admin: 10/12/22 06:50 Dose: 125 mls/hr Documented By: WAYNE Levetiracetam 500 mg/ Sodium (Chloride) 105 mls @ 420 mls/hr IV NOW ONE Stop: 10/12/22 06:07 Last Infusion: 10/12/22 07:12 Dose: 0 mls/hr Documented By: Admin: 10/12/22 06:49 Dose: 420 mls/hr Documented By: WAYNE Ondansetron HCl (Ondansetron 4 Mg/2 Ml Inj) 4 mg IV NOW ONE Stop: 10/12/22 06:24 Last Admin: 10/12/22 06:49 Dose: 4 mg Documented By: WAYNE Vital Signs Vital signs: Vital Signs - 8 hr 10/12/22 10:30 10/12/22 10:30 10/12/22 11:00 Pulse Rate 58 L Respiratory Rate 27 H Blood Pressure 132/65 148/66 H Pulse Oximetry 99 Oxygen Delivery Method Room Air 10/12/22 11:00 10/12/22 11:30 Pulse Rate 72 61 Respiratory Rate 23 23 Blood Pressure Pulse Oximetry 98 98 Oxygen Delivery Method Room Air Room Air Medical Decision Making <Isacc Walsh DO - Last Filed: 10/12/22 18:19> Medical Records Medical records reviewed: Yes I reviewed the patient's medical records. Lab Data 10/12/22 06:00 10/12/22 06:00 Labs: Lab Results 10/12/22 10/12/22 10/12/22 Range/Units 06:00 06:00 06:00 WBC 10.5 (4.5-11.0) X10^3/uL RBC 4.81 (4.5-5.9) X10^6/uL Hgb 13.4 L (13.5-17.5) g/dL Hct 39.9 L (41-53) % MCV 82.9 (80-100) fL MCH 27.9 (26-34) PG MCHC 33.7 (30-36) % RDW 15.1 H (11.6-14.8) % Plt Count 356 (150-400) X10^3/uL Neut % (Auto) 66.8 (50-75) % Lymph % (Auto) 24.4 L (25-40) % Alfalfa % (Auto) 5.9 (3-14) % Eos % (Auto) 2.4 (2-4) % Baso % (Auto) 0.5 (0-2) % Neut # (Auto) 7000 (1122-0444) /uL Lymph # (Auto) 2600 (8503-8891) /uL Alfalfa # (Auto) 600 (0-900) /uL Eos # (Auto) 300 (0-450) /uL Baso # (Auto) 100 (0-100) /uL Sodium 137 (137-145) mmol/L Potassium 4.0 (3.4-5.1) mmol/L Chloride 107 (98-107) mmol/L Carbon Dioxide 26 (22-32) mmol/L BUN 21 H (9-20) mg/dL Creatinine 0.76 (0.66-1.25) mg/dL Estimated GFR > 60 (>60) mL/min BUN/Creatinine Ratio 27.6 H (6-22) Glucose 90 (80-110) mg/dL Calcium 8.4 (8.4-10.2) mg/dL Total Bilirubin 0.5 (0.2-1.3) mg/dL AST 28 (17-59) IU/L ALT 19 (<50) IU/L Alkaline Phosphatase 110 (38-126) U/L Total Creatine Kinase 43 L (55-170) U/L CK-MB (CK-2) TNP CK-MB (CK-2) Rel Index TNP Troponin I < 0.012 (0.01-0.034) ng/mL Total Protein 7.5 (6.3-8.2) g/dL Albumin 3.5 (3.5-5.0) g/dL Globulin 4.0 (1.7-4.1) g/dL Albumin/Globulin Ratio 0.9 L (1.0-2.8) Lipase 134 (23-300) U/L Prolactin 16.8 (3.7-17.9) ng/mL Urine Color Urine Appearance Urine pH (4.5-8.0) Ur Specific [place] (1.000-1.035) Urine Protein (Negative) Urine Glucose (UA) (Negative) g/dL Urine Ketones (NEGATIVE) Urine Occult Blood (Negative) Urine Nitrate (Negative) Urine Bilirubin (NEGATIVE) Urine Urobilinogen (0.2) E.U./dL Ur Leukocyte Esterase (NEGATIVE) Urine RBC (0-5/HPF) Urine WBC (0-5/HPF) Urine Bacteria (None) Ur Culture Indicated? Micro UA Comment U Opiates 300ng/mL cut (Negative) Ur Oxycodone Screen (Negative) Urine Methadone Screen (Negative) Ur Barbiturates Screen (Negative) U Tricyclic Antidepress (Negative) Ur Phencyclidine Scrn (Negative) Ur Amphetamines Screen (Negative) U Methamphetamines Scrn (Negative) Ur MDMA Scrn (Ecstasy) (Negative) U Benzodiazepines Scrn (Negative) Urine Cocaine Screen (Negative) U Marijuana (THC) Screen (Negative) Ethyl Alcohol < 10 ( - 10) mg/dL SARS-CoV-2 (PCR) (Negative) 10/12/22 10/12/22 10/12/22 Range/Units 06:13 08:00 09:37 WBC (4.5-11.0) X10^3/uL RBC (4.5-5.9) X10^6/uL Hgb (13.5-17.5) g/dL Hct (41-53) % MCV (80-100) fL MCH (26-34) PG MCHC (30-36) % RDW (11.6-14.8) % Plt Count (150-400) X10^3/uL Neut % (Auto) (50-75) % Lymph % (Auto) (25-40) % Alfalfa % (Auto) (3-14) % Eos % (Auto) (2-4) % Baso % (Auto) (0-2) % Neut # (Auto) (9569-5252) /uL Lymph # (Auto) (3420-8228) /uL Alfalfa # (Auto) (0-900) /uL Eos # (Auto) (0-450) /uL Baso # (Auto) (0-100) /uL Sodium (137-145) mmol/L Potassium (3.4-5.1) mmol/L Chloride (98-107) mmol/L Carbon Dioxide (22-32) mmol/L BUN (9-20) mg/dL Creatinine (0.66-1.25) mg/dL Estimated GFR (>60) mL/min BUN/Creatinine Ratio (6-22) Glucose (80-110) mg/dL Calcium (8.4-10.2) mg/dL Total Bilirubin (0.2-1.3) mg/dL AST (17-59) IU/L ALT (<50) IU/L Alkaline Phosphatase (38-126) U/L Total Creatine Kinase (55-170) U/L CK-MB (CK-2) CK-MB (CK-2) Rel Index Troponin I < 0.012 (0.01-0.034) ng/mL Total Protein (6.3-8.2) g/dL Albumin (3.5-5.0) g/dL Globulin (1.7-4.1) g/dL Albumin/Globulin Ratio (1.0-2.8) Lipase (23-300) U/L Prolactin (3.7-17.9) ng/mL Urine Color Yellow Urine Appearance Clear Urine pH 6.0 (4.5-8.0) Ur Specific [place] 1.025 (1.000-1.035) Urine Protein Negative (Negative) Urine Glucose (UA) Negative (Negative) g/dL Urine Ketones Negative (NEGATIVE) Urine Occult Blood Negative (Negative) Urine Nitrate Negative (Negative) Urine Bilirubin Negative (NEGATIVE) Urine Urobilinogen 0.2 (0.2) E.U./dL Ur Leukocyte Esterase Negative (NEGATIVE) Urine RBC None seen (0-5/HPF) Urine WBC None seen (0-5/HPF) Urine Bacteria None seen (None) Ur Culture Indicated? Cult not indicated Micro UA Comment Microscopic normal U Opiates 300ng/mL cut (Negative) Ur Oxycodone Screen (Negative) Urine Methadone Screen (Negative) Ur Barbiturates Screen (Negative) U Tricyclic Antidepress (Negative) Ur Phencyclidine Scrn (Negative) Ur Amphetamines Screen (Negative) U Methamphetamines Scrn (Negative) Ur MDMA Scrn (Ecstasy) (Negative) U Benzodiazepines Scrn (Negative) Urine Cocaine Screen (Negative) U Marijuana (THC) Screen (Negative) Ethyl Alcohol ( - 10) mg/dL SARS-CoV-2 (PCR) Negative (Negative) 10/12/22 Range/Units 09:37 WBC (4.5-11.0) X10^3/uL RBC (4.5-5.9) X10^6/uL Hgb (13.5-17.5) g/dL Hct (41-53) % MCV (80-100) fL MCH (26-34) PG MCHC (30-36) % RDW (11.6-14.8) % Plt Count (150-400) X10^3/uL Neut % (Auto) (50-75) % Lymph % (Auto) (25-40) % Alfalfa % (Auto) (3-14) % Eos % (Auto) (2-4) % Baso % (Auto) (0-2) % Neut # (Auto) (9463-1716) /uL Lymph # (Auto) (4542-5705) /uL Alfalfa # (Auto) (0-900) /uL Eos # (Auto) (0-450) /uL Baso # (Auto) (0-100) /uL Sodium (137-145) mmol/L Potassium (3.4-5.1) mmol/L Chloride (98-107) mmol/L Carbon Dioxide (22-32) mmol/L BUN (9-20) mg/dL Creatinine (0.66-1.25) mg/dL Estimated GFR (>60) mL/min BUN/Creatinine Ratio (6-22) Glucose (80-110) mg/dL Calcium (8.4-10.2) mg/dL Total Bilirubin (0.2-1.3) mg/dL AST (17-59) IU/L ALT (<50) IU/L Alkaline Phosphatase (38-126) U/L Total Creatine Kinase (55-170) U/L CK-MB (CK-2) CK-MB (CK-2) Rel Index Troponin I (0.01-0.034) ng/mL Total Protein (6.3-8.2) g/dL Albumin (3.5-5.0) g/dL Globulin (1.7-4.1) g/dL Albumin/Globulin Ratio (1.0-2.8) Lipase (23-300) U/L Prolactin (3.7-17.9) ng/mL Urine Color Urine Appearance Urine pH (4.5-8.0) Ur Specific [place] (1.000-1.035) Urine Protein (Negative) Urine Glucose (UA) (Negative) g/dL Urine Ketones (NEGATIVE) Urine Occult Blood (Negative) Urine Nitrate (Negative) Urine Bilirubin (NEGATIVE) Urine Urobilinogen (0.2) E.U./dL Ur Leukocyte Esterase (NEGATIVE) Urine RBC (0-5/HPF) Urine WBC (0-5/HPF) Urine Bacteria (None) Ur Culture Indicated? Micro UA Comment U Opiates 300ng/mL cut Negative (Negative) Ur Oxycodone Screen Negative (Negative) Urine Methadone Screen Negative (Negative) Ur Barbiturates Screen Negative (Negative) U Tricyclic Antidepress Negative (Negative) Ur Phencyclidine Scrn Negative (Negative) Ur Amphetamines Screen Negative (Negative) U Methamphetamines Scrn Negative (Negative) Ur MDMA Scrn (Ecstasy) Negative (Negative) U Benzodiazepines Scrn Negative (Negative) Urine Cocaine Screen Negative (Negative) U Marijuana (THC) Screen Positive H (Negative) Ethyl Alcohol ( - 10) mg/dL SARS-CoV-2 (PCR) (Negative) Imaging Data Chest x-ray: Radiologist's Impression: Slight increased interstitial disease on the right possible interstitial pneumonia versus interstitial pulmonary edema. Normal cardiac silhouette. No pleural effusion CT scan - head: Radiologist's Impression: No acute intracranial abnormality ECG Data Attestation: I personally reviewed and interpreted this ECG as follows: Interpretation: Sinus rhythm Ventricular rate 84 Occasional PACs [address]-elevation in V3 no reciprocal changes. No other elevations. MDM Narrative Medical decision making narrative: Patient was very difficult to understand and was obviously confused. Review of his medical record shows he presented very similar to this in July this year where he eventually regained consciousness and was alert oriented x4 and was eventually discharged home with diagnosis of a seizure. At that point he was not complaining of chest pain which is what he is complaining of today. His EKG today is very similar to the EKG in July. Labs were ordered. Chest x-ray is unremarkable. CT scan of the head is pending. Care turned over to Dr. Senior to continue to observe and disposition. <Maddie Senior, DO - Last Filed: 10/12/22 16:01> Lab Data Labs: Lab Results 10/12/22 10/12/22 10/12/22 Range/Units 06:00 06:00 06:00 WBC 10.5 (4.5-11.0) X10^3/uL RBC 4.81 (4.5-5.9) X10^6/uL Hgb 13.4 L (13.5-17.5) g/dL Hct 39.9 L (41-53) % MCV 82.9 (80-100) fL MCH 27.9 (26-34) PG MCHC 33.7 (30-36) % RDW 15.1 H (11.6-14.8) % Plt Count 356 (150-400) X10^3/uL Neut % (Auto) 66.8 (50-75) % Lymph % (Auto) 24.4 L (25-40) % Al[place]alfa % (Auto) 5.9 (3-14) % Eos % (Auto) 2.4 (2-4) % Baso % (Auto) 0.5 (0-2) % Neut # (Auto) 7000 (4737-5017) /uL Lymph # (Auto) 2600 (4300-0734) /uL Alfalfa # (Auto) 600 (0-900) /uL Eos # (Auto) 300 (0-450) /uL Baso # (Auto) 100 (0-100) /uL Sodium 137 (137-145) mmol/L Potassium 4.0 (3.4-5.1) mmol/L Chloride 107 (98-107) mmol/L Carbon Dioxide 26 (22-32) mmol/L BUN 21 H (9-20) mg/dL Creatinine 0.76 (0.66-1.25) mg/dL Estimated GFR > 60 (>60) mL/min BUN/Creatinine Ratio 27.6 H (6-22) Glucose 90 (80-110) mg/dL Calcium 8.4 (8.4-10.2) mg/dL Total Bilirubin 0.5 (0.2-1.3) mg/dL AST 28 (17-59) IU/L ALT 19 (<50) IU/L Alkaline Phosphatase 110 (38-126) U/L Total Creatine Kinase 43 L (55-170) U/L CK-MB (CK-2) TNP CK-MB (CK-2) Rel Index TNP Troponin I < 0.012 (0.01-0.034) ng/mL Total Protein 7.5 (6.3-8.2) g/dL Albumin 3.5 (3.5-5.0) g/dL Globulin 4.0 (1.7-4.1) g/dL Albumin/Globulin Ratio 0.9 L (1.0-2.8) Lipase 134 (23-300) U/L Prolactin 16.8 (3.7-17.9) ng/mL Urine Color Urine Appearance Urine pH (4.5-8.0) Ur Specific [place] (1.000-1.035) Urine Protein (Negative) Urine Glucose (UA) (Negative) g/dL Urine Ketones (NEGATIVE) Urine Occult Blood (Negative) Urine Nitrate (Negative) Urine Bilirubin (NEGATIVE) Urine Urobilinogen (0.2) E.U./dL Ur Leukocyte Esterase (NEGATIVE) Urine RBC (0-5/HPF) Urine WBC (0-5/HPF) Urine Bacteria (None) Ur Culture Indicated? Micro UA Comment U Opiates 300ng/mL cut (Negative) Ur Oxycodone Screen (Negative) Urine Methadone Screen (Negative) Ur Barbiturates Screen (Negative) U Tricyclic Antidepress (Negative) Ur Phencyclidine Scrn (Negative) Ur Amphetamines Screen (Negative) U Methamphetamines Scrn (Negative) Ur MDMA Scrn (Ecstasy) (Negative) U Benzodiazepines Scrn (Negative) Urine Cocaine Screen (Negative) U Marijuana (THC) Screen (Negative) Ethyl Alcohol < 10 ( - 10) mg/dL SARS-CoV-2 (PCR) (Negative) 10/12/22 10/12/22 10/12/22 Range/Units 06:13 08:00 09:37 WBC (4.5-11.0) X10^3/uL RBC (4.5-5.9) X10^6/uL Hgb (13.5-17.5) g/dL Hct (41-53) % MCV (80-100) fL MCH (26-34) PG MCHC (30-36) % RDW (11.6-14.8) % Plt Count (150-400) X10^3/uL Neut % (Auto) (50-75) % Lymph % (Auto) (25-40) % [place]alfa % (Auto) (3-14) % Eos % (Auto) (2-4) % Baso % (Auto) (0-2) % Neut # (Auto) (9404-0975) /uL Lymph # (Auto) (6611-5475) /uL [place]alfa # (Auto) (0-900) /uL Eos # (Auto) (0-450) /uL Baso # (Auto) (0-100) /uL Sodium (137-145) mmol/L Potassium (3.4-5.1) mmol/L Chloride (98-107) mmol/L Carbon Dioxide (22-32) mmol/L BUN (9-20) mg/dL Creatinine (0.66-1.25) mg/dL Estimated GFR (>60) mL/min BUN/Creatinine Ratio (6-22) Glucose (80-110) mg/dL Calcium (8.4-10.2) mg/dL Total Bilirubin (0.2-1.3) mg/dL AST (17-59) IU/L ALT (<50) IU/L Alkaline Phosphatase (38-126) U/L Total Creatine Kinase (55-170) U/L CK-MB (CK-2) CK-MB (CK-2) Rel Index Troponin I < 0.012 (0.01-0.034) ng/mL Total Protein (6.3-8.2) g/dL Albumin (3.5-5.0) g/dL Globulin (1.7-4.1) g/dL Albumin/Globulin Ratio (1.0-2.8) Lipase (23-300) U/L Prolactin (3.7-17.9) ng/mL Urine Color Yellow Urine Appearance Clear Urine pH 6.0 (4.5-8.0) Ur Specific [place] 1.025 (1.000-1.035) Urine Protein Negative (Negative) Urine Glucose (UA) Negative (Negative) g/dL Urine Ketones Negative (NEGATIVE) Urine Occult Blood Negative (Negative) Urine Nitrate Negative (Negative) Urine Bilirubin Negative (NEGATIVE) Urine Urobilinogen 0.2 (0.2) E.U./dL Ur Leukocyte Esterase Negative (NEGATIVE) Urine RBC None seen (0-5/HPF) Urine WBC None seen (0-5/HPF) Urine Bacteria None seen (None) Ur Culture Indicated? Cult not indicated Micro UA Comment Microscopic normal U Opiates 300ng/mL cut (Negative) Ur Oxycodone Screen (Negative) Urine Methadone Screen (Negative) Ur Barbiturates Screen (Negative) U Tricyclic Antidepress (Negative) Ur Phencyclidine Scrn (Negative) Ur Amphetamines Screen (Negative) U Methamphetamines Scrn (Negative) Ur MDMA Scrn (Ecstasy) (Negative) U Benzodiazepines Scrn (Negative) Urine Cocaine Screen (Negative) U Marijuana (THC) Screen (Negative) Ethyl Alcohol ( - 10) mg/dL SARS-CoV-2 (PCR) Negative (Negative) 10/12/22 Range/Units 09:37 WBC (4.5-11.0) X10^3/uL RBC (4.5-5.9) X10^6/uL Hgb (13.5-17.5) g/dL Hct (41-53) % MCV (80-100) fL MCH (26-34) PG MCHC (30-36) % RDW (11.6-14.8) % Plt Count (150-400) X10^3/uL Neut % (Auto) (50-75) % Lymph % (Auto) (25-40) % [place] % (Auto) (3-14) % Eos % (Auto) (2-4) % Baso % (Auto) (0-2) % Neut # (Auto) (4735-5002) /uL Lymph # (Auto) (9876-0700) /uL [place] # (Auto) (0-900) /uL Eos # (Auto) (0-450) /uL Baso # (Auto) (0-100) /uL Sodium (137-145) mmol/L Potassium (3.4-5.1) mmol/L Chloride (98-107) mmol/L Carbon Dioxide (22-32) mmol/L BUN (9-20) mg/dL Creatinine (0.66-1.25) mg/dL Estimated GFR (>60) mL/min BUN/Creatinine Ratio (6-22) Glucose (80-110) mg/dL Calcium (8.4-10.2) mg/dL Total Bilirubin (0.2-1.3) mg/dL AST (17-59) IU/L ALT (<50) IU/L Alkaline Phosphatase (38-126) U/L Total Creatine Kinase (55-170) U/L CK-MB (CK-2) CK-MB (CK-2) Rel Index Troponin I (0.01-0.034) ng/mL Total Protein (6.3-8.2) g/dL Albumin (3.5-5.0) g/dL Globulin (1.7-4.1) g/dL Albumin/Globulin Ratio (1.0-2.8) Lipase (23-300) U/L Prolactin (3.7-17.9) ng/mL Urine Color Urine Appearance Urine pH (4.5-8.0) Ur Specific [place] (1.000-1.035) Urine Protein (Negative) Urine Glucose (UA) (Negative) g/dL Urine Ketones (NEGATIVE) Urine Occult Blood (Negative) Urine Nitrate (Negative) Urine Bilirubin (NEGATIVE) Urine Urobilinogen (0.2) E.U./dL Ur Leukocyte Esterase (NEGATIVE) Urine RBC (0-5/HPF) Urine WBC (0-5/HPF) Urine Bacteria (None) Ur Culture Indicated? Micro UA Comment U Opiates 300ng/mL cut Negative (Negative) Ur Oxycodone Screen Negative (Negative) Urine Methadone Screen Negative (Negative) Ur Barbiturates Screen Negative (Negative) U Tricyclic Antidepress Negative (Negative) Ur Phencyclidine Scrn Negative (Negative) Ur Amphetamines Screen Negative (Negative) U Methamphetamines Scrn Negative (Negative) Ur MDMA Scrn (Ecstasy) Negative (Negative) U Benzodiazepines Scrn Negative (Negative) Urine Cocaine Screen Negative (Negative) U Marijuana (THC) Screen Positive H (Negative) Ethyl Alcohol ( - 10) mg/dL SARS-CoV-2 (PCR) (Negative) ECG Data Interpretation: Sinus rhythm Ventricular rate 84 Occasional PACs [address]-elevation in V3 no reciprocal changes. No other elevations. EKG 2. Sinus bradycardia rate of 50 9p are 132 QRS is 74 QTC of 409. No acute ST elevation depression noted. Patient did have some change in V3 on EKG #1 From today but not any other contiguous leads that was different from prior on 1 11/04/2022. MDM Narrative Medical decision making narrative: Patient was very difficult to understand and was obviously confused. Review of his medical record shows he presented very similar to this in July this year where he eventually regained consciousness and was alert oriented x4 and was eventually discharged home with diagnosis of a seizure. At that point he was not complaining of chest pain which is what he is complaining of today. His EKG today is very similar to the EKG in July. Labs were ordered. Chest x-ray is unremarkable. CT scan of the head is pending. Care turned over to Dr. Senior to continue to observe and disposition. 10/12/22 [place]: Patient is a 71-year-old male with history of epilepsy, substance abuse and schizophrenia who presents somewhat altered but with complaint of chest pain. Patient seen independently evaluated by myself. He states he did have chest pain earlier today it is not present currently. Initial EKG is reviewed has prior from 08/10/2022 V3 has some change but other leads are all the same no contiguous change. Initial troponin is negative. Patient does appear somewhat altered seems similar to his last visit he during my evaluation notes he may not be taking his seizure medication he states he was told to stop 1 about a week or 2 ago he is awaiting arrival of a new medication but he is unsure what it is or the name. Head CT is negative. CBC shows baseline anemia, normal platelets and white count. Coags are negative, CMP shows a BUN 21, total CK is 43, prolactin is negative. Patient's repeat troponin was sent and is negative. Patient's repeat EKG does not show the change in V3 but no other dynamic changes in contiguous leads. Patient has prior from 08/10/2022 appears similar. Patient received aspirin in the field he had 2 nitro reportedly chest pain got better with 1 nitro but not the 2nd unclear patient recalls this. Patient received load of Keppra here in the department fluids and Zofran. Patient's Toxicology has not been sent he is not give a urine sample but prior only showed THC with similar presentation. COVID is negative. Patient's mentation does seem to be improving. On recheck patient's mentation seems to be improving. He states chest pain was last night currently asymptomatic he does not want to stay for further testing. We discussed meeting with social work but he states he feels safe to return home. He states he is switched physicians and feels like he is more supported he is supposed to be meeting with the psychiatrist and sounds like counselors on a more regular basis. Patient states he does have medications available it appears he picked up his last Keppra prescription in September. Discharge Plan Departure Patient Disposition: Home Clinical Impression: Chest pain, Seizure disorder Activity Restrictions/Additional Instructions: I believe that you did have a seizure earlier today your overnight. I continue to feel better. Please take your medications including your seizure medication regularly. Please return for new changes, severe headaches, confusion or altered mental status, persistent vomiting, new or worsening chest pain or shortness of breath or other new or concerning changes. Prescriptions: No Action aspirin,buffd-calcium carb-mag [Bufferin] 325 MG tablet 325 mg PO Qty: 0 [HTN MED] Qty: 0 [BPH MED] Qty: 0 hydroxyzine pamoate 25 mg Capsule 25 mg PO TID PRN (Reason: Anxiety) risperidone 2 mg Tablet 4 mg PO DAILY fluoxetine 60 mg Tablet 60 mg PO DAILY benztropine 0.5 mg Tablet 0.5 mg PO TID aspirin 81 mg Tablet,Chewable 81 mg PO DAILY meclizine 25 mg tablet 25 mg PO BID PRN (Reason: vertigo) Qty: 10 0RF levetiracetam 500 mg tablet 500 mg PO BID Qty: 60 0RF cephalexin 500 mg capsule 500 mg PO BID Qty: 10 0RF Stand Alone Forms: Patient Portal/API
[2022-10-12 06:17] LABS: Add Manual Diff / Slide Review NO; Basophils Absolute Auto 100 /uL (0-100); Basophils Percent Auto 0.5 % (0-2); Eosinophils Absolute Auto 300 /uL (0-450); Eosinophils Percent Auto 2.4 % (2-4); Hematocrit 39.9 % (41-53); Hemoglobin 13.4 g/dL (13.5-17.5); Lymphocytes Absolute Auto 2600 /uL (1100-4500); Lymphocytes Percent Auto 24.4 % (25-40); Mean Corpuscular HGB Conc 33.7 % (30-36); Mean Corpuscular Hemoglobin 27.9 PG (26-34); Mean Corpuscular Volume 82.9 fL (80-100); Monocytes Absolute Auto 600 /uL (0-900); Monocytes Percent Auto 5.9 % (3-14); Neutrophils Absolute Auto 7000 /uL (1500-7000); Neutrophils Percent Auto 66.8 % (50-75); Platelet Count 356 X10^3/uL (150-400); Red Blood Cell Count 4.81 X10^6/uL (4.5-5.9); Red Cell Distribution Width 15.1 % (11.6-14.8); White Blood Cell Count 10.5 X10^3/uL (4.5-11.0)
--- NOTE | 2022-10-12 06:23 | DI.CT.S_ITS ---
PROCEDURE: CT HEAD/BRAIN WO CON INDICATIONS: AMS TECHNIQUE: Noncontrast 4.5 mm thick angled axial sections acquired from the foramen magnum to the vertex, with coronal and sagittal reformats. For radiation dose reduction, the following was used: automated exposure control, adjustment of mA and/or kV according to patient size. COMPARISON: [facility], CT, CT HEAD/BRAIN WO CON, 04/01/2022, 19:40. FINDINGS: Image quality: Excellent. CSF spaces: Basal cisterns are patent. No extra-axial fluid collections. The ventricles are symmetric in size and shape. Brain: No intracranial bleeds or masses. There is cerebral volume loss for age, with resultant ventricular and sulcal prominence. There are periventricular and deep white matter chronic small vessel ischemic changes. There is intracranial internal carotid artery atherosclerosis. Skull and face: Calvarium and visualized facial bones appear intact, without suspicious lesions. Sinuses: Visualized sinuses and mastoids are clear. IMPRESSION: No evidence acute intracranial abnormality. Comment: Final report is concordant with preliminary interpretation provided by [facility]. Dictated by: Jimi Colunga M.D. on 10/12/2022 at 7:44 Approved by: Jimi Colunga M.D. on 10/12/2022 at 7:44
[2022-10-12 06:27] LABS: Alanine Aminotransferase 19 IU/L (<50); Albumin 3.5 g/dL (3.5-5.0); Albumin Globulin Ratio 0.9 (1.0-2.8); Alkaline Phosphatase 110 U/L (38-126); Aspartate Aminotransferase 28 IU/L (17-59); BUN Creatinine Ratio 27.6 (6-22); Bilirubin Total 0.5 mg/dL (0.2-1.3); Blood Urea Nitrogen 21 mg/dL (9-20); Calcium 8.4 mg/dL (8.4-10.2); Carbon Dioxide 26 mmol/L (22-32); Chloride 107 mmol/L (98-107); Estimated Glomerular Filt Rate > 60 mL/min (>60); Ethanol (ETOH) < 10 mg/dL; Glucose 90 mg/dL (80-110); HEMOLYSIS < 15 (0-50); Lipase 134 U/L (23-300); Sodium 137 mmol/L (137-145); Total Protein 7.5 g/dL (6.3-8.2)
[2022-10-12 06:43] LABS: Prolactin 16.8 ng/mL (3.7-17.9)
[2022-10-12] MEDS: levETIRAcetam 500 MG in SODIUM CHLORIDE 0.9% 100 ML 420 MG IV (06:49)
[2022-10-12] MEDS: ONDANSETRON 4 MG/2 ML INJ IV (06:49)
[2022-10-12] MEDS: SODIUM CHLORIDE 0.9% 1,000 ML 125 ML IV (06:50)
[2022-10-12 07:01] LABS: Creatine Kinase 43 U/L (55-170)
[2022-10-12 07:14] LABS: Troponin I < 0.012 ng/mL (0.01-0.034)
[2022-10-12 07:15] LABS: COVID19 -Nasal RAPID Negative (Negative)
--- NOTE | 2022-10-12 07:19 | PC.NURSE ---
Pt opens eyes spontaneously, alert and oriented x3/3, speaks in mumbled words. States he felt chest tightness and SOB this morning, I'm scared, I pushed my button because I was scared. Pt difficult to articulate. Pt breathing even and unlabored, no acute distress noted at this time. Updated pt on plan of care.
[2022-10-12 08:28] LABS: Troponin I < 0.012 ng/mL (0.01-0.034)
[2022-10-12 09:45] LABS: Appearance Urine UA CLEAR; Bilirubin Urine UA NEGATIVE (NEGATIVE); Color Urine UA YELLOW; Glucose Urine UA NEGATIVE (Negative); Ketones Urine UA NEGATIVE (NEGATIVE); Leukocyte Esterase Urine UA NEGATIVE (NEGATIVE); Nitrite Urine UA NEGATIVE (Negative); Occult Blood Urine UA NEGATIVE (Negative); Protein Urine UA NEGATIVE (Negative); Specific Gravity Urine UA 1.025 (1.000-1.035); Urobilinogen Urine UA 0.2 E.U./dL (0.2)
[2022-10-12 09:50] LABS: UR Morphine/Opiate cutoff 300 Negative (Negative); Ur Creatinine Normal (Normal); Ur Specific Gravity Normal (Normal); Urine Amphetamines Negative (Negative); Urine Barbiturates Negative (Negative); Urine Benzodiazepines Negative (Negative); Urine Cocaine Negative (Negative); Urine MDMA Negative (Negative); Urine Methadone Negative (Negative); Urine Methamphetamines Negative (Negative); Urine Oxycodone Negative (Negative); Urine Phencyclidine Negative (Negative); Urine Tetrahydrocannabinol Positive (Negative); Urine Tricyclic Antidepressant Negative (Negative); Urine pH Normal (Normal)
[2022-10-12 09:52] LABS: RBC Urine None Seen (0-5/HPF); WBC Urine None Seen (0-5/HPF)
[2022-10-12 09:53] LABS: Bacteria Urine None Seen; Culture Indicated Urine Cult Not Indicated; Urine Comments Microscopic Normal
--- NOTE | 2022-10-12 10:59 | PC.NURSE ---
Pt speaking in clear and coherent sentences, Dr. Senior now at bedside.
--- NOTE | 2022-10-12 11:39 | PC.NURSE ---
Pt reports he does not have funds to pay for a taxi home to [place]. Received call from a community nuclear design engineer who states he is very familiar with pt and has assisted him in the past, states he will call back with ride information for pt.
== END 2022-10-12 12:00 | disposition home or self-care (01) ==
PROVIDERS: Emergency Medicine; Emergency Provider Emergency Medicine
DX: R07.9 Chest pain, unspecified (principal); G40.909 Epilepsy, unspecified, not intractable, without status epilepticus; Z20.822 Contact with and (suspected) exposure to COVID-19
CPT/HCPCS: 70450; 71045; 80053; 80305; 80320; 81001; 82550; 83690; 84146; 84484; 85025; 87070; 87205; 87635; 93005; 96365; 96375; 99284; C9803; J1953; J2405

== ENCOUNTER 2022-10-20 16:16 | Emergency (ER) | payer MEDICARE, MEDICAID, SELFPAY ==
[2022-10-20] VITALS (9 sets, daily range): BP systolic 140–169; BP diastolic 63–83; PULSE 74–83; RESP 16–22; TEMP 36.7; O2SAT 95–98
--- NOTE | 2022-10-20 16:26 | DI.CT.S_ITS ---
PROCEDURE: CT ABDOMEN PELVIS W CON INDICATIONS: tympanic acute abdomen R side pain TECHNIQUE: After the administration of intravenous contrast, axial sections acquired from the lung bases to the pubic symphysis. Coronal and sagittal reformats were performed. For radiation dose reduction, the following was used: automated exposure control, adjustment of mA and/or kV according to patient size. COMPARISON: None. FINDINGS: Image quality: Excellent. Lung bases: Mild bibasilar atelectasis Heart size is normal. Solid organs: Liver: The liver has no mass or intrahepatic biliary ductal dilatation. The portal vein and hepatic veins are patent. Biliary: The gallbladder has no gallstones, pericholecystic fluid, gallbladder wall thickening, or surrounding inflammatory change. Pancreas: The pancreas has no mass or ductal dilatation. There is no surrounding inflammation. Spleen: Normal size. There are no masses. Adrenals: No hypertrophy or nodules. Kidneys: Bilateral hydronephrosis. Massive dilatation of the bladder. No solid mass. No cystic mass. Peritoneum and bowel: The distal esophagus and stomach are normal. The small bowel has a normal caliber and appearance. The large bowel has increased stool throughout.. The appendix is normal. No free fluid or air. Nodes and vessels: No retroperitoneal or mesenteric adenopathy by size criteria. The aorta has atherosclerosis with no aneurysmal dilatation. Miscellaneous: No abdominal wall mass or hernia. PELVIS: Genitourinary: There is massive dilation of the bladder measuring 16 x 12 x 22 cm. The prostate is enlarged. Bones: Degenerative changes with no focal abnormality. No vertebral body compression fractures. IMPRESSION: Massive dilation of the bladder, likely due to urethral outlet syndrome with bilateral hydronephrosis. Recommend decompression with a Garcia. Dictated by: Goyo Huddleston M.D. on 10/20/2022 at 17:48 Approved by: Goyo Huddleston M.D. on 10/20/2022 at 17:52
--- NOTE | 2022-10-20 16:26 | ED.ABDPAIN ---
HPI - Abdominal Pain <Fabiana Lopez PA-C - Last Filed: 10/20/22 20:10> General Chief Complaint: Abdominal Pain Stated Complaint: Abd pain (R) side Time Seen by Provider: 10/20/22 16:20 History of Present Illness HPI narrative: 71 yo male [place] [facility], with history of chest pain, previous cardiac arrest, seizure disorder, diabetes, schizophrenia presents with concern for abdominal pain 04/26 began this morning. Patient states he had breakfast around 6:00 a.m. took a shower and then shortly thereafter he developed sudden onset of severe unrelenting right-sided abdominal pain. He states he has not had pain like this in the past. He states he is had some nausea but no vomiting, he states he has been having bowel movements but they have been smaller than normal, last 1 this morning. Was feeling his normal self yesterday and last night, last ate this morning for breakfast around 6:00 a.m. denies fevers, chills, dysuria, diarrhea or other symptoms. Related Data Home Medications Medication Instructions Recorded Confirmed [BPH MED] ##0 11/29/16 [HTN MED] ##0 11/29/16 aspirin,buffered (calcium 325 mg PO ##0 11/29/16 carbonate-magnesium) 325 mg tablet (Bufferin) aspirin 81 mg chewable tablet 81 mg PO DAILY 11/19/17 03/15/18 benztropine 0.5 mg tablet 0.5 mg PO TID 11/19/17 03/15/18 fluoxetine 60 mg tablet 60 mg PO DAILY 11/19/17 03/15/18 hydroxyzine pamoate 25 mg capsule 25 mg PO TID PRN Anxiety 11/19/17 03/15/18 risperidone 2 mg tablet 4 mg PO DAILY 11/19/17 03/15/18 Previous Rx's Medication Instructions Recorded meclizine 25 mg tablet 25 mg PO BID PRN vertigo #10 tabs 11/19/17 cephalexin 500 mg capsule 500 mg PO BID #10 caps 04/02/22 levetiracetam 500 mg tablet 500 mg PO BID #60 tabs 08/10/22 tamsulosin 0.4 mg capsule (Flomax) 0.4 mg PO DAILY Urinary retention 10/20/22 20 days #20 caps Allergies Allergy/AdvReac Type Severity Reaction Status Date / Time hydrocodone [HYDROCODONE] Allergy Unknown Verified 10/20/22 16:25 Sulfa (Sulfonamide Allergy Unknown Verified 10/20/22 16:25 Antibiotics) [SULFA (SULFONAMIDE ANTIBIOTICS)] Review of Systems <Fabiana Lopez PA-C - Last Filed: 10/20/22 20:10> Review of Systems Narrative: See HPI, patient has schizophrenia and is a difficult interview also edentulous and hard to understand. Patient History <Fabiana Lopez PA-C - Last Filed: 10/20/22 20:10> Medical History Anemia Epilepsy Psychoactive substance abuse Schizophrenia Tobacco abuse Surgical History No significant past surgical history No significant past surgical history Social History household members: none lives independently: Yes occupational status: unemployed Smoking Status: Current some day smoker alcohol intake: never substance use type: does not use Smoking Status: Current some day smoker tobacco type: cigarettes alcohol intake frequency: 0-2 drinks per day Substance Use Type: does not use Exam <Fabiana Lopez PA-C - Last Filed: 10/20/22 20:10> Narrative Exam Narrative: GENERAL: 71 year old patient appears stated age. Very slim patient, in severe distress. HEAD: Atraumatic. Normocephalic. EYES: Pupils equal round and reactive. Extraocular motions intact. No scleral icterus. No injection or drainage. ENT: Nose without bleeding, purulent drainage. Throat without erythema, tonsillar hypertrophy or exudate. Airway patent. NECK: Trachea midline. Non tender CARDIOVASCULAR: Regular rate and rhythm without murmurs, gallops, or rubs. RESPIRATORY: LS are slighlty course. Breath sounds equal bilaterally. No wheezes, rales, or rhonchi. GASTROINTESTINAL: Abdomen distended/borderline tympanic throughout, patient is very tender all quadrants, most tender right upper and right lower quadrant. Patient has excruciating pain with light palpation.. EXTREMITIES: No edema or joint tenderness. BACK: Nontender without deformity or crepitance. No flank tenderness. NEURO: AOx3. SKIN: No rash or erythema of visible areas Initial Vital Signs Initial Vital Signs: Vital Signs Temperature 98.0 F 10/20/22 16:20 Pulse Rate 83 10/20/22 16:20 Respiratory Rate 16 10/20/22 16:20 Blood Pressure 169/80 H 10/20/22 16:20 Pulse Oximetry 98 10/20/22 16:20 Oxygen Delivery Method Room Air 10/20/22 16:20 <South Curry DO - Last Filed: 10/21/22 03:04> Initial Vital Signs Initial Vital Signs: Vital Signs Temperature 98.0 F 10/20/22 16:20 Pulse Rate 83 10/20/22 16:20 Respiratory Rate 16 10/20/22 16:20 Blood Pressure 169/80 H 10/20/22 16:20 Pulse Oximetry 98 10/20/22 16:20 Oxygen Delivery Method Room Air 10/20/22 16:20 Course <Fabiana Lopez PA-C - Last Filed: 10/20/22 20:10> Course Course Narrative: Bladder scan did show patient had over 1000 mL in his bladder, straight cath to remove this. Patient did pee some while in CT but clearly retaining urine. 1741 Straight cath was unsuccessful, discussed with RN and she is willing to try placing a regular catheter or coude with Glydo to help with discomfort, additional fentanyl also ordered. 1747 Did discuss this patient with Dr. Curry, he feels that his pain has improved with the resolution of his very full bladder, reasonable to send him out with some Flomax and close follow-up with Urology with the catheter in place. 1924 Orders Ordered: Discontinued Medications Fentanyl (Fentanyl 100 Mcg/2 Ml Inj) 50 mcg IV NOW ONE Stop: 10/20/22 16:27 Last Admin: 10/20/22 16:40 Dose: 50 mcg Documented By: WAYNE Fentanyl (Fentanyl 100 Mcg/2 Ml Inj) 50 mcg IV NOW ONE Stop: 10/20/22 17:44 Last Admin: 10/20/22 17:51 Dose: 50 mcg Documented By: WAYNE Sodium Chloride (Normal Saline 0.9%) 1,000 mls @ 125 mls/hr IV CONT RITA Last Infusion: 10/20/22 20:35 Dose: 0 mls/hr Documented By: Infusion: 10/20/22 20:35 Dose: 0 mls/hr Documented By: Admin: 10/20/22 16:40 Dose: 125 mls/hr Documented By: WAYNE Lidocaine HCl (Lidocaine 2% (Glydo) 6 Ml Gel) 6 ml TOP NOW ONE Stop: 10/20/22 17:45 Last Admin: 10/20/22 17:52 Dose: 6 ml Documented By: WAYNE Ondansetron HCl (Ondansetron 4 Mg/2 Ml Inj) 4 mg IV NOW ONE Stop: 10/20/22 16:27 Last Admin: 10/20/22 16:40 Dose: 4 mg Documented By: WAYNE Vital Signs Vital signs: Vital Signs - 8 hr 10/20/22 19:30 10/20/22 19:30 10/20/22 20:42 Pulse Rate 78 74 Respiratory Rate 16 20 Blood Pressure 151/68 H 142/65 H Pulse Oximetry 98 97 Oxygen Delivery Method Room Air 10/20/22 20:00 10/20/22 20:00 Pulse Rate 76 Respiratory Rate 17 Blood Pressure 141/63 H Pulse Oximetry 98 Oxygen Delivery Method <South Curry DO - Last Filed: 10/21/22 03:04> Orders Ordered: Discontinued Medications Fentanyl (Fentanyl 100 Mcg/2 Ml Inj) 50 mcg IV NOW ONE Stop: 10/20/22 16:27 Last Admin: 10/20/22 16:40 Dose: 50 mcg Documented By: WAYNE Fentanyl (Fentanyl 100 Mcg/2 Ml Inj) 50 mcg IV NOW ONE Stop: 10/20/22 17:44 Last Admin: 10/20/22 17:51 Dose: 50 mcg Documented By: WAYNE Sodium Chloride (Normal Saline 0.9%) 1,000 mls @ 125 mls/hr IV CONT RITA Last Infusion: 10/20/22 20:35 Dose: 0 mls/hr Documented By: Infusion: 10/20/22 20:35 Dose: 0 mls/hr Documented By: Admin: 10/20/22 16:40 Dose: 125 mls/hr Documented By: WAYNE Lidocaine HCl (Lidocaine 2% (Glydo) 6 Ml Gel) 6 ml TOP NOW ONE Stop: 10/20/22 17:45 Last Admin: 10/20/22 17:52 Dose: 6 ml Documented By: WAYEN Ondansetron HCl (Ondansetron 4 Mg/2 Ml Inj) 4 mg IV NOW ONE Stop: 10/20/22 16:27 Last Admin: 10/20/22 16:40 Dose: 4 mg Documented By: WAYNE Vital Signs Vital signs: Vital Signs - 8 hr 10/20/22 19:30 10/20/22 19:30 10/20/22 20:42 Pulse Rate 78 74 Respiratory Rate 16 20 Blood Pressure 151/68 H 142/65 H Pulse Oximetry 98 97 Oxygen Delivery Method Room Air 10/20/22 20:00 10/20/22 20:00 Pulse Rate 76 Respiratory Rate 17 Blood Pressure 141/63 H Pulse Oximetry 98 Oxygen Delivery Method MDM - Abdominal Pain <Fabiana Lopez PA-C - Last Filed: 10/20/22 20:10> Differential Diagnosis Differential diagnosis: Likely abdominal pain, acute appendicitis, calculus of kidney, constipation, diverticulitis, pancreatitis, small bowel obstruction and other (Acute urinary retention, prostate enlargement) Medical Records Attestation: I reviewed the patient's medical records. Lab Data Attestation: I reviewed the patient's lab results. 10/20/22 16:40 10/20/22 16:40 Labs: Lab Results 10/20/22 10/20/22 10/20/22 Range/Units 16:40 16:40 16:53 WBC 12.2 H (4.5-11.0) X10^3/uL RBC 4.72 (4.5-5.9) X10^6/uL Hgb 13.0 L (13.5-17.5) g/dL Hct 39.1 L (41-53) % MCV 82.8 (80-100) fL MCH 27.5 (26-34) PG MCHC 33.2 (30-36) % RDW 15.6 H (11.6-14.8) % Plt Count 346 (150-400) X10^3/uL Neut % (Auto) 88.1 H (50-75) % Lymph % (Auto) 6.5 L (25-40) % Beadle % (Auto) 5.0 (3-14) % Eos % (Auto) 0.1 L (2-4) % Baso % (Auto) 0.3 (0-2) % Neut # (Auto) 82297 H (5660-1679) /uL Lymph # (Auto) 800 L (1040-9219) /uL Beadle # (Auto) 600 (0-900) /uL Eos # (Auto) 0 (0-450) /uL Baso # (Auto) 0 (0-100) /uL Sodium 137 (137-145) mmol/L Potassium 4.6 (3.4-5.1) mmol/L Chloride 102 (98-107) mmol/L Carbon Dioxide 24 (22-32) mmol/L BUN 63 H (9-20) mg/dL Creatinine 1.46 H (0.66-1.25) mg/dL Estimated GFR 52 L (>60) mL/min BUN/Creatinine Ratio 43.2 H (6-22) Glucose 137 H (80-110) mg/dL Calcium 9.6 (8.4-10.2) mg/dL Total Bilirubin 1.4 H (0.2-1.3) mg/dL AST 87 H (17-59) IU/L ALT 61 H (<50) IU/L Alkaline Phosphatase 119 (38-126) U/L Ammonia < 9 L (9-30) umol/L Total Protein 8.5 H (6.3-8.2) g/dL Albumin 4.2 (3.5-5.0) g/dL Globulin 4.3 H (1.7-4.1) g/dL Albumin/Globulin Ratio 1.0 (1.0-2.8) Lipase 155 (23-300) U/L Urine RBC (0-5/HPF) Urine WBC (0-5/HPF) Ur Squamous Epith Cells (0-5/HPF) Urine Bacteria (None) Ur Culture Indicated? SARS-CoV-2 (PCR) (Negative) 10/20/22 10/20/22 Range/Units 17:20 17:30 WBC (4.5-11.0) X10^3/uL RBC (4.5-5.9) X10^6/uL Hgb (13.5-17.5) g/dL Hct (41-53) % MCV (80-100) fL MCH (26-34) PG MCHC (30-36) % RDW (11.6-14.8) % Plt Count (150-400) X10^3/uL Neut % (Auto) (50-75) % Lymph % (Auto) (25-40) % Beadle % (Auto) (3-14) % Eos % (Auto) (2-4) % Baso % (Auto) (0-2) % Neut # (Auto) (5228-1897) /uL Lymph # (Auto) (0611-1292) /uL Beadle # (Auto) (0-900) /uL Eos # (Auto) (0-450) /uL Baso # (Auto) (0-100) /uL Sodium (137-145) mmol/L Potassium (3.4-5.1) mmol/L Chloride (98-107) mmol/L Carbon Dioxide (22-32) mmol/L BUN (9-20) mg/dL Creatinine (0.66-1.25) mg/dL Estimated GFR (>60) mL/min BUN/Creatinine Ratio (6-22) Glucose (80-110) mg/dL Calcium (8.4-10.2) mg/dL Total Bilirubin (0.2-1.3) mg/dL AST (17-59) IU/L ALT (<50) IU/L Alkaline Phosphatase (38-126) U/L Ammonia (9-30) umol/L Total Protein (6.3-8.2) g/dL Albumin (3.5-5.0) g/dL Globulin (1.7-4.1) g/dL Albumin/Globulin Ratio (1.0-2.8) Lipase (23-300) U/L Urine RBC 10-30/hpf H (0-5/HPF) Urine WBC 1-5/hpf (0-5/HPF) Ur Squamous Epith Cells 1-5 /hpf (0-5/HPF) Urine Bacteria None seen (None) Ur Culture Indicated? Cult not indicated SARS-CoV-2 (PCR) Negative (Negative) Point of care testing: Urine Dip Bedside Urine Glucose Negative Bedside Urine Bilirubin - Negative Bedside Urine Ketone - Negative Urine Specific Pullman 1.025 Bedside Urine Occult Blood ++ Bedside Urine pH 5.5 Bedside Urine Protein - Negative Bedside Urine Urobilinogen - Negative Bedside Urine Nitrite - Negative Bedside Urine Leukocytes - Negative Esterase Imaging Data CT scan - abdomen/pelvis: My Impression: Agree with radiologist's interpretation Radiologist's Impression: [address] [address] [address] Scan Report Signed Patient: Bart Adams V MR#: [id number] : 1950 Acct:[id number] Age/Sex: 71 / M Date of Service: 10/20/22 Loc: ED Accession Number: [id number] ?? Procedure: CT abdomen pelvis w con Ordering Provider: Fabiana Lopez P.A-C PROCEDURE:? CT ABDOMEN PELVIS W CON ? INDICATIONS:? tympanic acute abdomen R side pain ? TECHNIQUE:? After the administration of intravenous contrast, axial sections acquired from the lung bases to the pubic symphysis.? Coronal and sagittal reformats were performed.? For radiation dose reduction, the following was used:? automated exposure control, adjustment of mA and/or kV according to patient size.? ? COMPARISON:? None. ? FINDINGS: Image quality:? Excellent.? ? Lung bases:? Mild bibasilar atelectasis Heart size is normal. ? Solid organs:? Liver: The liver has no mass or intrahepatic biliary ductal dilatation. The portal vein and hepatic veins are patent. Biliary: The gallbladder has no gallstones, pericholecystic fluid, gallbladder wall thickening, or surrounding inflammatory change. Pancreas: The pancreas has no mass or ductal dilatation. There is no surrounding inflammation. Spleen: Normal size. There are no masses. Adrenals: No hypertrophy or nodules. Kidneys:? Bilateral hydronephrosis.? Massive dilatation of the bladder.? No solid mass. No cystic mass. ? Peritoneum and bowel:? The distal esophagus and stomach are normal.? The small bowel has a normal caliber and appearance. The large bowel has increased stool throughout..? The appendix is normal. No free fluid or air.? ? Nodes and vessels:? No retroperitoneal or mesenteric adenopathy by size criteria.? The aorta has atherosclerosis with no aneurysmal dilatation.? ? Miscellaneous:? No abdominal wall mass or hernia. ? PELVIS:? Genitourinary:? There is massive dilation of the bladder measuring 16 x 12 x 22 cm.? The prostate is enlarged. ? Bones:? Degenerative changes with no focal abnormality.? No vertebral body compression fractures.? ? IMPRESSION:? Massive dilation of the bladder, likely due to urethral outlet syndrome with bilateral hydronephrosis.? Recommend decompression with a Garcia. ? ? Dictated by: Goyo Huddleston M.D. on 10/20/2022 at 17:48 ? ? Approved by: Goyo Huddleston M.D. on 10/20/2022 at 17:52?? 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 this morning for patient, shortly after he ate breakfast. Exam is concerning for a distended very tender abdomen more prominent on the right, labs are fairly unremarkable, CT is concerning for it extremely distended bladder patient was also bladder scanned prior to results of CT returning, and noted to have greater than 1000 mL in his bladder initially a straight catheter was unsuccessful but patient was successfully catheterized with a Garcia draining greater than 1200 mL in the 1st 30-[address] was notable for hydronephrosis bilaterally 2nd to urinary retention. Patient did have 10/10 pain on presentation which was improved with fentanyl. Recurrence of pain with attempted catheterization and prior to cathing also improved with fentanyl. Patient also had reduction in his pain after successful drainage of his bladder. UA is not suggestive of infection. Ultimately patient is discharged to home with catheter in place, prescription for Flomax, advised to follow-up with urology as soon as possible. Return precautions provided, follow-up plan discussed, all questions answered. <South Curry, DO - Last Filed: 10/21/22 03:04> Lab Data Labs: Lab Results 10/20/22 10/20/22 10/20/22 Range/Units 16:40 16:40 16:53 WBC 12.2 H (4.5-11.0) X10^3/uL RBC 4.72 (4.5-5.9) X10^6/uL Hgb 13.0 L (13.5-17.5) g/dL Hct 39.1 L (41-53) % MCV 82.8 (80-100) fL MCH 27.5 (26-34) PG MCHC 33.2 (30-36) % RDW 15.6 H (11.6-14.8) % Plt Count 346 (150-400) X10^3/uL Neut % (Auto) 88.1 H (50-75) % Lymph % (Auto) 6.5 L (25-40) % Beadle % (Auto) 5.0 (3-14) % Eos % (Auto) 0.1 L (2-4) % Baso % (Auto) 0.3 (0-2) % Neut # (Auto) 14695 H (1588-2334) /uL Lymph # (Auto) 800 L (6913-8703) /uL Beadle # (Auto) 600 (0-900) /uL Eos # (Auto) 0 (0-450) /uL Baso # (Auto) 0 (0-100) /uL Sodium 137 (137-145) mmol/L Potassium 4.6 (3.4-5.1) mmol/L Chloride 102 (98-107) mmol/L Carbon Dioxide 24 (22-32) mmol/L BUN 63 H (9-20) mg/dL Creatinine 1.46 H (0.66-1.25) mg/dL Estimated GFR 52 L (>60) mL/min BUN/Creatinine Ratio 43.2 H (6-22) Glucose 137 H (80-110) mg/dL Calcium 9.6 (8.4-10.2) mg/dL Total Bilirubin 1.4 H (0.2-1.3) mg/dL AST 87 H (17-59) IU/L ALT 61 H (<50) IU/L Alkaline Phosphatase 119 (38-126) U/L Ammonia < 9 L (9-30) umol/L Total Protein 8.5 H (6.3-8.2) g/dL Albumin 4.2 (3.5-5.0) g/dL Globulin 4.3 H (1.7-4.1) g/dL Albumin/Globulin Ratio 1.0 (1.0-2.8) Lipase 155 (23-300) U/L Urine RBC (0-5/HPF) Urine WBC (0-5/HPF) Ur Squamous Epith Cells (0-5/HPF) Urine Bacteria (None) Ur Culture Indicated? SARS-CoV-2 (PCR) (Negative) 10/20/22 10/20/22 Range/Units 17:20 17:30 WBC (4.5-11.0) X10^3/uL RBC (4.5-5.9) X10^6/uL Hgb (13.5-17.5) g/dL Hct (41-53) % MCV (80-100) fL MCH (26-34) PG MCHC (30-36) % RDW (11.6-14.8) % Plt Count (150-400) X10^3/uL Neut % (Auto) (50-75) % Lymph % (Auto) (25-40) % Beadle % (Auto) (3-14) % Eos % (Auto) (2-4) % Baso % (Auto) (0-2) % Neut # (Auto) (4280-1918) /uL Lymph # (Auto) (3752-7179) /uL Beadle # (Auto) (0-900) /uL Eos # (Auto) (0-450) /uL Baso # (Auto) (0-100) /uL Sodium (137-145) mmol/L Potassium (3.4-5.1) mmol/L Chloride (98-107) mmol/L Carbon Dioxide (22-32) mmol/L BUN (9-20) mg/dL Creatinine (0.66-1.25) mg/dL Estimated GFR (>60) mL/min BUN/Creatinine Ratio (6-22) Glucose (80-110) mg/dL Calcium (8.4-10.2) mg/dL Total Bilirubin (0.2-1.3) mg/dL AST (17-59) IU/L ALT (<50) IU/L Alkaline Phosphatase (38-126) U/L Ammonia (9-30) umol/L Total Protein (6.3-8.2) g/dL Albumin (3.5-5.0) g/dL Globulin (1.7-4.1) g/dL Albumin/Globulin Ratio (1.0-2.8) Lipase (23-300) U/L Urine RBC 10-30/hpf H (0-5/HPF) Urine WBC 1-5/hpf (0-5/HPF) Ur Squamous Epith Cells 1-5 /hpf (0-5/HPF) Urine Bacteria None seen (None) Ur Culture Indicated? Cult not indicated SARS-CoV-2 (PCR) Negative (Negative) Point of care testing: Urine Dip Bedside Urine Glucose Negative Bedside Urine Bilirubin - Negative Bedside Urine Ketone - Negative Urine Specific Pullman 1.025 Bedside Urine Occult Blood ++ Bedside Urine pH 5.5 Bedside Urine Protein - Negative Bedside Urine Urobilinogen - Negative Bedside Urine Nitrite - Negative Bedside Urine Leukocytes - Negative Esterase Discharge Plan Departure Patient Disposition: Home Clinical Impression: Acute urinary retention, Abdominal pain, Enlarged prostate Instructions: DI for Urinary Retention in Men Activity Restrictions/Additional Instructions: Thank you for letting us be part of your care today in the emergency department. You came in by ambulance with concern for severe abdominal pain that began this morning, we did labs and imaging and found that you had a very enlarged bladder with about a L and a half of fluid retained in it. We had to place a Garcia catheter in order to get the bladder fluid out and this will need to stay in place because you have a problem with urinary retention and not able to pee this is likely because you have an enlarged prostate. You will need to follow-up with urology in the next few days and get seen as an outpatient in clinic. I am prescribing medication for you called Flomax that should help to move things through her system and decrease your urinary retention. I recommend Tylenol and ibuprofen for pain. There is no evidence of an emergent or life threatening illness at this time, but follow up with your doctor in 1-2 days is recommended nonetheless to continue to rule out serious underlying causes of your symptoms. Please call the office for an appointment. Please return to the Emergency Department for any worsening or persistent symptoms. Please take medications as directed. Prescriptions: New tamsulosin [Flomax] 0.4 mg capsule 0.4 mg PO DAILY 20 Days Qty: 20 0RF No Action aspirin,buffd-calcium carb-mag [Bufferin] 325 MG tablet 325 mg PO Qty: 0 [HTN MED] Qty: 0 [BPH MED] Qty: 0 hydroxyzine pamoate 25 mg Capsule 25 mg PO TID PRN (Reason: Anxiety) risperidone 2 mg Tablet 4 mg PO DAILY fluoxetine 60 mg Tablet 60 mg PO DAILY benztropine 0.5 mg Tablet 0.5 mg PO TID aspirin 81 mg Tablet,Chewable 81 mg PO DAILY meclizine 25 mg tablet 25 mg PO BID PRN (Reason: vertigo) Qty: 10 0RF levetiracetam 500 mg tablet 500 mg PO BID Qty: 60 0RF cephalexin 500 mg capsule 500 mg PO BID Qty: 10 0RF Referrals: Ariadna Sun MD [Physician] - Stand Alone Forms: Patient Portal/API <South Curry DO - Last Filed: 10/21/22 03:04> Cosign ED Attending Cosignature Attestation: I was immediately available in the department for consultation. This documentation has been reviewed and I agree with assessment and plan. Supervised by South Curry DO
[2022-10-20] MEDS: SODIUM CHLORIDE 0.9% 1,000 ML 125 ML IV (16:40)
[2022-10-20] MEDS: fentaNYL 100 MCG/2 ML INJ 50 MCG IV ×2 (16:40→17:51)
[2022-10-20] MEDS: ONDANSETRON 4 MG/2 ML INJ IV (16:40)
[2022-10-20 16:45] LABS: Add Manual Diff / Slide Review NO; Basophils Absolute Auto 0 /uL (0-100); Basophils Percent Auto 0.3 % (0-2); Eosinophils Absolute Auto 0 /uL (0-450); Eosinophils Percent Auto 0.1 % (2-4); Hematocrit 39.1 % (41-53); Lymphocytes Absolute Auto 800 /uL (1100-4500); Lymphocytes Percent Auto 6.5 % (25-40); Mean Corpuscular HGB Conc 33.2 % (30-36); Mean Corpuscular Hemoglobin 27.5 PG (26-34); Mean Corpuscular Volume 82.8 fL (80-100); Monocytes Absolute Auto 600 /uL (0-900); Neutrophils Absolute Auto 10800 /uL (1500-7000); Neutrophils Percent Auto 88.1 % (50-75); Platelet Count 346 X10^3/uL (150-400); Red Blood Cell Count 4.72 X10^6/uL (4.5-5.9); Red Cell Distribution Width 15.6 % (11.6-14.8); White Blood Cell Count 12.2 X10^3/uL (4.5-11.0)
[2022-10-20 16:55] LABS: Alanine Aminotransferase 61 IU/L (<50); Albumin 4.2 g/dL (3.5-5.0); Alkaline Phosphatase 119 U/L (38-126); Aspartate Aminotransferase 87 IU/L (17-59); BUN Creatinine Ratio 43.2 (6-22); Bilirubin Total 1.4 mg/dL (0.2-1.3); Blood Urea Nitrogen 63 mg/dL (9-20); Calcium 9.6 mg/dL (8.4-10.2); Carbon Dioxide 24 mmol/L (22-32); Chloride 102 mmol/L (98-107); Estimated Glomerular Filt Rate 52 mL/min (>60); Globulin 4.3 g/dL (1.7-4.1); Glucose 137 mg/dL (80-110); HEMOLYSIS < 15 (0-50); Lipase 155 U/L (23-300); Potassium 4.6 mmol/L (3.4-5.1); Sodium 137 mmol/L (137-145); Total Protein 8.5 g/dL (6.3-8.2)
[2022-10-20 17:16] LABS: Ammonia (NH3) < 9 umol/L (9-30)
[2022-10-20] MEDS: LIDOCAINE 2% (GLYDO) 6 ML GEL TOP (17:52)
[2022-10-20 17:54] LABS: RBC Urine 10-30/HPF (0-5/HPF)
[2022-10-20 17:55] LABS: Bacteria Urine None Seen; Culture Indicated Urine Cult Not Indicated; Squamous Epithelial Cell Urine 1-5 /HPF (0-5/HPF); WBC Urine 1-5/HPF (0-5/HPF)
--- NOTE | 2022-10-20 18:31 | PC.NURSE ---
Placed coude catheter as per physicians order. Patient was bladder scanned for over 1000 ml. After catheterization urine output at this time has been 1000 ml and catheter still draining moderately clear urine. Patient is much relieved and has no further pain and abdomen is now completely flat.
[2022-10-20 18:46] LABS: COVID19 -Nasal RAPID Negative (Negative)
== END 2022-10-20 20:43 | disposition home or self-care (01) ==
PROVIDERS: Emergency Provider Student in an Organized Health Care Education/Training Program
DX: N40.1 Benign prostatic hyperplasia with lower urinary tract symptoms (principal); R33.8 Other retention of urine; R10.9 Unspecified abdominal pain; Z20.822 Contact with and (suspected) exposure to COVID-19
CPT/HCPCS: 36415; 74177; 80053; 81003; 81015; 82140; 83690; 85025; 87086; 87635; 93005; 96361; 96374; 96375; 96376; 99284; C9803; J2405; J3010; Q9967

== ENCOUNTER 2022-10-23 09:16 | Emergency (ER) | payer MEDICARE, MEDICAID, SELFPAY ==
--- NOTE | 2022-10-23 09:22 | DI.CT.S_ITS ---
PROCEDURE: CT KIDNEY URETER BLADDER (KUB) INDICATIONS: abd/flank pain, hematuria, catheter in place. TECHNIQUE: Axial sections were acquired from the lung bases to the pubic symphysis. Coronal and sagittal reformats were performed. For radiation dose reduction, the following was used: automated exposure control, adjustment of mA and/or kV according to patient size. COMPARISON: [facility], CT, CT ABDOMEN PELVIS W CON, 10/20/2022, 17:15. [facility], CR, XR CHEST 1 VIEW, 10/21/2022, 17:41. FINDINGS: Image quality: Excellent. Lung bases: Fibrotic changes of the lung bases. There is a more focal opacity at the medial aspect of the right lung base. This is progressed from comparison.. Heart: Mild coronary vascular calcifications. URINARY: Right Kidney: No stones or hydronephrosis. Right Ureter: No hydroureter. Left Kidney: No stones or hydronephrosis. Left Ureter: No hydroureter. Bladder: Decompressed by intraluminal Garcia catheter. No stones. Questionable wall thickening given decompression. ABDOMEN: Liver: Unremarkable. Gallbladder: Unremarkable Biliary ducts: Unremarkable. Pancreas: Unremarkable. Spleen: Unremarkable. Adrenal Glands: Unremarkable. Stomach and Bowel: Stomach, small bowel loops, and colon are without evidence of obstruction. No acute abnormality. There is moderate to marked stool burden. Peritoneum: No abnormal intraperitoneal fluid. No free air. Ventral Wall: No hernia. Abdominal Nodes: No enlarged retroperitoneal or mesenteric lymph nodes. Vessels: Aorta and inferior vena cava are normal in size. Diffuse vascular calcifications. PELVIS: Pelvic Organs: Unremarkable. Pelvic Nodes: Unremarkable. Miscellaneous: No inguinal hernias are seen. Bones: No acute abnormality. Anterolisthesis of L4 on L5, grade 1. IMPRESSION: Interval decompression of the bladder with intraluminal Garcia catheter. There is resolution of the previously noted hydroureteronephrosis. Questionable wall thickening of the urinary bladder given nondistention. Prostatomegaly. Advance stool burden. Dictated by: Kenton Morales D.O. on 10/23/2022 at 9:13 Approved by: Kenton Morales D.O. on 10/23/2022 at 9:19
--- NOTE | 2022-10-23 09:25 | ED_ITS ---
HPI - Male Genitourinary General Chief complaint: Urogenital-Male Stated complaint: Catheter Issue Time Seen by Provider: 10/23/22 09:22 Source: patient and old records reviewed Mode of arrival: EMS Limitations: no limitations History of Present Illness HPI Narrative: This is a 71-year-old male with history of epilepsy, schizophrenia, substance abuse who is brought in for blood in his catheter. Patient describes some abdominal and flank pain, he had some blood in his urine today. He had called EMS for assistance and draining his catheter. They noted some blood or dark urine and recommended that he come to the department. They state it was draining well there were no clots noted. Patient has not noted any. No reported fevers, patient denies chest pain, describes some shortness of breath. He describes some right-sided abdominal and flank pain. He denies any nausea or vomiting. No diarrhea constipation. He states he has been stooling. Catheter was placed here on the 20 of October for urinary retention. Patient states he has been taking some medications. No reported seizure activity. Medics state he was able to stand but did require little bit of assistance and transfer to their gurney. Patient currently lives at home, he is somewhat estranged from his family. He denies tobacco or active alcohol use or any illicit drug use. Related Data Home Medications Medication Instructions Recorded Confirmed [BPH MED] ##0 11/29/16 [HTN MED] ##0 11/29/16 aspirin,buffered (calcium 325 mg PO ##0 11/29/16 carbonate-magnesium) 325 mg tablet (Bufferin) aspirin 81 mg chewable tablet 81 mg PO DAILY 11/19/17 03/15/18 benztropine 0.5 mg tablet 0.5 mg PO TID 11/19/17 03/15/18 fluoxetine 60 mg tablet 60 mg PO DAILY 11/19/17 03/15/18 hydroxyzine pamoate 25 mg capsule 25 mg PO TID PRN Anxiety 11/19/17 03/15/18 risperidone 2 mg tablet 4 mg PO DAILY 11/19/17 03/15/18 Previous Rx's Medication Instructions Recorded meclizine 25 mg tablet 25 mg PO BID PRN vertigo #10 tabs 11/19/17 cephalexin 500 mg capsule 500 mg PO BID #10 caps 04/02/22 levetiracetam 500 mg tablet 500 mg PO BID #60 tabs 08/10/22 tamsulosin 0.4 mg capsule (Flomax) 0.4 mg PO DAILY Urinary retention 10/20/22 20 days #20 caps nitrofurantoin 100 mg PO Q12H 7 days #14 caps 10/23/22 monohydrate/macrocrystals 100 mg capsule (Macrobid) Allergies Allergy/AdvReac Type Severity Reaction Status Date / Time hydrocodone [HYDROCODONE] Allergy Unknown Verified 10/20/22 16:25 Sulfa (Sulfonamide Allergy Unknown Verified 10/20/22 16:25 Antibiotics) [SULFA (SULFONAMIDE ANTIBIOTICS)] Review of Systems Review of Systems ROS Unobtainable: All systems reviewed & are unremarkable except as noted in HPI and below Patient History Medical History Anemia Epilepsy Psychoactive substance abuse Schizophrenia Tobacco abuse Surgical History No significant past surgical history No significant past surgical history Social History household members: none lives independently: Yes occupational status: unemployed Smoking Status: Current some day smoker alcohol intake: never substance use type: does not use Smoking Status: Current some day smoker tobacco type: cigarettes alcohol intake frequency: 0-2 drinks per day Substance Use Type: does not use Exam Narrative Exam Narrative: GENERAL: Alert and oriented x three, mild distress. HEENT: Head normocephalic, atraumatic, EOMI, pupils reactive, face symmetric, moist mucous membranes NECK: Supple, full range of motion CARDIOVASCULAR: Regular rate and rhythm without murmurs, rubs or gallops. RESPIRATORY: Breath sounds equal bilaterally, no wheezes rales or rhonchi. ABDOMEN: Soft, abdominal tenderness. Normoactive bowel sounds all 4 quadrants. No guarding or rebound, rigidity, no mass : No CVA tenderness, Male: normal external examination, no penile discharge or lesions, testicles non-tender, cremasteric reflex intact, no inguinal hernias noted. Patient has catheter in place draining yellow urine, bag as recently been drained by EMS but there is urine in the bag. EXTREMITIES: Normal range of motion, no clubbing or edema. Neurovascularly intact. NEUROLOGICAL: Cranial nerves II through XII grossly intact. Moving all extremities SKIN: Warm, dry, no petechiae, no rashes or lesions. Initial Vital Signs Initial Vital Signs: Vital Signs Temperature 96.9 F L 10/23/22 09:49 Pulse Rate 75 10/23/22 09:49 Respiratory Rate 20 10/23/22 09:49 Blood Pressure 122/70 10/23/22 09:49 Pulse Oximetry 97 10/23/22 09:49 Oxygen Delivery Method Room Air 10/23/22 09:49 Course Orders Ordered: ED Orders 10/23/22 09:22 CT kidney ureter bladder (KUB) Stat 10/23/22 09:37 CBC Auto Diff [Complete Blood Count AUTO DIFF] Stat CMP [Comprehensive Metabolic Panel] Stat Lipase Stat 10/23/22 09:59 COVID19 -Nasal RAPID Stat Ictotest Urine Stat UA Complete [Urinalysis and Microscopic] Stat Urine Culture Stat Discontinued Medications Ceftriaxone Sodium 2,000 mg/ (Sodium Chloride) 100 mls @ 200 mls/hr IV NOW ONE Stop: 10/23/22 11:09 Last Infusion: 10/23/22 12:39 Dose: 0 mls/hr Documented By: Admin: 10/23/22 11:45 Dose: 200 mls/hr Documented By: CHARISSE Vital Signs Vital signs: Vital Signs - 8 hr 10/23/22 09:49 10/23/22 12:08 10/23/22 13:59 Temperature 96.9 F L Pulse Rate 75 69 62 Respiratory Rate 20 21 Blood Pressure 122/70 155/74 H 142/63 H Pulse Oximetry 97 100 97 Oxygen Delivery Method Room Air Room Air Room Air MDM - Male Genitourinary Lab Data 10/23/22 09:37 10/23/22 09:37 Labs: Lab Results 10/23/22 10/23/22 10/23/22 Range/Units 09:37 09:37 09:59 WBC 6.8 (4.5-11.0) X10^3/uL RBC 4.53 (4.5-5.9) X10^6/uL Hgb 12.4 L (13.5-17.5) g/dL Hct 37.7 L (41-53) % MCV 83.2 (80-100) fL MCH 27.5 (26-34) PG MCHC 33.0 (30-36) % RDW 14.7 (11.6-14.8) % Plt Count 280 (150-400) X10^3/uL Neut % (Auto) 68.3 (50-75) % Lymph % (Auto) 20.6 L (25-40) % [place] % (Auto) 6.4 (3-14) % Eos % (Auto) 4.1 H (2-4) % Baso % (Auto) 0.6 (0-2) % Neut # (Auto) 4600 (8273-8763) /uL Lymph # (Auto) 1400 (0082-1755) /uL [place] # (Auto) 400 (0-900) /uL Eos # (Auto) 300 (0-450) /uL Baso # (Auto) 0 (0-100) /uL Sodium 140 (137-145) mmol/L Potassium 4.3 (3.4-5.1) mmol/L Chloride 104 (98-107) mmol/L Carbon Dioxide 32 (22-32) mmol/L BUN 16 (9-20) mg/dL Creatinine 0.82 (0.66-1.25) mg/dL Estimated GFR > 60 (>60) mL/min BUN/Creatinine Ratio 19.5 (6-22) Glucose 102 (80-110) mg/dL Calcium 8.5 (8.4-10.2) mg/dL Total Bilirubin 0.6 (0.2-1.3) mg/dL AST 37 (17-59) IU/L ALT 43 (<50) IU/L Alkaline Phosphatase 96 (38-126) U/L Total Protein 6.9 (6.3-8.2) g/dL Albumin 3.2 L (3.5-5.0) g/dL Globulin 3.7 (1.7-4.1) g/dL Albumin/Globulin Ratio 0.9 L (1.0-2.8) Lipase 67 D (23-300) U/L Urine Color Hunters Urine Appearance Clear Urine pH 7.0 (4.5-8.0) Ur Specific [place] 1.015 (1.000-1.035) Urine Protein 1+ H (Negative) Urine Glucose (UA) Trace H (Negative) g/dL Urine Ketones Negative (NEGATIVE) Urine Occult Blood 3+ H (Negative) Urine Nitrate Positive H (Negative) Urine Bilirubin 1+ H (NEGATIVE) Ur Bilirubin Confirm Negative (Negative) Urine Urobilinogen 4.0 H (0.2) E.U./dL Ur Leukocyte Esterase Negative (NEGATIVE) Urine RBC 10-30/hpf H (0-5/HPF) Urine WBC 1-5/hpf (0-5/HPF) Amorphous Sediment 2+ Urine Bacteria Few (2-10) H (None) Ur Culture Indicated? Specimen cultured SARS-CoV-2 (PCR) (Negative) 10/23/22 Range/Units 09:59 WBC (4.5-11.0) X10^3/uL RBC (4.5-5.9) X10^6/uL Hgb (13.5-17.5) g/dL Hct (41-53) % MCV (80-100) fL MCH (26-34) PG MCHC (30-36) % RDW (11.6-14.8) % Plt Count (150-400) X10^3/uL Neut % (Auto) (50-75) % Lymph % (Auto) (25-40) % [place] % (Auto) (3-14) % Eos % (Auto) (2-4) % Baso % (Auto) (0-2) % Neut # (Auto) (1092-4616) /uL Lymph # (Auto) (5120-1871) /uL [place] # (Auto) (0-900) /uL Eos # (Auto) (0-450) /uL Baso # (Auto) (0-100) /uL Sodium (137-145) mmol/L Potassium (3.4-5.1) mmol/L Chloride (98-107) mmol/L Carbon Dioxide (22-32) mmol/L BUN (9-20) mg/dL Creatinine (0.66-1.25) mg/dL Estimated GFR (>60) mL/min BUN/Creatinine Ratio (6-22) Glucose (80-110) mg/dL Calcium (8.4-10.2) mg/dL Total Bilirubin (0.2-1.3) mg/dL AST (17-59) IU/L ALT (<50) IU/L Alkaline Phosphatase (38-126) U/L Total Protein (6.3-8.2) g/dL Albumin (3.5-5.0) g/dL Globulin (1.7-4.1) g/dL Albumin/Globulin Ratio (1.0-2.8) Lipase (23-300) U/L Urine Color Urine Appearance Urine pH (4.5-8.0) Ur Specific [place] (1.000-1.035) Urine Protein (Negative) Urine Glucose (UA) (Negative) g/dL Urine Ketones (NEGATIVE) Urine Occult Blood (Negative) Urine Nitrate (Negative) Urine Bilirubin (NEGATIVE) Ur Bilirubin Confirm (Negative) Urine Urobilinogen (0.2) E.U./dL Ur Leukocyte Esterase (NEGATIVE) Urine RBC (0-5/HPF) Urine WBC (0-5/HPF) Amorphous Sediment Urine Bacteria (None) Ur Culture Indicated? SARS-CoV-2 (PCR) Negative (Negative) Imaging Data CT scan - abdomen/pelvis: Radiologist's Impression: Bart Adams V??71??M??1950 ? Allergy/Adv: hydrocodone, Sulfa (Sulfonamide Antibiotics) (More??) Close Abdomen/Pelvis CT (Signed) Kenton Morales - 10/23/22 Abdomen/Pelvis CT (Signed) Goyo Huddleston - 10/20/22 EKG Rpt. 10/20/[address] (Signed) Jimi Colunga - 10/12/22 Chest X-Ray (Signed) Sami Alex - 10/12/22 Chest X-Ray (Signed) Call,Black - 08/10/[address] (Signed) Jimi Colunga - 08/10/22 Pelvis X-Ray (Signed) Call,Black - 08/10/22 Head/Neck CTA (Signed) Jimi Colunga - 08/10/22 Chest CTA (Signed) Lois Sierra - 06/23/22 Chest X-Ray (Signed) Lois Sierra - 06/23/22 Wrist X-Ray (Signed) Sam Corrales - 04/01/22 Chest X-Ray (Signed) CorralesSam duckworth - 04/01/[address] (Signed) Jimi Colunga - 04/01/[address] (Signed) Jimi Colunga - 04/01/22 Femur X-Ray (Signed) Lois Sierra - 11/19/[address] (Signed) Lois Sierra - 11/19/[address] (Signed) Lois Sierra - 11/19/17 Launch?[place] [address] CT Scan Report Signed Patient: Bart Adams V MR#: [id number] : 1950 Acct:[id number] Age/Sex: 71 / M Date of Service: 10/23/22 Loc: ED Accession Number: [id number] ?? Procedure: CT kidney ureter bladder (KUB) Ordering Provider: Maddie Senior D.O. PROCEDURE:? CT KIDNEY URETER BLADDER (KUB) ? INDICATIONS:? abd/flank pain, hematuria, catheter in place. ? TECHNIQUE:? Axial sections were acquired from the lung bases to the pubic symphysis.? Coronal and sagittal reformats were performed.? For radiation dose reduction, the following was used: ?automated exposure control, adjustment of mA and/or kV according to patient size.? ? COMPARISON:? [facility], CT, CT ABDOMEN PELVIS W CON, 10/20/2022, 17:15.? [facility], CR, XR CHEST 1 VIEW, 10/21/2022, 17:41. ? FINDINGS:? Image quality:? Excellent.? ? Lung bases:? Fibrotic changes of the lung bases.? There is a more focal opacity at the medial aspect of the right lung base.? This is progressed from comparison..? ? Heart:? Mild coronary vascular calcifications. ? URINARY: Right Kidney:? No stones or hydronephrosis. Right Ureter:? No hydroureter.? ? Left Kidney:? No stones or hydronephrosis. Left Ureter:? No hydroureter.? ? Bladder:? Decompressed by intraluminal Garcia catheter.? No stones.? Questionable wall thickening given decompression. ? ABDOMEN: Liver:? Unremarkable.? ? Gallbladder:? Unremarkable Biliary ducts:? Unremarkable.? ? Pancreas:? Unremarkable.? ? Spleen:? Unremarkable.? ? Adrenal Glands:? Unremarkable.? ? ? Stomach and Bowel:? Stomach, small bowel loops, and colon are without evidence of obstruction.? No acute abnormality.? There is moderate to marked stool burden. Peritoneum:? No abnormal intraperitoneal fluid.? No free air.? ? Ventral Wall: ? No hernia.? Abdominal Nodes:? No enlarged retroperitoneal or mesenteric lymph nodes.? Vessels:? Aorta and inferior vena cava are normal in size.? Diffuse vascular calcifications.? ? PELVIS: Pelvic Organs:? Unremarkable.? ? Pelvic Nodes: Unremarkable. Miscellaneous: No inguinal hernias are seen. ? ? ? Bones:? No acute abnormality.? Anterolisthesis of L4 on L5, grade 1. ? IMPRESSION:? ? Interval decompression of the bladder with intraluminal Garcia catheter.? There is resolution of the previously noted hydroureteronephrosis.? Questionable wall thickening of the urinary bladder given nondistention. ? Prostatomegaly. ? Advance stool burden. ? ? Dictated by: Kenton Morales D.O. on 10/23/2022 at 9:13 ? ? Approved by: Kenton Morales D.O. on 10/23/2022 at 9:19?? MDM Narrative Medical decision making narrative: This is a 71-year-old male with complaint of some abdominal flank pain. Patient has a Garcia catheter reportedly some blood. None appreciated on my exam, no signs of trauma, patient does have nitrite positive urine on UA renal function has improved since he is had his Garcia catheter in place since the , electrolytes and CBC are overall reassuring in his hemoglobin is stable 12 from 13 on the . Patient's CT KUB shows some fibrotic change in the lung base, more focal opacity at the medial base of the right lung, progress from comparison. Mild coronary vascular calcifications, decompress intraluminal Garcia catheter with questionable wall thickening given decompression. No obstructive lesions. Patient given a dose of IV antibiotics no signs of sepsis. Discussed with findings with patient. He is feeling much more comfortable at this time. He would like to return home. Discussed meeting with our social worker delinquency prevention as he has some barriers and would probably benefit from a talk about resources. He is well-known to [facility] and is known to their community senior project coordinator as well, we did reach out to them but run unable to connect. Patient would still like to return home. Discharge Plan Departure Patient Disposition: Home Clinical Impression: Acute UTI, Indwelling Garcia catheter present Instructions: DI for Urinary Tract Infection (UTI) Activity Restrictions/Additional Instructions: Please follow-up for recheck. Follow-up with urology. Your urine does show signs of infection. Take antibiotics until completely gone. Prescription printed. Please return for fevers, altered mental status, new abdominal, back or flank pain, difficulty with draining your bladder, if you are catheter is blocked or has a large clots or other new or concerning changes. Prescriptions: New nitrofurantoin monohyd/m-cryst [Macrobid] 100 mg capsule 100 mg PO Q12H 7 Days Qty: 14 0RF Rx Instructions: must administer with a meal/food No Action aspirin,buffd-calcium carb-mag [Bufferin] 325 MG tablet 325 mg PO Qty: 0 [HTN MED] Qty: 0 [BPH MED] Qty: 0 hydroxyzine pamoate 25 mg Capsule 25 mg PO TID PRN (Reason: Anxiety) risperidone 2 mg Tablet 4 mg PO DAILY fluoxetine 60 mg Tablet 60 mg PO DAILY benztropine 0.5 mg Tablet 0.5 mg PO TID aspirin 81 mg Tablet,Chewable 81 mg PO DAILY meclizine 25 mg tablet 25 mg PO BID PRN (Reason: vertigo) Qty: 10 0RF levetiracetam 500 mg tablet 500 mg PO BID Qty: 60 0RF cephalexin 500 mg capsule 500 mg PO BID Qty: 10 0RF tamsulosin [Flomax] 0.4 mg capsule 0.4 mg PO DAILY 20 Days Qty: 20 0RF Referrals: Miscellaneous,Doctor, MD [Primary Care Provider] - Stand Alone Forms: Patient Portal/API
[2022-10-23 09:47] LABS: Add Manual Diff / Slide Review NO; Basophils Absolute Auto 0 /uL (0-100); Basophils Percent Auto 0.6 % (0-2); Eosinophils Absolute Auto 300 /uL (0-450); Eosinophils Percent Auto 4.1 % (2-4); Hematocrit 37.7 % (41-53); Hemoglobin 12.4 g/dL (13.5-17.5); Lymphocytes Absolute Auto 1400 /uL (1100-4500); Lymphocytes Percent Auto 20.6 % (25-40); Mean Corpuscular Hemoglobin 27.5 PG (26-34); Mean Corpuscular Volume 83.2 fL (80-100); Monocytes Absolute Auto 400 /uL (0-900); Monocytes Percent Auto 6.4 % (3-14); Neutrophils Absolute Auto 4600 /uL (1500-7000); Neutrophils Percent Auto 68.3 % (50-75); Platelet Count 280 X10^3/uL (150-400); Red Blood Cell Count 4.53 X10^6/uL (4.5-5.9); Red Cell Distribution Width 14.7 % (11.6-14.8); White Blood Cell Count 6.8 X10^3/uL (4.5-11.0)
[2022-10-23 09:49] VITALS: BP 122/70; PULSE 75; RESP 20; TEMP 36.1; O2SAT 97; BMI 37.8
[2022-10-23 10:02] LABS: Appearance Urine UA CLEAR; Bilirubin Urine UA 1+ (NEGATIVE); Color Urine UA ORANGE; Glucose Urine UA TRACE g/dL (Negative); Ketones Urine UA NEGATIVE (NEGATIVE); Leukocyte Esterase Urine UA NEGATIVE (NEGATIVE); Nitrite Urine UA POSITIVE (Negative); Occult Blood Urine UA 3+ (Negative); Protein Urine UA 1+ (Negative); Specific Gravity Urine UA 1.015 (1.000-1.035)
[2022-10-23 10:02] LABS: Alanine Aminotransferase 43 IU/L (<50); Albumin 3.2 g/dL (3.5-5.0); Albumin Globulin Ratio 0.9 (1.0-2.8); Alkaline Phosphatase 96 U/L (38-126); Aspartate Aminotransferase 37 IU/L (17-59); BUN Creatinine Ratio 19.5 (6-22); Bilirubin Total 0.6 mg/dL (0.2-1.3); Blood Urea Nitrogen 16 mg/dL (9-20); Calcium 8.5 mg/dL (8.4-10.2); Carbon Dioxide 32 mmol/L (22-32); Chloride 104 mmol/L (98-107); Estimated Glomerular Filt Rate > 60 mL/min (>60); Globulin 3.7 g/dL (1.7-4.1); Glucose 102 mg/dL (80-110); HEMOLYSIS < 15 (0-50); Lipase 67 U/L (23-300); Potassium 4.3 mmol/L (3.4-5.1); Sodium 140 mmol/L (137-145); Total Protein 6.9 g/dL (6.3-8.2)
[2022-10-23 10:09] LABS: Ictotest Urine Negative (Negative); RBC Urine 10-30/HPF (0-5/HPF); WBC Urine 1-5/HPF (0-5/HPF)
[2022-10-23 10:10] LABS: Amorphous Sediment Urine 2+; Bacteria Urine Few (2-10); Culture Indicated Urine Specimen Cultured
[2022-10-23 10:12] LABS: COVID19 -Nasal RAPID Negative (Negative)
[2022-10-23] MEDS: cefTRIAXone 2,000 MG in SODIUM CHLORIDE 0.9% 100 ML 200 MG IV (11:45)
--- NOTE | 2022-10-23 12:00 | PC.NURSE ---
Ambulated pt with walker, passed ambulation trial.
[2022-10-23 12:08] VITALS: BP 155/74; PULSE 69; O2SAT 100
[2022-10-23 13:59] VITALS: BP 142/63; PULSE 62; RESP 21; O2SAT 97
== END 2022-10-23 13:55 | disposition home or self-care (01) ==
PROVIDERS: Emergency Provider Emergency Medicine
DX: N39.0 Urinary tract infection, site not specified (principal); R31.9 Hematuria, unspecified; Z20.822 Contact with and (suspected) exposure to COVID-19; Z97.8 Presence of other specified devices
CPT/HCPCS: 36415; 74176; 80053; 81001; 83690; 85025; 87086; 87635; 96365; 99284; C9803; J0696

== ENCOUNTER 2022-11-09 00:14 | Emergency (ER) | payer MEDICARE, MEDICAID, OTHER, SELFPAY ==
[2022-11-09] VITALS (9 sets, daily range): BP systolic 123–137; BP diastolic 61–68; PULSE 58–65; RESP 16–33; TEMP 36.3; O2SAT 95–99; BMI 17.2
--- NOTE | 2022-11-09 00:15 | DI.RAD.S_ITS ---
PROCEDURE: XR CHEST 1V INDICATIONS: Chest pain TECHNIQUE: One view of the chest was acquired. COMPARISON: [facility], CR, XR CHEST 1V, 10/12/2022, 6:10. FINDINGS: Surgical changes and devices: None. Lungs and pleura: There are increased indistinct opacities in the left lung base. No pleural effusions or pneumothorax. Mediastinum: Mediastinal contours appear normal. Heart size is normal. Bones and chest wall: No suspicious bony lesions. Overlying soft tissues appear unremarkable. IMPRESSION: 1. Increased indistinct opacities in the left lung base are nonspecific but may reflect pneumonia. Dictated by: Sam Corrales M.D. on 11/09/2022 at 2:00 Approved by: Sam Corrales M.D. on 11/09/2022 at 2:01
[2022-11-09 00:32] LABS: Add Manual Diff / Slide Review NO; Basophils Absolute Auto 100 /uL (0-100); Basophils Percent Auto 1.1 % (0-2); Eosinophils Absolute Auto 600 /uL (0-450); Eosinophils Percent Auto 7.7 % (2-4); Hematocrit 36.2 % (41-53); Hemoglobin 12.1 g/dL (13.5-17.5); Lymphocytes Absolute Auto 1900 /uL (1100-4500); Lymphocytes Percent Auto 23.6 % (25-40); Mean Corpuscular HGB Conc 33.4 % (30-36); Mean Corpuscular Hemoglobin 27.7 PG (26-34); Mean Corpuscular Volume 83.1 fL (80-100); Monocytes Absolute Auto 500 /uL (0-900); Monocytes Percent Auto 6.4 % (3-14); Neutrophils Absolute Auto 4900 /uL (1500-7000); Neutrophils Percent Auto 61.2 % (50-75); Platelet Count 308 X10^3/uL (150-400); Red Blood Cell Count 4.35 X10^6/uL (4.5-5.9); Red Cell Distribution Width 15.7 % (11.6-14.8); White Blood Cell Count 7.9 X10^3/uL (4.5-11.0)
--- NOTE | 2022-11-09 00:32 | DI.CT.S_ITS ---
PROCEDURE: CT HEAD/BRAIN WO CON INDICATIONS: L sided tingling TECHNIQUE: Noncontrast 4.5 mm thick angled axial sections acquired from the foramen magnum to the vertex, with coronal and sagittal reformats. For radiation dose reduction, the following was used: automated exposure control, adjustment of mA and/or kV according to patient size. COMPARISON: [facility], CT, CT HEAD/BRAIN WO CON, 10/12/2022, 6:26. FINDINGS: Image quality: Excellent. CSF spaces: Basal cisterns are patent. No extra-axial fluid collections. There is mild cerebral volume loss, with resultant ventricular and sulcal prominence. Brain: No intracranial hemorrhage, mass, or mass effect. There are subcortical, periventricular and deep white matter hypodensities consistent with mild chronic small vessel ischemic changes. The [place]-white matter junction appears preserved. There is intracranial internal carotid artery atherosclerosis. Skull and face: Calvarium and visualized facial bones are intact, without suspicious lesions. Sinuses: Visualized sinuses demonstrate mild mucosal thickening in the ethmoid sinuses. Mastoid air cells are clear. IMPRESSION: 1. No acute intracranial abnormality. Dictated by: Sam Corrales M.D. on 11/09/2022 at 1:14 Approved by: Sam Corrales M.D. on 11/09/2022 at 1:15
--- NOTE | 2022-11-09 00:32 | ED.GENADULT ---
HPI - General Adult General Chief complaint: Chest Pain Stated complaint: chest pain Time Seen by Provider: 11/09/22 00:15 Source: patient and EMS Mode of arrival: EMS Limitations: no limitations History of Present Illness HPI narrative: 71-year-old male who is brought in by BLS for evaluation of when initially was described as chest discomfort. Patient states that he did have some chest discomfort but then he started having tingling that started in his left foot did moved up his left leg and then up to the left side of his chest and is now on the left side of his neck. He states that it made him very scared that he was feeling this way. He does state that the discomfort the left side of his chest and left side of his neck is reproducible with palpation. He denies any headache. No shortness of breath. Related Data Home Medications Medication Instructions Recorded Confirmed [BPH MED] ##0 11/29/16 [HTN MED] ##0 11/29/16 aspirin,buffered (calcium 325 mg PO ##0 11/29/16 carbonate-magnesium) 325 mg tablet (Bufferin) aspirin 81 mg chewable tablet 81 mg PO DAILY 11/19/17 03/15/18 benztropine 0.5 mg tablet 0.5 mg PO TID 11/19/17 03/15/18 fluoxetine 60 mg tablet 60 mg PO DAILY 11/19/17 03/15/18 hydroxyzine pamoate 25 mg capsule 25 mg PO TID PRN Anxiety 11/19/17 03/15/18 risperidone 2 mg tablet 4 mg PO DAILY 11/19/17 03/15/18 Previous Rx's Medication Instructions Recorded meclizine 25 mg tablet 25 mg PO BID PRN vertigo #10 tabs 11/19/17 cephalexin 500 mg capsule 500 mg PO BID #10 caps 04/02/22 levetiracetam 500 mg tablet 500 mg PO BID #60 tabs 08/10/22 Allergies Allergy/AdvReac Type Severity Reaction Status Date / Time hydrocodone [HYDROCODONE] Allergy Unknown Verified 10/20/22 16:25 Sulfa (Sulfonamide Allergy Unknown Verified 10/20/22 16:25 Antibiotics) [SULFA (SULFONAMIDE ANTIBIOTICS)] Review of Systems Constitutional Constitutional: Reports system reviewed and no additional complaints, except as documented Cardiovascular Cardiovascular: Reports system reviewed and no additional complaints, except as documented Respiratory Respiratory: Reports system reviewed and no additional complaints, except as documented Gastrointestinal Gastrointestinal: Reports system reviewed and no additional complaints, except as documented Neurologic Neurologic: Reports system reviewed and no additional complaints, except as documented Hematologic/Lymphatic On Anticoagulants: No Patient History Medical History Anemia Epilepsy Psychoactive substance abuse Schizophrenia Tobacco abuse Surgical History No significant past surgical history No significant past surgical history Social History household members: none lives independently: Yes occupational status: unemployed Smoking Status: Current some day smoker alcohol intake: never substance use type: does not use Smoking Status: Current some day smoker tobacco type: cigarettes alcohol intake frequency: 0-2 drinks per day Substance Use Type: does not use Exam Initial Vital Signs Initial Vital Signs: Vital Signs Temperature 97.3 F L 11/09/22 00:27 Pulse Rate 60 11/09/22 00:27 Respiratory Rate 16 11/09/22 00:27 Blood Pressure 124/64 11/09/22 00:27 Pulse Oximetry 99 11/09/22 00:27 Oxygen Delivery Method Room Air 11/09/22 00:27 Const General: cooperative HENMT Head: normal to inspection and normocephalic Chest Other: Patient does have mild tenderness to palpation the left side of his chest and on the left side of his neck Resp Effort & Inspection: normal respiratory effort Auscultation: clear to auscultation bilaterally Cardio Rate: regular rate Rhythm: regular rhythm GI Inspection: normal to inspection Palpation: soft Skin General: no rashes or lesions noted Neuro General: patient alert, patient awake and moves all extremities Extrem General: capillary refill normal Course Orders Ordered: ED Orders 11/09/22 00:15 XR chest 1V Stat 11/09/22 00:16 EKG-12 Lead Stat 11/09/22 00:22 Complete Blood Count AUTO DIFF Stat Comprehensive Metabolic Panel Stat ETOH [Ethanol (ETOH)] Stat Lipase Stat Troponin & CK Cardiac Panel Stat 11/09/22 00:32 CT head/brain wo con Stat 11/09/22 02:20 Troponin & CK Cardiac Panel Stat Vital Signs Vital signs: Vital Signs - 8 hr 11/09/22 00:27 11/09/22 00:35 11/09/22 01:00 Temperature 97.3 F L Pulse Rate 60 58 L 65 Respiratory Rate 16 28 H 31 H Blood Pressure 124/64 Pulse Oximetry 99 99 97 Oxygen Delivery Method Room Air 11/09/22 01:30 11/09/22 02:00 11/09/22 02:19 Temperature Pulse Rate 60 61 63 Respiratory Rate 26 H 32 H 32 H Blood Pressure Pulse Oximetry 95 95 95 Oxygen Delivery Method 11/09/22 02:19 Temperature Pulse Rate Respiratory Rate Blood Pressure 126/61 Pulse Oximetry Oxygen Delivery Method Medical Decision Making Lab Data Lab results reviewed: Yes I reviewed the patient's lab results. 11/09/22 00:22 11/09/22 00:22 Labs: Lab Results 11/09/22 11/09/22 11/09/22 Range/Units 00:22 00:22 00:22 WBC 7.9 (4.5-11.0) X10^3/uL RBC 4.35 L (4.5-5.9) X10^6/uL Hgb 12.1 L (13.5-17.5) g/dL Hct 36.2 L (41-53) % MCV 83.1 (80-100) fL MCH 27.7 (26-34) PG MCHC 33.4 (30-36) % RDW 15.7 H (11.6-14.8) % Plt Count 308 (150-400) X10^3/uL Neut % (Auto) 61.2 (50-75) % Lymph % (Auto) 23.6 L (25-40) % Bond % (Auto) 6.4 (3-14) % Eos % (Auto) 7.7 H (2-4) % Baso % (Auto) 1.1 (0-2) % Neut # (Auto) 4900 (6994-4269) /uL Lymph # (Auto) 1900 (8459-1862) /uL [place] # (Auto) 500 (0-900) /uL Eos # (Auto) 600 H (0-450) /uL Baso # (Auto) 100 (0-100) /uL Sodium 140 (137-145) mmol/L Potassium 3.8 (3.4-5.1) mmol/L Chloride 108 H (98-107) mmol/L Carbon Dioxide 26 (22-32) mmol/L BUN 28 H (9-20) mg/dL Creatinine 0.82 (0.66-1.25) mg/dL Estimated GFR > 60 (>60) mL/min BUN/Creatinine Ratio 34.1 H (6-22) Glucose 101 (80-110) mg/dL Calcium 8.5 (8.4-10.2) mg/dL Total Bilirubin 0.4 (0.2-1.3) mg/dL AST 30 (17-59) IU/L ALT 20 (<50) IU/L Alkaline Phosphatase 105 (38-126) U/L Total Creatine Kinase 48 L (55-170) U/L CK-MB (CK-2) TNP CK-MB (CK-2) Rel Index TNP Troponin I < 0.012 (0.01-0.034) ng/mL Total Protein 6.8 (6.3-8.2) g/dL Albumin 3.5 (3.5-5.0) g/dL Globulin 3.3 (1.7-4.1) g/dL Albumin/Globulin Ratio 1.1 (1.0-2.8) Lipase 165 (23-300) U/L Ethyl Alcohol < 10 ( - 10) mg/dL 11/09/22 Range/Units 02:20 WBC (4.5-11.0) X10^3/uL RBC (4.5-5.9) X10^6/uL Hgb (13.5-17.5) g/dL Hct (41-53) % MCV (80-100) fL MCH (26-34) PG MCHC (30-36) % RDW (11.6-14.8) % Plt Count (150-400) X10^3/uL Neut % (Auto) (50-75) % Lymph % (Auto) (25-40) % [place] % (Auto) (3-14) % Eos % (Auto) (2-4) % Baso % (Auto) (0-2) % Neut # (Auto) (8723-0524) /uL Lymph # (Auto) (9679-3002) /uL [place] # (Auto) (0-900) /uL Eos # (Auto) (0-450) /uL Baso # (Auto) (0-100) /uL Sodium (137-145) mmol/L Potassium (3.4-5.1) mmol/L Chloride (98-107) mmol/L Carbon Dioxide (22-32) mmol/L BUN (9-20) mg/dL Creatinine (0.66-1.25) mg/dL Estimated GFR (>60) mL/min BUN/Creatinine Ratio (6-22) Glucose (80-110) mg/dL Calcium (8.4-10.2) mg/dL Total Bilirubin (0.2-1.3) mg/dL AST (17-59) IU/L ALT (<50) IU/L Alkaline Phosphatase (38-126) U/L Total Creatine Kinase 41 L (55-170) U/L CK-MB (CK-2) TNP CK-MB (CK-2) Rel Index TNP Troponin I < 0.012 (0.01-0.034) ng/mL Total Protein (6.3-8.2) g/dL Albumin (3.5-5.0) g/dL Globulin (1.7-4.1) g/dL Albumin/Globulin Ratio (1.0-2.8) Lipase (23-300) U/L Ethyl Alcohol ( - 10) mg/dL Imaging Data Chest x-ray: Radiologist's Impression: PROCEDURE:? XR CHEST 1V ? INDICATIONS:? Chest pain ? TECHNIQUE:? One view of the chest was acquired.? ? COMPARISON:? [facility], , XR CHEST 1V, 10/12/2022, 6:10. ? FINDINGS:? ? Surgical changes and devices:? None.? ? Lungs and pleura:? There are increased indistinct opacities in the left lung base.? No pleural effusions or pneumothorax.? ? Mediastinum:? Mediastinal contours appear normal.? Heart size is normal.? ? Bones and chest wall:? No suspicious bony lesions.? Overlying soft tissues appear unremarkable.? ? IMPRESSION:? ? 1. Increased indistinct opacities in the left lung base are nonspecific but may reflect pneumonia.? CT scan - head: Radiologist's Impression: PROCEDURE:? CT HEAD/BRAIN WO CON ? INDICATIONS:? L sided tingling ? TECHNIQUE:? Noncontrast 4.5 mm thick angled axial sections acquired from the foramen magnum to the vertex, with coronal and sagittal reformats.? For radiation dose reduction, the following was used:? automated exposure control, adjustment of mA and/or kV according to patient size.? ? COMPARISON:? [facility], CT, CT HEAD/BRAIN WO JAKI, 10/12/2022, 6:26. ? FINDINGS:? Image quality:? Excellent.? ? CSF spaces:? Basal cisterns are patent.? No extra-axial fluid collections.? There is mild cerebral volume loss, with resultant ventricular and sulcal prominence.? ? Brain:? No intracranial hemorrhage, mass, or mass effect.? There are subcortical, periventricular and deep white matter hypodensities consistent with mild chronic small vessel ischemic changes.? The [place]-white matter junction appears preserved.? There is intracranial internal carotid artery atherosclerosis.? ? Skull and face:? Calvarium and visualized facial bones are intact, without suspicious lesions.? ? Sinuses:? Visualized sinuses demonstrate mild mucosal thickening in the ethmoid sinuses.? Mastoid air cells are clear. ? IMPRESSION:? ? 1. No acute intracranial abnormality.? ECG Data Attestation: I personally reviewed and interpreted this ECG as follows: Interpretation: Sinus rhythm Right axis deviation Normal QRS Normal QTC No ST T wave changes MDM Narrative Medical decision making narrative: Patient has had 2- troponins. Unremarkable EKG. Unremarkable chest x-ray. Unremarkable head CT. Upon my re-evaluation he states that all his symptoms have completely resolved. I do have low suspicion that his symptoms were CVA/TIA. Also have low suspicion that it was ACS. Patient states that he started he would some tingling in his leg and that made him very anxious and potentially made the rest of his symptoms worse. The discomfort that he was having was reproducible with palpation left side of his chest and left-sided his neck. Will discharge patient home with instructions to continue to take his medications as directed. He expressed understanding and agreement. Discharge Plan Departure Patient Disposition: Home Clinical Impression: Chest pain, Distal paresthesia Instructions: DI for Numbness/Tingling Activity Restrictions/Additional Instructions: I recommend that you continue to take all of your medications as directed. Contact your primary doctor for follow-up. Return to the emergency department for new symptoms. Prescriptions: No Action aspirin,buffd-calcium carb-mag [Bufferin] 325 MG tablet 325 mg PO Qty: 0 [HTN MED] Qty: 0 [BPH MED] Qty: 0 hydroxyzine pamoate 25 mg Capsule 25 mg PO TID PRN (Reason: Anxiety) risperidone 2 mg Tablet 4 mg PO DAILY fluoxetine 60 mg Tablet 60 mg PO DAILY benztropine 0.5 mg Tablet 0.5 mg PO TID aspirin 81 mg Tablet,Chewable 81 mg PO DAILY meclizine 25 mg tablet 25 mg PO BID PRN (Reason: vertigo) Qty: 10 0RF levetiracetam 500 mg tablet 500 mg PO BID Qty: 60 0RF cephalexin 500 mg capsule 500 mg PO BID Qty: 10 0RF Referrals: Miscellaneous,Doctor, MD [Primary Care Provider] - Stand Alone Forms: Patient Portal/API
[2022-11-09 00:43] LABS: Ethanol (ETOH) < 10 mg/dL
[2022-11-09 00:44] LABS: Alanine Aminotransferase 20 IU/L (<50); Albumin 3.5 g/dL (3.5-5.0); Albumin Globulin Ratio 1.1 (1.0-2.8); Alkaline Phosphatase 105 U/L (38-126); Aspartate Aminotransferase 30 IU/L (17-59); BUN Creatinine Ratio 34.1 (6-22); Bilirubin Total 0.4 mg/dL (0.2-1.3); Blood Urea Nitrogen 28 mg/dL (9-20); Calcium 8.5 mg/dL (8.4-10.2); Carbon Dioxide 26 mmol/L (22-32); Chloride 108 mmol/L (98-107); Creatine Kinase 48 U/L (55-170); Estimated Glomerular Filt Rate > 60 mL/min (>60); Globulin 3.3 g/dL (1.7-4.1); Glucose 101 mg/dL (80-110); HEMOLYSIS < 15 (0-50); Lipase 165 U/L (23-300); Potassium 3.8 mmol/L (3.4-5.1); Sodium 140 mmol/L (137-145); Total Protein 6.8 g/dL (6.3-8.2)
--- NOTE | 2022-11-09 00:44 | PC.NURSE ---
see triage note for assessment
[2022-11-09 00:56] LABS: Troponin I < 0.012 ng/mL (0.01-0.034)
[2022-11-09 02:36] LABS: Creatine Kinase 41 U/L (55-170)
[2022-11-09 02:49] LABS: Troponin I < 0.012 ng/mL (0.01-0.034)
== END 2022-11-09 03:56 | disposition home or self-care (01) ==
PROVIDERS: Emergency Provider Emergency Medicine
DX: R07.9 Chest pain, unspecified (principal); R20.2 Paresthesia of skin
CPT/HCPCS: 36415; 70450; 71045; 80053; 80320; 82550; 83690; 84484; 85025; 93005; 93010; 99283; 99284

== ENCOUNTER 2023-04-11 07:06 | Emergency (ER) | payer MEDICARE, MEDICAID, OTHER, SELFPAY ==
[2023-04-11] VITALS (16 sets, daily range): BP systolic 134–166; BP diastolic 63–72; PULSE 51–66; RESP 17–37; TEMP 36.6; O2SAT 97–100
--- NOTE | 2023-04-11 07:17 | DI.RAD.S_ITS ---
PROCEDURE: XR HUMERUS RT 2V INDICATIONS: pain after seizure TECHNIQUE: 2 views of the humerus were acquired. COMPARISON: None. FINDINGS: Bones: No fractures or dislocations. No suspicious bony lesions. Soft tissues: No suspicious soft tissue calcifications. IMPRESSION: No acute bony abnormality noted. Dictated by: Jimi Colunga M.D. on 04/11/2023 at 8:04 Approved by: Jimi Colunga M.D. on 04/11/2023 at 8:05
--- NOTE | 2023-04-11 07:17 | DI.RAD.S_ITS ---
PROCEDURE: XR SHOULDER RT MIN 2V INDICATIONS: pain after seizure TECHNIQUE: 3 views of the shoulder were acquired. COMPARISON: None. FINDINGS: Bones: No fractures or dislocations. No suspicious bony lesions. Visualized ribs appear intact. Soft tissues: No suspicious soft tissue calcifications. IMPRESSION: No evidence acute bony abnormality. If clinical suspicion and/or symptoms persist, further assessment with repeat plain films, or advanced imaging (e.g., CT, MRI, or bone scan) may be helpful for further assessment. Dictated by: Jimi Colunga M.D. on 04/11/2023 at 8:05 Approved by: Jimi Colunga M.D. on 04/11/2023 at 8:06
--- NOTE | 2023-04-11 07:24 | ED.GENADULT ---
HPI - General Adult General Chief complaint: Seizure Stated complaint: GLF- right shoulder pain Time Seen by Provider: 04/11/23 07:12 Source: patient and EMS Mode of arrival: EMS Limitations: no limitations History of Present Illness HPI narrative: Patient is a 72-year-old male who is brought in by EMS for evaluation of right shoulder pain. He has a history of epilepsy, schizophrenia and polysubstance abuse. He has been seen in the emergency department in the past for seizures. There was some question as to how compliant that he is with his medication. Here in the ER it is very difficult to understand the patient. He stated that he did have a seizure this morning and he is having right shoulder/upper arm pain. Unsure as to the exact circumstances as the words that the patient this stating are somewhat difficult to understand. He is no gross deformities of any extremities. The patient pushed his own alert button to contact EMS. Related Data Home Medications Medication Instructions Recorded Confirmed [BPH MED] ##0 11/29/16 [HTN MED] ##0 11/29/16 aspirin,buffered (calcium 325 mg PO ##0 11/29/16 carbonate-magnesium) 325 mg tablet (Bufferin) aspirin 81 mg chewable tablet 81 mg PO DAILY 11/19/17 03/15/18 benztropine 0.5 mg tablet 0.5 mg PO TID 11/19/17 03/15/18 fluoxetine 60 mg tablet 60 mg PO DAILY 11/19/17 03/15/18 risperidone 2 mg tablet 4 mg PO DAILY 11/19/17 03/15/18 Previous Rx's Medication Instructions Recorded meclizine 25 mg tablet 25 mg PO BID PRN vertigo #10 tabs 11/19/17 levetiracetam 500 mg tablet 500 mg PO BID #60 tabs 08/10/22 ciprofloxacin HCl 250 mg tablet 250 mg PO BID #6 tabs 11/10/22 Allergies Allergy/AdvReac Type Severity Reaction Status Date / Time hydrocodone [HYDROCODONE] Allergy Unknown Verified 04/11/23 07:28 Sulfa (Sulfonamide Allergy Unknown Verified 04/11/23 07:28 Antibiotics) [SULFA (SULFONAMIDE ANTIBIOTICS)] Review of Systems Review of Systems Narrative: Somewhat limited review of systems based on his presentation and difficulty understanding with the patient has to say. Musculoskeletal Musculoskeletal: Reports system reviewed and no additional complaints, except as documented Neurologic Neurologic: Reports system reviewed and no additional complaints, except as documented Patient History Medical History Anemia Epilepsy Psychoactive substance abuse Schizophrenia Tobacco abuse Surgical History No significant past surgical history No significant past surgical history Social History household members: none lives independently: Yes occupational status: unemployed Smoking Status: Current some day smoker alcohol intake: never substance use type: does not use Smoking Status: Current some day smoker tobacco type: cigarettes alcohol intake frequency: 0-2 drinks per day Substance Use Type: does not use Exam Initial Vital Signs Initial Vital Signs: Vital Signs Pulse Rate 66 04/11/23 07:09 Pulse Oximetry 100 04/11/23 07:09 Const General: No ill appearing HENMT Head: normal to inspection and normocephalic Chest Chest: No crepitus and No tenderness Resp Effort & Inspection: normal respiratory effort Auscultation: clear to auscultation bilaterally Cardio Rate: regular rate Rhythm: regular rhythm GI Inspection: normal to inspection Neuro Other: Patient is able to speak. He does have some shaking movement but is not consistent with a seizure. He did mention this morning that he did have a seizure but does seem somewhat confused about the rest of the circumstances. Extrem Other: No gross deformities but does have discomfort with palpation of his humerus and right shoulder. Course Orders Ordered: ED Orders 04/11/23 07:17 XR humerus RT 2V Stat XR shoulder RT min 2V Stat 04/11/23 07:32 EKG-12 Lead Stat 04/11/23 07:35 Complete Blood Count AUTO DIFF Stat Comprehensive Metabolic Panel Stat Ethanol (ETOH) Stat Lipase Stat Prolactin Stat Discontinued Medications Acetaminophen (Acetaminophen 325 Mg Tablet) 650 mg PO NOW ONE Stop: 04/11/23 08:01 Last Admin: 04/11/23 08:09 Dose: 650 mg Documented By: ITALO Sodium Chloride (Normal Saline 0.9%) 1,000 mls @ 500 mls/hr IV BOLUS ONE Stop: 04/11/23 09:20 Last Admin: 04/11/23 08:09 Dose: 500 mls/hr Documented By: ITALO Vital Signs Vital signs: Vital Signs - 8 hr 04/11/23 07:10 04/11/23 07:09 04/11/23 07:18 Temperature 97.8 F Pulse Rate 59 L 66 59 L Respiratory Rate 18 37 H Blood Pressure 166/72 H Pulse Oximetry 98 100 98 Oxygen Delivery Method Room Air Room Air 04/11/23 07:18 04/11/23 07:30 04/11/23 08:00 Temperature Pulse Rate 64 53 L Respiratory Rate 36 H 26 H Blood Pressure 166/72 H Pulse Oximetry 99 99 Oxygen Delivery Method Room Air Room Air 04/11/23 08:13 04/11/23 08:13 04/11/23 08:30 Temperature Pulse Rate 56 L Respiratory Rate 24 Blood Pressure 161/67 H 148/67 H Pulse Oximetry 99 Oxygen Delivery Method 04/11/23 08:30 04/11/23 09:00 04/11/23 09:00 Temperature Pulse Rate 54 L 56 L Respiratory Rate 29 H 23 Blood Pressure 141/64 H Pulse Oximetry 99 99 Oxygen Delivery Method Medical Decision Making Medical Records Medical records reviewed: Yes I reviewed the patient's medical records. Lab Data Lab results reviewed: Yes I reviewed the patient's lab results. 04/11/23 07:35 04/11/23 07:35 Labs: Lab Results 04/11/23 04/11/23 Range/Units 07:35 07:35 WBC 6.6 (4.5-11.0) X10^3/uL RBC 4.31 L (4.5-5.9) X10^6/uL Hgb 12.7 L (13.5-17.5) g/dL Hct 37.2 L (41-53) % MCV 86.4 (80-100) fL MCH 29.6 (26-34) PG MCHC 34.2 (30-36) % RDW 15.8 H (11.6-14.8) % Plt Count 304 (150-400) X10^3/uL Neut % (Auto) Not Reportable Lymph % (Auto) Not Reportable [place] % (Auto) Not Reportable Eos % (Auto) Not Reportable Baso % (Auto) Not Reportable Lymph # (Auto) Not Reportable [place] # (Auto) Not Reportable Baso # (Auto) Not Reportable Total Counted 100 Seg Neutrophils % 64.0 (38-70) % Band Neutrophils % 1.0 L (3-7) % Lymphocytes % (Manual) 23.0 L (25-45) % Atypical Lymphs % 2.0 H ( - 0) % Monocytes % (Manual) 3.0 (2-11) % Eosinophils % (Manual) 6.0 H (2-4) % Basophils % (Manual) 1.0 (0-1) % Neutrophils # (Manual) 4290 (1623-4921) /uL Smudge Cells 1+ H RBC Morphology See below Anisocytosis 1+ H Ovalocytes 1+ H Acanthocytes (Spur) 1+ Sodium 140 (137-145) mmol/L Potassium 3.8 (3.4-5.1) mmol/L Chloride 107 (98-107) mmol/L Carbon Dioxide 26 (22-32) mmol/L BUN 21 H (9-20) mg/dL Creatinine 0.84 (0.66-1.25) mg/dL Estimated GFR > 60 (>60) mL/min BUN/Creatinine Ratio 25.0 H (6-22) Glucose 91 (80-110) mg/dL Calcium 9.1 (8.4-10.2) mg/dL Total Bilirubin 0.9 (0.2-1.3) mg/dL AST 29 (17-59) IU/L ALT 18 (<50) IU/L Alkaline Phosphatase 92 (38-126) U/L Total Protein 7.1 (6.3-8.2) g/dL Albumin 3.8 (3.5-5.0) g/dL Globulin 3.3 (1.7-4.1) g/dL Albumin/Globulin Ratio 1.2 (1.0-2.8) Lipase 336 H (23-300) U/L Prolactin 22.2 H (3.7-17.9) ng/mL Ethyl Alcohol < 10 ( - 10) mg/dL Imaging Data Extremity x-ray #1: Radiologist's Impression: PROCEDURE:? XR SHOULDER RT MIN 2V ? INDICATIONS:? pain after seizure ? TECHNIQUE:? 3 views of the shoulder were acquired.? ? COMPARISON:? None. ? FINDINGS:? ? Bones:? No fractures or dislocations.? No suspicious bony lesions.? Visualized ribs appear intact.? ? Soft tissues:? No suspicious soft tissue calcifications.? ? IMPRESSION:? No evidence acute bony abnormality. ? If clinical suspicion and/or symptoms persist, further assessment with repeat plain films, or advanced imaging (e.g., CT, MRI, or bone scan) may be helpful for further assessment. Extremity x-ray #2: Radiologist's Impression: PROCEDURE:? XR HUMERUS RT 2V ? INDICATIONS:? pain after seizure ? TECHNIQUE:? 2 views of the humerus were acquired.? ? COMPARISON:? None. ? FINDINGS:? ? Bones:? No fractures or dislocations.? No suspicious bony lesions.? ? Soft tissues:? No suspicious soft tissue calcifications.? ? ? IMPRESSION:? No acute bony abnormality noted. ECG Data Attestation: I personally reviewed and interpreted this ECG as follows: Interpretation: Sinus bradycardia Ventricular rate of 59 Occasional PACs Normal QRS No ST T wave changes MDM Narrative Medical decision making narrative: Does appear that the patient had a seizure this morning. His right shoulder and upper arm x-ray showed no fractures or dislocations. Patient did become much more clear while observation here in the ER. He states that he did have a seizure this morning. He did have shortness of breath prior to the seizure but that has resolved. Patient did ambulate at baseline with his cane to the bathroom. Labs are unremarkable. No indication for head CT. Will discharge patient home. He states he is taking his antiseizure medications as directed. Discharge Plan Departure Patient Disposition: Home Clinical Impression: Seizure, Acute shoulder pain Instructions: DI for Seizure Disorder -- Adult Activity Restrictions/Additional Instructions: I do recommend that you continue to take all of your seizure medications as directed. Your not to drive until you are cleared by either your primary doctor or Neurology. Return to the emergency department for new or worsening symptoms. Prescriptions: No Action aspirin,buffd-calcium carb-mag [Bufferin] 325 MG tablet 325 mg PO Qty: 0 [HTN MED] Qty: 0 [BPH MED] Qty: 0 ciprofloxacin HCl 250 mg tablet 250 mg PO BID Qty: 6 0RF Rx Instructions: Start taking the morning of November 15 and continue to take twice a day until the bottle is empty. risperidone 2 mg Tablet 4 mg PO DAILY fluoxetine 60 mg Tablet 60 mg PO DAILY benztropine 0.5 mg Tablet 0.5 mg PO TID aspirin 81 mg Tablet,Chewable 81 mg PO DAILY meclizine 25 mg tablet 25 mg PO BID PRN (Reason: vertigo) Qty: 10 0RF levetiracetam 500 mg tablet 500 mg PO BID Qty: 60 0RF Referrals: Miscellaneous,Doctor, MD [Primary Care Provider] - Stand Alone Forms: Patient Portal/API
[2023-04-11 07:54] LABS: Hematocrit 37.2 % (41-53); Hemoglobin 12.7 g/dL (13.5-17.5); Mean Corpuscular HGB Conc 34.2 % (30-36); Mean Corpuscular Hemoglobin 29.6 PG (26-34); Mean Corpuscular Volume 86.4 fL (80-100); Platelet Count 304 X10^3/uL (150-400); Red Blood Cell Count 4.31 X10^6/uL (4.5-5.9); Red Cell Distribution Width 15.8 % (11.6-14.8); White Blood Cell Count 6.6 X10^3/uL (4.5-11.0)
[2023-04-11 07:55] LABS: Add Manual Diff / Slide Review YES
[2023-04-11 08:01] LABS: Alanine Aminotransferase 18 IU/L (<50); Albumin 3.8 g/dL (3.5-5.0); Albumin Globulin Ratio 1.2 (1.0-2.8); Alkaline Phosphatase 92 U/L (38-126); Aspartate Aminotransferase 29 IU/L (17-59); Bilirubin Total 0.9 mg/dL (0.2-1.3); Blood Urea Nitrogen 21 mg/dL (9-20); Calcium 9.1 mg/dL (8.4-10.2); Carbon Dioxide 26 mmol/L (22-32); Chloride 107 mmol/L (98-107); Estimated Glomerular Filt Rate > 60 mL/min (>60); Ethanol (ETOH) < 10 mg/dL; Globulin 3.3 g/dL (1.7-4.1); Glucose 91 mg/dL (80-110); HEMOLYSIS < 15 (0-50); Lipase 336 U/L (23-300); Potassium 3.8 mmol/L (3.4-5.1); Sodium 140 mmol/L (137-145); Total Protein 7.1 g/dL (6.3-8.2)
[2023-04-11 08:06] LABS: Neutrophils Absolute Manual 4290 /uL (3000-5900); Total Cells Counted 100
[2023-04-11 08:07] LABS: Acanthocytes 1+; Anisocytosis 1+; Ovalocytes 1+; Smudge Cells 1+
[2023-04-11] MEDS: SODIUM CHLORIDE 0.9% 1,000 ML 500 ML IV (08:09)
[2023-04-11] MEDS: ACETAMINOPHEN 325 MG TABLET 650 MG PO (08:09)
[2023-04-11 08:16] LABS: Prolactin 22.2 ng/mL (3.7-17.9)
--- NOTE | 2023-04-11 09:20 | PC.NURSE ---
Pt states he recalls feeling dizzy and short of breath at home. He pressed his call button, as he lives at home alone, and then he fell and landed on his right side, hitting his right arm and complains of right head pain. Patient alert to the month of march, his name and birthday, but doesnt know the year.
--- NOTE | 2023-04-11 09:40 | PC.NURSE ---
Patient able to walk around the department to the bathroom and states his arm is feeling much better. He denies dizziness or SOB, and is sitting up at bedside with legs dangling and walker in front of him as he refused to lay down. He has home health and said I can call them to arrange a ride home.
--- NOTE | 2023-04-11 09:52 | PC.NURSE ---
I called [facility] to see about getting pt a ride home, waiting for a call back. Pt is unsure if this company is his home health agency or not. Pt states to try calling the [place] police next.
== END 2023-04-11 11:00 | disposition home or self-care (01) ==
PROVIDERS: Emergency Provider Emergency Medicine
DX: M25.511 Pain in right shoulder (principal); G40.909 Epilepsy, unspecified, not intractable, without status epilepticus
CPT/HCPCS: 36415; 73030; 73060; 80053; 80320; 83690; 84146; 85007; 85025; 93005; 96360; 99284

== ENCOUNTER 2023-09-01 04:02 | Emergency (ER) | payer MEDICARE, MEDICAID, OTHER, SELFPAY ==
--- NOTE | 2023-09-01 03:55 | ED.GENADULT ---
HPI - General Adult General Chief complaint: Eye Problems Stated complaint: Grease in eyes last week Time Seen by Provider: 09/01/23 04:10 History of Present Illness HPI narrative: 72-year-old gentleman with a history of schizophrenia, type 2 diabetes, coronary artery disease, history of coronary artery disease, asthma who was brought in by medics reportedly with complaints of eye pain. Apparently approximately a week ago he was splashed with grease in his eye. He has been seen by a physician prior to this. When I went in to speak to this gentleman he was very upset with the triage nurse who he feels was mean to him? he does not need to take this?. According to him she told him he did not need to be angry at her. He was also upset with an additional member of our staff. It is not clear to me which member nor what the complaint actually was I spent almost 10 minutes trying to redirect the patient to his specific medical complaint. He was unable to tell me why he was here and aside from saying that he wanted to talk to his assistant executive housekeeper, was going to ?destroy those 2 women? and ?destroy the entire hospital? it is unclear what his complaints actually are. With multiple attempts to listen, understand and redirect he was not interested in moving forward from these interactions what he considered significantly adverse. While his speech was so quiet it was almost difficult to hear him, he was tangential and perseverating. After approximately 10 minutes when he was unable to move beyond this perceived slight and explain any of his medical complaints he simply stated he wanted to go home. Did not seem to be in any medical distress. His left eye was slightly swollen but not erythematous. He declined any additional exam. Related Data Home Medications Medication Instructions Recorded Confirmed [BPH MED] ##0 11/29/16 [HTN MED] ##0 11/29/16 aspirin,buffered (calcium 325 mg PO ##0 11/29/16 carbonate-magnesium) 325 mg tablet (Bufferin) aspirin 81 mg chewable tablet 81 mg PO DAILY 11/19/17 03/15/18 benztropine 0.5 mg tablet 0.5 mg PO TID 11/19/17 03/15/18 fluoxetine 60 mg tablet 60 mg PO DAILY 11/19/17 03/15/18 risperidone 2 mg tablet 4 mg PO DAILY 11/19/17 03/15/18 Previous Rx's Medication Instructions Recorded meclizine 25 mg tablet 25 mg PO BID PRN vertigo #10 tabs 11/19/17 levetiracetam 500 mg tablet 500 mg PO BID #60 tabs 08/10/22 ciprofloxacin HCl 250 mg tablet 250 mg PO BID #6 tabs 11/10/22 Allergies Allergy/AdvReac Type Severity Reaction Status Date / Time hydrocodone [HYDROCODONE] Allergy Unknown Verified 04/11/23 07:28 Sulfa (Sulfonamide Allergy Unknown Verified 04/11/23 07:28 Antibiotics) [SULFA (SULFONAMIDE ANTIBIOTICS)] Review of Systems Review of Systems ROS Unobtainable: Other (Unwilling to discuss any medical concerns due to his anger at our perfume and toilet water maker) Patient History Medical History (Updated 09/01/23 @ 04:34 by Anju Ruiz MD) Type 2 diabetes mellitus Coronary artery disease Anemia Psychoactive substance abuse Tobacco abuse Epilepsy Schizophrenia Surgical History No significant past surgical history No significant past surgical history Social History household members: none lives independently: Yes occupational status: unemployed Smoking Status: Current some day smoker alcohol intake: never substance use type: does not use Exam Narrative Exam Narrative: General: Alert, soft spoken HEENT: Left eye swollen without significant redness or obvious discharge. Right eye slightly less swollen. Patient declines any more detailed exam than observational from beside the bed Respiratory: Able to speak in full sentences, no obvious respiratory distress Skin: No obvious rashes, warm and dry Neurologic: Grossly intact no obvious asymmetries or abnormalities Psych: Upset with ?being treated like that? but unable to explain what the poor treatment was. Unable to be redirected to focus on medical complaints that brought him to the ER. Speech is tangential, perseverating, slightly pressured and thought process was disjointed Initial Vital Signs Initial Vital Signs: Vital Signs Temperature 98.3 F 09/01/23 04:07 Pulse Rate 65 09/01/23 04:07 Respiratory Rate 19 09/01/23 04:07 Blood Pressure 155/75 H 09/01/23 04:07 Pulse Oximetry 100 09/01/23 04:07 Oxygen Delivery Method Room Air 09/01/23 04:07 Course Vital Signs Vital signs: Vital Signs - 8 hr 09/01/23 04:07 09/01/23 04:25 09/01/23 04:30 Temperature 98.3 F Pulse Rate 65 84 68 Respiratory Rate 19 18 Blood Pressure 155/75 H Pulse Oximetry 100 99 98 Oxygen Delivery Method Room Air Room Air Medical Decision Making MDM Narrative Medical decision making narrative: 72-year-old gentleman with a history of schizophrenia and coronary artery disease presents via medics with report of something splashing in his eye over a week ago and he is still having burning eye pain. Unfortunately he became quite angry with interactions with our triage nurse and was unable to disengage from that anger enough to participate in medical care. He declined any physical exam and stated he is simply wanted to go home. Medical screening exam was done and he is safe for discharge home. Multiple attempts to redirect and deescalate were made and unsuccessful. He was allowed to call his ride and was discharged home. Discharge Plan Departure Patient Disposition: Home Clinical Impression: Eye swelling, bilateral Activity Restrictions/Additional Instructions: I am sorry that you had such a negative experience this evening Unfortunately, you were frustrated enough that you are not able to allow me to examine your eye or even able to explain how I might be able to help. If you would like to return later today for an actual exam and treatment I would be more than happy to re-evaluate Prescriptions: No Action aspirin,buffd-calcium carb-mag [Bufferin] 325 MG tablet 325 mg PO Qty: 0 [HTN MED] Qty: 0 [BPH MED] Qty: 0 ciprofloxacin HCl 250 mg tablet 250 mg PO BID Qty: 6 0RF Rx Instructions: Start taking the morning of November 15 and continue to take twice a day until the bottle is empty. risperidone 2 mg Tablet 4 mg PO DAILY fluoxetine 60 mg Tablet 60 mg PO DAILY benztropine 0.5 mg Tablet 0.5 mg PO TID aspirin 81 mg Tablet,Chewable 81 mg PO DAILY meclizine 25 mg tablet 25 mg PO BID PRN (Reason: vertigo) Qty: 10 0RF levetiracetam 500 mg tablet 500 mg PO BID Qty: 60 0RF Stand Alone Forms: Patient Portal/API
[2023-09-01 04:07] VITALS: BP 155/75; PULSE 65; RESP 19; TEMP 36.8; O2SAT 100; BMI 19.9
--- NOTE | 2023-09-01 04:13 | PC.NURSE ---
GROUP TESTER note: Patient at 0412, right when he came in, began to yell Hey! Hey! slamming this hands on the bed rails. Patients' call draper was within reach. I asked patient what was going on I want to leave right now. I'm going home! He began to complain that the nurse was mean. I said she's just asking you questions. Patient said well I'm going to get her in trouble. You can't stop me from leaving. Patient began to push himself off the bed, based on age, size, and chief complaint I was afraid of a fall. I told him I didn't him to hurt himself if he got out of bed. Patient slammed his hands down on the bed again and said Stop talking! I don't want to hear you no more! I reminded him that per hospital emergency room policy, he doesn't get to use abusive language towards staff. Well then shut the fuck up. Asked him to stay in bed and left. channel lip stiffener insoles Hakan heard the conversation. Patient wants to go home, called the person EMS told us was his ride (Officer Esteban Hensley), left message. Alerted Hakan. Call light with in reach, bed lowered for safely, bed rails up.
[2023-09-01 04:25] VITALS: PULSE 84; O2SAT 99
[2023-09-01 04:30] VITALS: PULSE 68; RESP 18; O2SAT 98
== END 2023-09-01 04:45 | disposition home or self-care (01) ==
PROVIDERS: Emergency Provider Emergency Medicine
DX: H57.13 Ocular pain, bilateral (principal)
CPT/HCPCS: 99281; 99282